=== PATIENT | male | born 1985 | race Caucasian/White ===

== ENCOUNTER 2020-09-02 21:28 | Outpatient (REF) | payer MEDICAID, SELFPAY ==
[2020-09-02 21:59] LABS: HCT 43.7 % (40.0-50.0); HGB 14.9 g/dL (13.5-17.5); MCH 33.5 pg (27.0-33.0); MCHC 34.1 % (32.0-36.0); MCV 98.2 fL (80-95); RBC 4.45 10^6/uL (4.36-5.78); RDW 13.8 % (11.8-14.1); RDW-SD 50.4 fL; WBC 6.06 10^3/uL (4.4-10.8)
[2020-09-02 22:03] LABS: ALT 32 U/L (16-63); AST 21 U/L (15-37); Albumin 3.9 g/dL (3.4-5.0); Alkaline Phosphatase 84 U/L (46-116); Anion Gap 7.2 mmol/L (3-11); BUN 11 mg/dL (7-18); Bilirubin, Total 0.4 mg/dL (0.2-1.0); CO2 27.8 mmol/L (21.0-32.0); CREATININE 0.9 mg/dL (0.70-1.30); Calcium 9.4 mg/dL (8.5-10.1); Calculated LDL 147 mg/dL (<100); Chloride 106 mmol/L (98-107); Cholesterol 207 mg/dL (<200); Glucose 85 mg/dL (74-106); HDL Cholesterol 35 mg/dL (40-60); Potassium 4.5 mmol/L (3.5-5.1); Sodium 141 mmol/L (136-145); Total Protein 7.6 g/dL (6.4-8.2); Triglyceride 125 mg/dL (<150)
[2020-09-04 08:52] LABS: HBs Antibody, Quant <3.1 mIU/mL (See Note); Hepatitis B Surface Ab Negative (See Note)
[2020-09-04 09:00] LABS: Hepatitis B Surface Ag Negative (Negative)
[2020-09-04 10:09] LABS: Hepatitis C Ab w Rflx HCV PCR Negative (Negative)
[2020-09-04 10:19] LABS: Hep A Total Ab w Rflx IgM Negative (Negative)
[2020-09-04 11:20] LABS: Syphilis Serology (RPR) Negative (Negative)
[2020-09-04 12:54] LABS: HIV-1/2 Ag & Ab Screen Reactive (Negative)
[2020-09-04 13:17] LABS: HIV 1 Ab Diff Positive (Negative)
[2020-09-04 13:18] LABS: HIV 2 Ab Diff Indeterminate (Negative)
[2020-09-04 14:11] LABS: Chlamydia Result Negative (Negative); GC Result Negative (Negative)
== END 2020-09-02 21:29 | disposition home or self-care (01) ==
LOC: LBN 21:28
PROVIDERS: Visit Provider Nurse Practitioner Family
DX: R63.5 Abnormal weight gain (principal); R49.0 Dysphonia; Z13.220 Encounter for screening for lipoid disorders; Z11.4 Encounter for screening for human immunodeficiency virus [HIV]; Z11.59 Encounter for screening for other viral diseases; Z11.3 Encounter for screening for infections with a predominantly sexual mode of transmission; Z51.81 Encounter for therapeutic drug level monitoring
CPT/HCPCS: 80053; 80061; 85027; 86701; 86702; 86706; 86709; 86803; 87340; 87389; 87491; 87591; 86592

== ENCOUNTER 2020-09-11 13:20 | Outpatient (CLI) | payer MEDICAID, SELFPAY ==
--- NOTE | 2020-09-11 17:51 | CCCE_ITS ---
Date of service: 09/11/20 Time of Service: 17:51 Comprehensive Care Clinic Note Note: [facility] [address] [place] [address] Initial [facility] Visit Information New Diagnosis of HIV Name: Josh Appiah Date of : 1985 Primary Care Provider: None Date of Service: 09/11/2020 SUBJECTIVE CC: ?I was told I have HIV by the [facility] and that you were the HIV clinic closest to [place]. They said they would refer me.? HPI: Josh Navarro is currently living in [place] having moved there during from [facility]. He had moved from [place] to [place] early this year. He says that while living there he got sick and has not felt well since the middle of June. He says he has had ?Laryngitis? and last went to the [facility] on [facility] last asking to be referred to ENT. The DENTAL CREAM MAKER there had blood work drawn with Josh Navarro?s consent. He says his last HIV test that was negative was last summer. 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 Had one sexual encounter there early this spring but thought it was safer sex. Soon after that he became ill with ?sinusitis? and an infection in his umbilicus. He was seen at a walk in clinic and given antibiotics which cleared up the umbilical infection but he thinks he never got rid of infection in his sinuses. ?I was sick for a couple weeks.? ROS Constitutional: Fatigue which was much worse in June for a couple weeks ? ?I could barely get out of bed.? Says his overall energy level is diminished from what is was a few months ago. In June also had fever, chills and night sweats. Skin: Had a light rash on his thighs and it was puretic, still at time feels itchy on the lateral thighs and on his head, but has not noted any rash or flaking of his scalp. Has long standing ?athletes foot? on both feet that has gotten worse. Head: No H/O head injury or headaches Eyes: had blurry vision in June for a few days ?when sick? that cleared. Ear/Nose/Throat: Has had hoarse throat for 2 ? months and says ?I?m a colin? and sinus drainage Mouth/Teeth: Good repair, denies mouth sores Neck: Denies pain or swelling CV: Denies palpitations or chest pain Respiratory: Denies cough or dyspnea GI: Has had some abd pain after eating and before BMs. No N/V/C/D. Says he had GERD when was 130 # heavier in his teens and early 20s. Lost that weight and none since. : Negative Musculoskeletal: Says he has a curvature of his spine, has had some hand and should joint aching and stiffness since June Endocrine: Negative Lymphatic: Has not noted any enlarged nodes Hematologic: Denies unusual bruising or bleeding Immunologic: Non sig in the past Psychiatric: Anxiety with some depression - never medicated. Denies HI or SI Allergies/Sensitivities: PCN - rash Current Medications: None Past medications Ineffective: None Past Medical History: Non sig Past Surgical History: Appendectomy in 2014 Past Psychiatric History: H/O anxiety with some depression but never medicated. Denies psychiatric hospitalization, never suicidal. Social History: Place of : [facility], grew up in [place] Gender: Male, identifies as Mata Racial Distribution: Primary Language: Gabonese Secondary Language(s): Greenlandic Current County, State of Residence: [place], [place] Marital Status: Single Family Size: Now 2 ? he is living with his Mother currently since he was ill in [place] in June. 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 Never had birds or reptiles as pets. Housing: Stable with his Mother Incarceration History: Denies History: Denies Highest Grade Completed: 2 years of college Able to read? Yes Employment: Not currently due to Covid Type of work: Musician - [employer] Income(s)/Means of Financial Support: He last worked in [place] for a few months and has a little money, his Mother is helping him right now. 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 Health Insurance: Medicaid Other payment source: None Coverage Issues: None at present ? will get VMAP Substance Abuse History: Denies Tobacco: Y If Y: Smoker ? Type/Amount: 1 ppd cigarettes ? wants to quit, has quit twice in the past ? once for 8 months and once for a year. ETOH: rare Illicit Drug Use: Denies Rx Drug Dependence: Denies IVDU Hx: Never Other Psychosocial Considerations: His Father just today. He is a bit overwhelmed with all the issues this week and the shock of his Father dying but felt it was important he come to see me today and not put it off. He has been very HIV aware and careful for many years and was taking PreP (Truvada) daily, ?I never missed a pill?, until able 1 ? years ago when due to insurance coverage issues he was not able to continue the RX. He says he has safer sex all the time and with people who, like him were on PreP and got tested regularly. His last test that was negative was last summer after his last sexual encounter in [place]. He moved to [place] where some family offered him a temporary job and that is where he met his most recent and last sexual partner, which was in [place]. He has not had sexual partners in [place] since arriving here a few weeks ago. Family History Mother: Allergies buy healthy Father: as of today, CAD, CHF, /P Bypass surgery, HTN, Heavy smoker Siblings: B ? who is in recovery from heroin Addiction, Sister who is A&W Children: None Grand Parents: All ? Paternal had DM Extended: Maternal Uncle of AIDS in [place] in the Immunization History Tetanus/TDAP: Unknown Hepatitis A: ? Hepatitis B: had one shot Flu Vaccine: No Pneumovax 23: No Prevnar 13: No Singrix: NA Menactra: No other: Covid ? Pfizer on 08/10/20 & 08/31/20 In [facility] Lipids/Glucose: normal ID Screenings PPD/Quantiferron: Not done OBJECTIVE Height: 5?10?Weight: 175 Temp: 97.4, Pulse: 84, Respirations: 16, Blood Pressure: 130/80 General: WDWNL Skin: No rashs notes, Has evidence of cracking and white between his toes ? No erythema Head: NC AT Eyes: Non icteric Ears/Nose: Clear, some frontal and maxillary sinus tenderness bilaterally Mouth/Teeth: In good repair, no lesions Pharynx: clear Neck: supple CV/Pulses: RRR, No MCRG Chest Lungs: Clear in all lobes Abdomen: NABS, ND, NT no palpable OGM Extremities: No deformities Musculoskeletal: Mild back scoliosis, no swollen or erythematous joints Neuro: grossly normal : NE Rectal: NE Lymphatic: One slightly enlarged, rubbery node in the right anterior cervical chain Psychiatric: - appearance: well groomed - eye contact: good - attitude: cooperative - speech: clear/coherent - affect: appropriate - mood: anxious - memory: short-term intact, manager terminal intact - self-perception: wnl - motor activity: normal - orientation: intact - attention: intact - thought content: wnl - perceptions: wnl - judgement: intact - insight: excellent ASSESSMENT/PLAN MD visit scheduled: October 14, 2020 Release of Records: Signed to get records from [facility] as the referral was sent to [facility] instead of [facility] Social Work/Psychiatry referral: Referred to [facility] and No Psychiatry referral needed. [facility]: Spoke with Nghia Echeverria at [facility] and Josh Navarro will look for his call Lab work ordered (if not done recently) - CBCD - CD4/8 Immunodeficiency Panel - Comprehensive Metabolic Profile - Magnesium - B12/Folate - Hepatitis Screening HAV tAb ordered, HBV Ag/sAb done /cAb ordered - Syphilis Screening/RPR done - GC, Chlamydia screen (first AM void) will need in the future Provider of Care: Destiny Jhaveri, MSN, DENTAL CREAM MAKER
== END 2020-09-11 13:21 | disposition home or self-care (01) ==
LOC: CCC 13:22
PROVIDERS: Visit Provider Nurse Practitioner Family
DX: B20 Human immunodeficiency virus [HIV] disease (principal); F41.9 Anxiety disorder, unspecified; B35.3 Tinea pedis
CPT/HCPCS: 99205

== ENCOUNTER 2020-09-18 03:51 | Outpatient (CLI) | payer MEDICAID, SELFPAY ==
[2020-09-18 09:08] LABS: Abs Immature Grans 0.01 10^3/uL (0.0-0.06); Absolute Basophil Count 0.05 10^3/uL (0.0-0.2); Absolute Eosinophil Count 0.21 10^3/uL (0.0-0.7); Absolute Lymphocyte Count 2.55 10^3/uL (1.2-3.4); Absolute Monocyte Count 0.62 10^3/uL (0.1-0.8); Absolute Neutrophil Count 2.64 10^3/uL (1.2-6.7); Basophils % 0.8; Eosinophils % 3.5; HCT 43.4 % (40.0-50.0); HGB 14.7 g/dL (13.5-17.5); Immature Grans % 0.2; Lymphocytes % 41.9; MCH 33.6 pg (27.0-33.0); MCHC 33.9 % (32.0-36.0); MCV 99.3 fL (80-95); MPV 9.4 fL (8.0-11.0); Monocytes % 10.2; Neutrophils % 43.4; Nucleated RBC 0 %; Platelet Count 221 10^3/uL (130-400); RBC 4.37 10^6/uL (4.36-5.78); RDW 13.2 % (11.8-14.1); RDW-SD 48.9 fL; WBC 6.08 10^3/uL (4.4-10.8)
[2020-09-18 10:07] LABS: ALT 29 U/L (16-63); AST 20 U/L (15-37); Albumin 3.6 g/dL (3.4-5.0); Alkaline Phosphatase 66 U/L (46-116); Anion Gap 8.3 mmol/L (3-11); BUN 11 mg/dL (7-18); Bilirubin, Total 0.4 mg/dL (0.2-1.0); CO2 27.7 mmol/L (21.0-32.0); Chloride 108 mmol/L (98-107); Folate 13.2 ng/mL (8.6-20.0); Glucose 92 mg/dL (74-106); Magnesium 1.7 mg/dL (1.8-2.4); Sodium 144 mmol/L (136-145); Total Protein 7.1 g/dL (6.4-8.2); Vitamin B12 344 pg/mL (193-986)
[2020-09-19 11:17] LABS: Hep B Core Antibody Negative (Negative)
[2020-09-19 11:26] LABS: Hep A Total Ab w Rflx IgM Negative (Negative)
[2020-09-19 14:48] LABS: HIV 1 RNA Qualitative Detected copies/mL (Undetected); HIV 1 RNA Quantitative 9563 copies/mL (Undetected)
[2020-09-19 15:48] LABS: 4/8 Ratio 0.63 (>=0.90); Absolute CD3 2377 Cells/uL (840-2,669); Absolute CD8 1448 Cells/uL (154-1,097); CD3 88 % (56-84); CD4 34 % (31-64); CD8 54 % (9-39)
[2020-09-26 09:18] LABS: Doravirine SUSC; Emitricitabine SUSC; HIV-1 Genotypic PR-RT Drug Res INTERP; Lopinavir and Ritonavir SUSC; Tipranavir andRitonavir SUSC
== END 2020-09-18 03:52 | disposition home or self-care (01) ==
LOC: LBO 03:51
PROVIDERS: Visit Provider Nurse Practitioner Family
DX: B20 Human immunodeficiency virus [HIV] disease (principal)
CPT/HCPCS: 36415; 80053; 86704; 86709; 87536; 82607; 82746; 83735; 85025; 86359; 86360; 87901

== ENCOUNTER 2020-10-11 23:39 | Emergency (ER) | payer MEDICAID, SELFPAY ==
[2020-10-11 23:45] VITALS: BP 156/86; PULSE 72; RESP 20; TEMP 37.2; O2SAT 98
--- NOTE | 2020-10-11 23:49 | ED.GENADUL_ITS ---
Discharge Plan Disposition Patient Disposition: HOME Condition: Good Discharge Details Clinical Impression: Esophagitis, URI (upper respiratory infection) Primary Care Provider: Isai Gracia ED Provider: Rakesh Ortiz [place] Meds and New Rx's Prescriptions: New pantoprazole 40 mg tablet,delayed release (DR/EC) 40 mg PO DAILY Qty: 30 RF: 0 Continued sertraline [Zoloft] 50 mg Tablet 50 mg PO DAILY RF: 0 Discharge Instructions Additional Instructions: CT scan suggests thickening of the wall of the esophagus consistent with esophagitis. Given your recent CD4 count which was very good doubt opportunistic infection. We will treat as acid related disease and start pantoprazole. Avoid caffeine, nonsteroidals, alcohol, tobacco. If worsening symptoms or no improvement would likely need EGD. Otherwise, symptoms seem viral in nature and while unlikely to be Covid swab will be sent. Be sure to rest and drink plenty of fluids. Use acetaminophen as needed for discomfort. Follow-up with primary care as planned. Return to ED if inability to swallow, difficulty breathing, worsening or new chest pain, vomiting blood, other concerns. Stand Alone Forms: PENDING COVID-19 TESTING Referrals: Isai Gracia [Primary Care Provider] - Medical Decision Making Patient presenting with 3 days of sore throat now associated with cough, pain with swallowing pulse in the throat and the chest, pleuritic right-sided pain. He is afebrile here. Saturations are normal. Pulses normal. He does not talk. Some erythema and edema of the uvula with very tiny ulcers present suggesting viral etiology. No evidence of thrush, exudate, oropharyngeal edema. Lung sounds clear. In reviewing his laboratory studies from work-up of his newly diagnosed HIV, his CD4 count is greater than 500. Unlikely that he has any opportunistic infection. However, the pain with swallowing in his chest concerns for possibility of mass, lymph node. Will place IV and get CBC and CMP to compare to previous as well as CTA chest. Laboratory studies look fine tonight. CTA of the chest reveals no PE or dissection. No acute lung pathology. Evidence of thoracic esophageal mural thickening consistent with esophagitis. Given that patient's CD4 count is so good doubt that this is opportunistic infection like Loreta or CMV. More likely acid reflux and will treat as such with caveat that he will need EGD if worsening symptoms or no improvement. He has follow-up this coming week. Will swab for Covid prior to discharge given sore throat and cough though unlikely given his vaccination status. Supportive care but would avoid ibuprofen given the esophagitis and stick with acetaminophen for discomfort. Return to ED for inability to swallow, difficulty breathing, worsening pain, vomiting blood, other concerns. Medical Records Medical records reviewed: Yes I reviewed the patient's medical records. Lab Data Lab results reviewed: Yes I reviewed the patient's lab results. HPI General Mode of arrival: ambulatory . Date/Time Provider Initiated Documentation: 10/11/20 23:44 . Limitations to Documentation: no limitations . Information obtained by: patient, RN notes reviewed and old records reviewed . HPI Narrative: Patient presents to ED with right sided chest pain that is worse with swallowing, breathing. Patient states 3 days ago he developed sore throat and swollen lymph nodes in his neck. He has not had fever or chills. He has subsequently developed cough which is productive of increased sputum. Also developed the pain on the right side within the last day. He denies feeling short of breath. He denies any abdominal pain or GI symptoms. He denies any headache or earache. He has had Covid vaccinations. He has also recently been diagnosed HIV positive. Has an appointment this coming week to start medications. He denies rash, myalgias, arthralgias. He did take some ibuprofen before coming in. States that it feels like something is stuck there whenever he tries to swallow with discomfort when coughing or breathing. Related Data Home Medications Medication Instructions Recorded Confirmed pantoprazole 40 mg PO DAILY #30 tab 10/12/20 sertraline [Zoloft] 50 mg PO DAILY 10/12/20 10/12/20 Previous Rx's Medication Instructions Recorded pantoprazole 40 mg PO DAILY #30 tab 10/12/20 Allergies Allergy/AdvReac Type Severity Reaction Status Date / Time amoxicillin Allergy Unverified 10/12/20 00:01 Penicillins Allergy Unverified 10/12/20 00:02 Review of Systems Narrative: 01/02 Review of Systems completed and is negative except as stated above in HPI (Systems reviewed: Const, Eyes, ENT, Resp, CV, GI, , MSK, Skin, Neuro) [facility] Medical History HIV (human immunodeficiency virus infection) Surgical History S/P appendectomy Social History Smoking/Tobacco Use Status: Current every day Tobacco Type: cigarettes Smoking risk assessment performed?: Yes Alcohol Intake: current Alcohol Intake frequency: holidays/special occasions only Drug use: Socially Substance use type: marijuana Do you feel safe at home: Yes Do you feel safe in your relationship?: Yes Exam Narrative Exam Narrative: Const: WDWN male in NAD. HEENT: NC/AT. Normal facial exam. Oropharynx with mild erythema and edema of the uvula and very small ulcerations. No edema or erythema elsewhere. No exudate. Eyes: Normal conjunctiva and sclera. Neck: Supple. Trachea midline. Enlarged cervical adenopathy anteriorly which are tender to palpation. Lungs: Normal respiratory effort. Lungs are clear. Cor: RRR without murmur/gallop. Good radial pulses. GI: Soft. NT/ND. No guarding or rebound. Neuro: A+O x 3. Normal speech, mentation, gait. Cranial nerves II - XII grossly intact. No gross motor or sensory deficit. Ext: No C/C/E. No calf tenderness. Skin: Warm and dry without rash.
[2020-10-12] VITALS (7 sets, daily range): BP systolic 137–155; BP diastolic 77–81; PULSE 68–81; RESP 15–20; O2SAT 96–98
[2020-10-12 00:23] LABS: Abs Immature Grans 0.03 10^3/uL (0.0-0.06); Absolute Basophil Count 0.08 10^3/uL (0.0-0.2); Absolute Lymphocyte Count 2.55 10^3/uL (1.2-3.4); Absolute Monocyte Count 1.01 10^3/uL (0.1-0.8); Absolute Neutrophil Count 5.65 10^3/uL (1.2-6.7); Basophils % 0.8; Eosinophils % 3.1; HCT 44.6 % (40.0-50.0); HGB 15.3 g/dL (13.5-17.5); Immature Grans % 0.3; Lymphocytes % 26.5; MCH 33.1 pg (27.0-33.0); MCHC 34.3 % (32.0-36.0); MCV 96.5 fL (80-95); MPV 8.7 fL (8.0-11.0); Monocytes % 10.5; Neutrophils % 58.8; Nucleated RBC 0 %; Platelet Count 229 10^3/uL (130-400); RBC 4.62 10^6/uL (4.36-5.78); RDW-SD 45.7 fL; WBC 9.62 10^3/uL (4.4-10.8)
[2020-10-12 00:38] LABS: ALT 15 U/L (16-63); AST 17 U/L (15-37); Albumin 3.7 g/dL (3.4-5.0); Alkaline Phosphatase 90 U/L (46-116); Anion Gap 12.5 mmol/L (3-11); BUN 17 mg/dL (7-18); Bilirubin, Total 0.3 mg/dL (0.2-1.0); CO2 23.5 mmol/L (21.0-32.0); CREATININE 0.8 mg/dL (0.70-1.30); Calcium 9.5 mg/dL (8.5-10.1); Chloride 104 mmol/L (98-107); Glucose 133 mg/dL (74-106); Potassium 4.2 mmol/L (3.5-5.1); Sodium 140 mmol/L (136-145); Total Protein 7.8 g/dL (6.4-8.2)
[2020-10-12] MEDS: Normal Saline - Diluent 50 ML VIAL IV (00:47)
[2020-10-12] MEDS: Normal Saline Flush 10 ML SYR IVP (00:47)
[2020-10-12] MEDS: Omnipaque 350 MG/ML 100 ML BTL IJ (00:47)
--- NOTE | 2020-10-12 00:48 | DI.CT_ITS ---
Exam(s) CT CHEST PE CTA EXAM: CT CHEST PE CTA CLINICAL HISTORY: right side pleuritic CP. TECHNIQUE: Imaging Protocol: Axial CT angiography was performed with multi-slice acquisition and mu lti-planar and/or 3D reconstructions. CONTRAST MATERIAL: Intravenous: Omnipaque 350 Contrast volume:58 mL COMPARISON: No exams were available for comparison FINDINGS: Tracheobronchial tree: Patent where visualized. Pulmonary parenchyma: There are few scattered noncalcified pulmonary nodules. They measure up to 4 m m in size. A few are associated with a fissure and may represent perifissural lymph nodes. No archi tectural distortion. Pulmonary Arteries: No evidence of filling defect to suggest pulmonary emboli. Mediastinum and Loretta: No dominant adenopathy or fluid collection. There does appear to be diffuse cir cumferential thickening of the visualized esophagus. Visualized thyroid gland: Unremarkable. Pleura: No effusion or pneumothorax. Heart: The heart is not dilated. No coronary artery calcifications are seen. No pericardial effusion. Aorta: Thoracic aorta non-dilated. No evidence of dissection. Upper abdomen: Unremarkable. Soft tissues: Unremarkable. Bones: Normal. IMPRESSION: 1. No evidence of pulmonary embolism, thoracic aortic dissection or aneurysm. 2. Circumferential esophageal thickening. Inflammatory infectious esophagitis may have this appearan ce. Please correlate clinically. Follow-up as clinically appropriate. 3. Small scattered noncalcified pulmonary nodules. If there is no significant clinical history, no f ollow-up is recommended. If appropriate clinical history (history of smoking or other risk factors), consider 12 month follow-up CT scan of the chest. RADIATION DOSE DELIVERED: 374.27mGy.cm Total DLP DATA REPOSITORY: All CT scans at this facility are submitted to the National Radiology Data Registry (NRDR) Dose Index Registry (DIR) with the [employer] (ACR). RADIATION OPTIMIZATION: All CT scans at this facility use at least one of these dose optimization te chniques: automated exposure control; mA and/or kV adjustment per patient size (includes targeted exa ms where dose is matched to clinical indication); or iterative reconstruction.
[2020-10-12] MEDS: Lactated Ringers 1,000 ML 200 ML IV (00:50)
--- NOTE | 2020-10-12 00:57 | DI.VRAD_ITS ---
PROCEDURE INFORMATION: Exam: CTA Chest With Contrast Exam date and time: 10/12/2020 12:16 AM Age: 35 years old Clinical indication: Other: Right side pleuritic cp TECHNIQUE: Imaging protocol: Computed tomographic angiography of the chest with contrast. 3D rendering (Not supervised by radiologist): MIP and/or 3D reconstructed images were created by the technologist. Radiation optimization: All CT scans at this facility use at least one of these dose optimization techniques: automated exposure control; mA and/or kV adjustment per patient size (includes targeted exams where dose is matched to clinical indication); or iterative reconstruction. Contrast material: OMNIPAQUE 350; Contrast volume: 58 ml; Contrast route: INTRAVENOUS (IV); COMPARISON: No relevant prior studies available. FINDINGS: Pulmonary arteries: No pulmonary embolism identified. Aorta: No thoracic aortic aneurysm or dissection. Thyroid: Thyroid gland partially excluded from view but grossly unremarkable through its visualized portion. Lungs: No pulmonary consolidation. 4 mm x 8 mm oval nodular pulmonary density on the right, image 34 of series 4. Pleural spaces: No pleural effusion or pneumothorax. Heart: Normal sized heart. Mediastinal space: Circumferential mural thickening throughout much of the thoracic esophagus. Esophagitis? Lymph nodes: No pathologically enlarged mediastinal or hilar lymph nodes. Bones/joints: Lower ribs partially excluded from view and incompletely evaluated. Otherwise, no acute fracture seen among the bones of the chest. Spinal degenerative change with endplate irregularities and small Schmorl's nodes at multiple levels. Soft tissues: No gross soft tissue mass or fluid collection seen in the chest wall. IMPRESSION: 1. No active disease is seen in the chest. 2. Circumferential mural thickening throughout much of the thoracic esophagus. Esophagitis could have this appearance. Clinical correlation is recommended. esophageal mucosa could be better evaluated by endoscopy. Dictated and Authenticated by: Ramon Whitney MD. Ordering:CY Cameron MD
[2020-10-13 10:32] LABS: COVID-19 RT-PCR UVMMC Result Negative (Negative)
--- NOTE | 2020-10-13 17:43 | NUR.NOTE ---
notified by phone that covid swab is negative.Nursing Note:
== END 2020-10-12 01:30 | disposition home or self-care (01) ==
PROVIDERS: Emergency Provider Emergency Medicine; PCP Family Medicine
DX: K20.90 Esophagitis, unspecified without bleeding (principal); J06.9 Acute upper respiratory infection, unspecified; F17.210 Nicotine dependence, cigarettes, uncomplicated; Z21 Asymptomatic human immunodeficiency virus [HIV] infection status
CPT/HCPCS: 36415; 71275; 80053; 96360; 99285; U0003; 85025; 99284; J3490

== ENCOUNTER 2020-12-04 02:51 | Outpatient (CLI) | payer MEDICAID, SELFPAY ==
[2020-12-04 13:15] LABS: ALT 40 U/L (16-63); AST 24 U/L (15-37); Albumin 3.9 g/dL (3.4-5.0); Alkaline Phosphatase 76 U/L (46-116); Anion Gap 9.2 mmol/L (3-11); BUN 18 mg/dL (7-18); Bilirubin, Total 0.5 mg/dL (0.2-1.0); CO2 25.8 mmol/L (21.0-32.0); CREATININE 1.1 mg/dL (0.70-1.30); Calcium 8.9 mg/dL (8.5-10.1); Chloride 106 mmol/L (98-107); Glucose 105 mg/dL (74-106); Potassium 4.2 mmol/L (3.5-5.1); Sodium 141 mmol/L (136-145); Total Protein 7.7 g/dL (6.4-8.2)
[2020-12-06 13:49] LABS: HIV 1 RNA Qualitative Detected copies/mL (Undetected); HIV 1 RNA Quantitative 73 copies/mL (Undetected)
== END 2020-12-04 02:52 | disposition home or self-care (01) ==
LOC: LBO 02:51
PROVIDERS: PCP Family Medicine; Visit Provider Nurse Practitioner Family
DX: B20 Human immunodeficiency virus [HIV] disease (principal); Z79.899 Other long term (current) drug therapy
CPT/HCPCS: 36415; 80053; 87536

== ENCOUNTER 2020-12-23 09:30 | Outpatient (CLI) | payer MEDICAID, SELFPAY ==
--- NOTE | 2020-12-23 12:56 | W.CCNOTE ---
Date of service: 12/23/20 Time of Service: 09:30
== END 2020-12-23 09:31 | disposition home or self-care (01) ==
LOC: CCC 12:55
PROVIDERS: PCP Family Medicine; Visit Provider Nurse Practitioner Family
DX: B20 Human immunodeficiency virus [HIV] disease (principal); Z79.899 Other long term (current) drug therapy; Z23 Encounter for immunization
CPT/HCPCS: 90471; 90472; 90670; 90686; 99213

== ENCOUNTER 2021-02-10 03:50 | Outpatient (CLI) | payer MEDICAID, SELFPAY ==
[2021-02-10 11:27] LABS: Abs Immature Grans 0.03 10^3/uL (0.0-0.06); Absolute Basophil Count 0.07 10^3/uL (0.0-0.2); Absolute Eosinophil Count 0.27 10^3/uL (0.0-0.7); Absolute Lymphocyte Count 3.02 10^3/uL (1.2-3.4); Absolute Monocyte Count 0.75 10^3/uL (0.1-0.8); Absolute Neutrophil Count 3.51 10^3/uL (1.2-6.7); Basophils % 0.9; Eosinophils % 3.5; HCT 46.2 % (40.0-50.0); Immature Grans % 0.4; Lymphocytes % 39.5; MCH 33.2 pg (27.0-33.0); MCHC 34.6 % (32.0-36.0); MCV 95.9 fL (80-95); MPV 8.9 fL (8.0-11.0); Monocytes % 9.8; Neutrophils % 45.9; Nucleated RBC 0 %; Platelet Count 248 10^3/uL (130-400); RBC 4.82 10^6/uL (4.36-5.78); RDW 12.8 % (11.8-14.1); RDW-SD 45.7 fL; WBC 7.65 10^3/uL (4.4-10.8)
[2021-02-10 12:18] LABS: ALT 21 U/L (16-63); AST 12 U/L (15-37); Albumin 3.9 g/dL (3.4-5.0); Alkaline Phosphatase 80 U/L (46-116); Anion Gap 7.7 mmol/L (3-11); BUN 16 mg/dL (7-18); Bilirubin, Total 0.4 mg/dL (0.2-1.0); CO2 28.3 mmol/L (21.0-32.0); Calcium 9.4 mg/dL (8.5-10.1); Chloride 106 mmol/L (98-107); Glucose 110 mg/dL (74-106); Potassium 3.9 mmol/L (3.5-5.1); Sodium 142 mmol/L (136-145); Total Protein 7.4 g/dL (6.4-8.2)
[2021-02-11 14:23] LABS: 4/8 Ratio 1.15 (>=0.90); Absolute CD3 2542 Cells/uL (840-2,669); Absolute CD8 1185 Cells/uL (154-1,097); CD3 82 % (56-84); CD4 44 % (31-64); CD8 38 % (9-39)
[2021-02-14 12:12] LABS: HIV 1 RNA Qualitative Detected copies/mL (Undetected); HIV 1 RNA Quantitative 72 copies/mL (Undetected)
== END 2021-02-10 03:51 | disposition home or self-care (01) ==
LOC: LBO 03:51
PROVIDERS: Internal Medicine Infectious Disease; PCP Family Medicine; Visit Provider Nurse Practitioner Family
DX: B20 Human immunodeficiency virus [HIV] disease (principal); Z79.899 Other long term (current) drug therapy
CPT/HCPCS: 36415; 80053; 87536; 85025; 86359; 86360

== ENCOUNTER 2021-04-01 02:39 | Outpatient (CLI) | payer MEDICAID, SELFPAY | END 2021-04-01 02:40 | disposition home or self-care (01) | LOC: LBO 02:39 | PROVIDERS: PCP Family Medicine; Visit Provider Nurse Practitioner Family ==

== ENCOUNTER 2021-04-15 04:10 | Outpatient (CLI) | payer MEDICAID, SELFPAY ==
[2021-04-15 11:13] LABS: Abs Immature Grans 0.03 10^3/uL (0.0-0.06); Absolute Basophil Count 0.08 10^3/uL (0.0-0.2); Absolute Eosinophil Count 0.12 10^3/uL (0.0-0.7); Absolute Lymphocyte Count 2.74 10^3/uL (1.2-3.4); Absolute Monocyte Count 0.63 10^3/uL (0.1-0.8); Absolute Neutrophil Count 4.21 10^3/uL (1.2-6.7); Eosinophils % 1.5; HCT 44.6 % (40.0-50.0); HGB 15.4 g/dL (13.5-17.5); Immature Grans % 0.4; Lymphocytes % 35.1; MCH 33.4 pg (27.0-33.0); MCHC 34.5 % (32.0-36.0); MCV 96.7 fL (80-95); MPV 9.1 fL (8.0-11.0); Monocytes % 8.1; Neutrophils % 53.9; Nucleated RBC 0 %; Platelet Count 241 10^3/uL (130-400); RBC 4.61 10^6/uL (4.36-5.78); RDW-SD 42.9 fL; WBC 7.81 10^3/uL (4.4-10.8)
[2021-04-15 12:02] LABS: ALT 18 U/L (16-63); AST 13 U/L (15-37); Albumin 3.6 g/dL (3.4-5.0); Alkaline Phosphatase 83 U/L (46-116); Anion Gap 8.2 mmol/L (3-11); BUN 19 mg/dL (7-18); Bilirubin, Total 0.3 mg/dL (0.2-1.0); CO2 26.8 mmol/L (21.0-32.0); CREATININE 1.2 mg/dL (0.70-1.30); Calcium 8.9 mg/dL (8.5-10.1); Chloride 108 mmol/L (98-107); Glucose 93 mg/dL (74-106); Potassium 4.2 mmol/L (3.5-5.1); Sodium 143 mmol/L (136-145)
[2021-04-16 16:54] LABS: 4/8 Ratio 1.26 (>=0.90); Absolute CD3 2371 Cells/uL (840-2,669); Absolute CD8 1044 Cells/uL (154-1,097); CD3 82 % (56-84); CD4 46 % (31-64); CD8 36 % (9-39)
[2021-04-17 13:12] LABS: HIV 1 RNA Qualitative Detected copies/mL (Undetected); HIV 1 RNA Quantitative 47 copies/mL (Undetected)
== END 2021-04-15 04:11 | disposition home or self-care (01) ==
LOC: LBO 04:10
PROVIDERS: PCP Family Medicine; Visit Provider Nurse Practitioner Family
DX: B20 Human immunodeficiency virus [HIV] disease (principal); Z79.899 Other long term (current) drug therapy
CPT/HCPCS: 36415; 80053; 87536; 85025; 86359; 86360

== ENCOUNTER 2021-07-07 02:47 | Outpatient (CLI) | payer MEDICAID, SELFPAY ==
[2021-07-10 11:13] LABS: HIV 1 RNA Qualitative Detected copies/mL (Undetected); HIV 1 RNA Quantitative 52 copies/mL (Undetected)
== END 2021-07-07 02:48 | disposition home or self-care (01) ==
LOC: LBO 02:47
PROVIDERS: PCP Family Medicine; Visit Provider Nurse Practitioner Family
DX: B20 Human immunodeficiency virus [HIV] disease (principal); Z79.899 Other long term (current) drug therapy
CPT/HCPCS: 36415; 87536

== ENCOUNTER 2021-10-07 02:17 | Outpatient (CLI) | payer MEDICAID, SELFPAY ==
--- OUTSIDE RECORDS SUMMARY | 2021-10-07 02:18 | XMS_ITS | Encounter Summary ---
:1985 Author Organization [facility] Address [address] [place] [address] Care Team Providers Name Role Phone Unavailable Primary Care Provider Unavailable Reason for Visit Reason Comments Follow-up Encounter Details Date Type Department Care Team Description 12/16/2020 Telemedicine [facility] Frantz Geronimo, Jonah mptomatic HIV Infectious Disease - DO infection (HCC-CMS) [address] (Primary Dx) [address] [place] [address], [address], [place] [address] (Wo rk) Social History Tobacco Use Types Packs/Day Years Used Date Never Assessed Sex Assigned at Date Recorded Male 10/07/2020 12:27 EDT documented as of this encounter Progress Notes Frantz Geronimo, DO - 12/16/2020 0930 EDT I spent a total of 30 minutes on the date of this encounter meeting with the patient and reviewing documentation/coordinating care as described in the above note. No procedures were performed at the time of the visit. Division of Infectious Disease Follow up/Progress Note 12/12/20 12:57 TELEMEDICINE VIDEO VISIT Today's visit was provided through telemedicine video conferencing: The location of the patient : Pt came to Office at [facility] The location of the provider: Office The following staff and their role did participate in today's encounter visit: Frantz Geronimo, DO The concept of ???Telemedicine?? has been described to the patient.? Patient has been informed of the anticipated benefits and possible risks.? Patient understands the information provided regarding telemedicine, has had the opportunity to ask questions about this information, and all questions have been answered to patient???s satisfaction. Patient consents for the use of telemedicine in his/her medical care and authorizes the transmission of any relevant medical information to providers and theirstaff involved in patient???s medical or mental health care. Chief Complaint: HIV care ?? HPI: Mr. Appiah is a 35 y.o. male who is here for HIV follow up. Patient diagnosed with HIV summer 2020 when he presented to an urgent care in [facility] to restart PrEP which he had been off of sinceDe 2018. His last known HIV negative test dates back to summer 2019 per his report while he was living in [place]. His initial panel of labs collected 18 September 2020 shows an HIV genotype with no relevant mutations, his initial CD4 count Aug 2020 916, his initial viral load is 9563. Started on Biktarvy in October 2020. Follow up HIV VL 04 Dec 2020 73 and creat 1.1, ast 24, alt 40. ?? Please see initial eval note from September 2020 for back ground. Since starting Biktarvy in October 2020,pt with perfect adherence. He gets 30-day supply at a time and his mom assists him with his adherence. He has a great rapport with his primary care provider who is helping to manage his anxiety. Work seems to be improving as the pandemic improves as well. ?? Review of Systems: 10-point review of systems is negative except as noted in the HPI. ?? Past Medical History: No past medical history on file. Anxiety GERD HIV dx 2020 ?? Past Surgical History: No past surgical history on file. Appdx Hemorrhoid surgery ?? No current outpatient medications on file. ?? Meds Zoloft (new in September 2020) ?? Not on File ?? 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 Relationships / Living Situation: Single, last sexual contact [place] (thinks that where he got infected)Apr 2020. MSM. . Father recently 2020. Travel:Born in [facility]. Pt moved to [place] after highschool and has lived in [place] for work. 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 Plans to go back out on he road in a few more months. Making money via [employer] type work locally. Animal exposure: No pets Food: No raw milk Other comments: Routine childhood vaccines as child in [place]. ?? Social History ?? Socioeconomic History ??? Marital status: Not on file ? Spouse name: Not on file ??? Number of children: Not on file ??? Years of education: Not on file ??? Highest education level: Not on file Occupational History ??? Not on file Tobacco Use ??? Smoking status: Not on file Substance and Sexual Activity ??? Alcohol use: Not on file ??? Drug use: Not on file ??? Sexual activity: Not on file Other Topics Concern ??? Not on file Social History Narrative ??? Not on file ?? Social Determinants of Health ?? Financial Resource Strain: ??? Difficulty of Paying Living Expenses: Food Insecurity: ??? Worried About Running Out of Food in the Last Year: ??? Ran Out of Food in the Last Year: Transportation Needs: ??? Lack of Transportation (Medical): ??? Lack of Transportation (Non-Medical): Physical Activity: ??? Days of Exercise per Week: ??? Minutes of Exercise per Session: Stress: ??? Feeling of Stress : Social Connections: ??? Frequency of Communication with Friends and Family: ??? Frequency of Social Gatherings with Friends and Family: ??? Attends Sikh Services: ??? Active Member of Clubs or Organizations: ??? Attends Club or Organization Meetings: ??? Marital Status: ? Family history: Pertinent for Uncle of AIDS 1989 ?? The Family History was reviewed and is non-contributory for a past history of infection or immunocompromised state ?? Physical Exam General: NAD, very pleasant ?? Assessment and Plan: ?? #) HIV -Newly diagnosed in August 2020. Initial genotype August 2020 no relevant mutations. Had been off prep since February 2019. Suspect he was infected in April 2020 timeframe. - Prior regimens include N/A - Biktarvy started October 2020. Gets 30 days at a time. - Last CD4 count 18 September 2020 916 - Last HIV viral load Nov 2020 73 - OI prophylaxis: N/A - Compliance: excellent - Sexual activity: Not currently - G/C, RPR states these were performed at primary care provider's office but we need to confirm this. - HBV/HCV August 2020 hepatitis A total antibody negative, hepatitis B core antibody negative, Bit by dog 2019 time frame and got Td by report. - Dental needs to be addressed at next visit. - PCM is Dr Isai Hernandez at [facility]. - Follow-up with us in 2 months. We will get another viral load at that time to make sure that he becomes < 20 with continued ART. ?? #) Health maintenance - Cholesterol: No results found for: CHOL, HDL, LDLBASE, TRIG, CHOLHDL - Diabetes: No results found for: HGBA1C - Colonoscopy: Colonoscopy as a teenager while in [facility]. Unclear the findings. - Immunizations: COVID July-August 2020. Destiny will give a flu shot next week and start him on his Prevnar/Pneumovax. We will need to address hepatitis A, hepatitis B, meningitis and HPV based on availability. Patient might have to get these vaccines at PCM's office. ?? 3) GERD, much improved with the PPI ?? 4) Anxiety, much improved since he was started on Zoloft by his new PCM and pt happy with progress and may ask to increase the dose a little.. ?? It has been a pleasure seeing Mr. Appiah in clinic today. ?? Frantz Geronimo DO Pager [phone] Infectious Diseases ? Currently employed: No ?? Adherence counseling: Yes ?? Linguistic services: No ?? Patient with HIV (-) partner: N/A ?? HIV (-) partner tested within the last 12 months: N/A ?? Partner notification discussed: Yes ?? Social History Social History ?? Tobacco Use Smoking Status Not on file ? Smoking cessation discussed: Yes ?? Seen by dentist in the past year. No ?? Referred to dentist at this visit: No ?? Housing: Stable ?? HIV risk reduction counseling: Yes ?? Screened for mental health: Yes ?? Screened for substance abuse: Yes ?? Current substance use (used more than once in the past 12 months): none documented in this encounter Plan of Treatment Upcoming Encounters Date Type Specialty Care Team Description 10/13/2021 Telemedicine Infectious Disease Gabe Geronimo, DO [address] [facility], [address] [place], [place] [address] (Wo rk) documented as of this encounter Visit Diagnoses Diagnosis Symptomatic HIV infection (HCC-CMS) (HCC ) - Primary Human immunodeficiency virus [HIV] disea se documented in this encounter
--- OUTSIDE RECORDS SUMMARY | 2021-10-07 02:18 | XMS_ITS | Encounter Summary ---
:1985 Author Organization [facility] Address [address] [place] [address] Care Team Providers Name Role Phone Isai Gracia MD Primary Care Provider Encounter Details Date Type Department Care Team Description 09/03/2020 Lab Requisition [facility] Outr Resulting Lab, Pathology & Laboratory Provider [facility] [address] [place] [address] Social History Tobacco Use Types Packs/Day Years Used Date Never Assessed Sex Assigned at Date Recorded Male 10/07/2020 12:27 EDT documented as of this encounter Plan of Treatment Upcoming Encounters Date Type Specialty Care Team Description 10/13/2021 Telemedicine Infectious Disease Gabe Geronimo, DO [address] [facility], [facility] [address] [place], [place] [phone] (Wo rk) documented as of this encounter Procedures Procedure Name Priority Date/Time Associated Comments Diagnosis CHLAMYDIA/N. Routine 09/02/2020 15:23 Results for this GONORRHOEAE AMPLIFIED EDT proced ure are in RNA the results section. documented in this encounter Results CHLAMYDIA/N. GONORRHOEAE AMPLIFIED RNA (09/02/2020 15:23 EDT) Pathologist Sig nature Gonococcus Result Negative Negative [facility] Chlamydia Result Negative Negative [facility] Specimen Urine - Urine, Initial Void Performing Organization Address City/State/ZIP Code Phon e Number [facility] [address] [place] [address] SERVICES documented in this encounter Visit Diagnoses Not on filedocumented in this encounter Care Teams Line Technician Relationship Specialty Start Date End Date Isai Gracia MD PCP - General 07/03/21 [address] [place] [address] documented as of this encounter
--- OUTSIDE RECORDS SUMMARY | 2021-10-07 02:18 | XMS_ITS | Encounter Summary ---
:1985 Author Organization [facility] Address [address] [place] [address] Care Team Providers Name Role Phone Isai Gracia MD Primary Care Provider Encounter Details Date Type Department Care Team Description 09/18/2020 Lab Requisition [facility] Outr Resulting Lab, Pathology & Laboratory Provider [facility] [address] [place] [address] Social History Tobacco Use Types Packs/Day Years Used Date Never Assessed Sex Assigned at Date Recorded Male 10/07/2020 12:27 EDT documented as of this encounter Plan of Treatment Upcoming Encounters Date Type Specialty Care Team Description 10/13/2021 Telemedicine Infectious Disease Gabe Geronimo, DO [address] [facility], [address] [place], [place] [phone] (Wo rk) documented as of this encounter Procedures Procedure Name Priority Date/Time Associated Diagnosis Comme nts HEPATITIS A TOTAL Routine 09/18/2020 8:40 EDT Res ults for this ANTIBODY W REFLEX procedure are in the results section. HEPATITIS B CORE Routine 09/18/2020 8:40 EDT Resu lts for this ANTIBODY (TOTAL) procedure a re in the results section. documented in this encounter Results HEPATITIS B CORE ANTIBODY (TOTAL) (09/18/2020 8:40 EDT) Pathologist Sig nature Hepatitis B Core Ab, Negative Negative [facility] Specimen Blood - Venous blood (substance) Performing Organization Address City/State/ZIP Code Phon e Number [facility] [address] [place] [address] SERVICES HEPATITIS A TOTAL ANTIBODY W REFLEX (09/18/2020 8:40 EDT) Pathologist Sig nature Hepatitis A Antibody, Negative Negative [facility] Specimen Blood - Venous blood (substance) Narrative [facility] - 09/19/2020 11:22 EDT The result of this assay can be falsely elevated (Positive) due to the consumption of Biotin. Performing Organization Address City/State/ZIP Code Phon e Number [facility] [address] [place] [address] SERVICES documented in this encounter Visit Diagnoses Not on filedocumented in this encounter Care Teams Pharmacy Messenger Relationship Specialty Start Date End Date Isai Gracia MD PCP - General 07/03/21 [address] [place] [address] documented as of this encounter
--- OUTSIDE RECORDS SUMMARY | 2021-10-07 02:18 | XMS_ITS | Clinical Summary ---
:1985 Author Organization [facility] Address [address] [place] [address] Care Team Providers Name Role Phone Isai Gracia MD Primary Care Provider Medications Medication Sig Dispensed Refills Start Date End Date Status bictegravir-emtri Take 1 30 Tablet 5 09/29/2021 A ctive citabine-tenofovi Tablet by r alafenamide mouth daily. (BIKTARVY) 50-200-25 mg per tablet bictegravir-emtri Take 1 30 Tablet 11 04/25/2021 09/29/2021 Discontinued citabine-tenofovi Tablet by (R eorder) r alafenamide mouth daily. (BIKTARVY) 50-200-25 mg per tablet Encounters Date Type Specialty Care Team Description 09/29/2021 Telephone Infectious Disease Frnatz Geronimo, Me dication Problem DO 07/14/2021 Telemedicine Infectious Disease Frantz Geronimo, As ymptomatic HIV DO infection, with no history of HIV- related illness (HCC) ( Primary Dx) from Last 3 Months Social History Tobacco Use Types Packs/Day Years Used Date Never Assessed Sex Assigned at Date Recorded Male 10/07/2020 12:27 EDT Plan of Treatment Upcoming Encounters Date Type Specialty Care Team Description 10/13/2021 Telemedicine Infectious Disease Gabe Geronimo, DO [address] [facility], [facility] [address] [place], [place] [phone] (Wo rk) Health Maintenance Due Date Last Done Comments COVID-19 Vaccine (#1) 1990 Hepatitis C Screen Completed 09/02/2020 Insurance Payer Benefit Plan / Subscriber ID Effective Phone Address T ype Group Dates [place]ICAID [place]ICA[place] [id number] 2020-Prese [address] [place] [address] Theodore Appiah Personal/Family Self 1985 [address]Home) [place] [address] BijalBodjudy Kwon Personal/Family Self 1985 [address]Home) [place] [address] BijalRosejudy Kwon Personal/Family Self 1985 [address]Home) [place] [address] BijalRosejudy Kwon Personal/Family Self 1985 [address] (Home) [place] [address] BijalBodbrandonn O Personal/Family Self 1985 [address] (Home) [place] [address] BijalRosejudy Kwon Personal/Family Self 1985 [address] (Home) [place] [address] BijalBodean O Personal/Family Self 1985 [address] (Home) [place] [address] Care Teams Spanish Teacher Relationship Specialty Start Date End Date Isai Gracia MD PCP - General 07/03/21 [address], [place] [id number]
--- OUTSIDE RECORDS SUMMARY | 2021-10-07 02:18 | XMS_ITS | Encounter Summary ---
:1985 Author Organization [facility] Address [address] [place] [address] Care Team Providers Name Role Phone Unavailable Primary Care Provider Unavailable Reason for Visit Reason Comments Follow-up Encounter Details Date Type Department Care Team Description 02/17/2021 Telemedicine [facility] Frantz Geronimo, As ymptomatic HIV Infectious Disease - DO infection, with no [facility] [address] [place] history of [address] HIV-related illness [facility], [facility] (Primary Dx) [address] [facility] [place] [address] (Wo rk) Social History Tobacco Use Types Packs/Day Years Used Date Never Assessed Sex Assigned at Date Recorded Male 10/07/2020 12:27 EDT documented as of this encounter Progress Notes Frantz Geronimo, DO - 02/17/2021 0930 EST I spent a total of 30 minutes on the date of this encounter meeting with the patient and reviewing documentation/coordinating care as described in the above note. No procedures were performed at the time of the visit. Division of Infectious Disease Follow up/Progress Note 02/11/21 11:30 TELEMEDICINE VIDEO VISIT Today's visit was provided through telemedicine video conferencing: The location of the patient : Home The location of the provider: Office The [...] in patient???s medical or mental health care. HPI:?Bijal??is a 35 y.o.??male who is here for HIV follow up. ??Patient diagnosed with HIV summer 2020 when he presented to an urgent care in [facility] to restart PrEP which he had been off ofsince Feb 2019. ??His last known HIV negative test dates back to summer 2019??per his report??while he was living??in [place]. ?His initial panel of labs collected 18 September 2020 shows an HIV genotype with no relevant mutations, his initial CD4 count Aug 2020 916, his initial viral load is 9563.?? Started on Biktarvy in October 2020. Follow up HIV VL 04 Dec 2020 73 and creat 1.1, ast 24, alt 40. Repeatlabs from 10 Feb 2021 CD4 1362, VL 72 ?? Please see initial eval note from September 2020 for back ground. Since starting Biktarvy in October 2020,pt with perfect adherence. He gets 30-day supply at a time and his mom assists him with his adherence. He has a great rapport with his primary care provider who is helping to manage his anxiety. 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 Has been doing some travel for work as well. Things are very stable at home. He enjoys living with his mom and helping around the house. ?? Review of Systems: 10-point review of systems is negative except as noted in the HPI. ?? Past Medical History: No past medical history on file. Anxiety GERD HIV dx 2020 ?? Past Surgical History:?? No past surgical history on file. Appdx Hemorrhoid surgery? No current outpatient medications on file. ?? Meds Zoloft (new in September 2020) Biktarvy Not on File ?? No HW Social History Tobacco:??smoking more 2nd to anxiety. Wants to try Wellbutrin. 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 Relationships / Living Situation:?Single, last sexual contact [place] (thinks [place] where he got infected) Apr 2020. ??MSM.?. ??Father recently 2020. Travel:Born in . ??Pt moved to [place] after highschool and has lived in [facility] for work. ??Works asa musician. ??Starting to work again??as the pandemic is improving. Living with mom. ?Plans to goback out on he road in a few more months. Making money via [employer] type work locally. Animal exposure:??No pets Food:??No raw milk Other comments:??Routine childhood vaccines as child in [place]. ?? Social History ? Socioeconomic History ??? Marital status: Not on [...] on file ?? Social Determinants of Health ? Financial Resource Strain: ??? Difficulty of Paying [...] Gatherings with Friends and Family: ??? Attends Confucianist Services: ??? Active Member of Clubs or Organizations: ??? Attends Club or Organization Meetings: ??? Marital Status:? Family history: Pertinent for??Uncle of AIDS 1989 ?? The Family History was reviewed and is non-contributory for a past history of infection or immunocompromised state ?? Physical Exam General: NAD, very pleasant ?? Assessment and Plan: ?? #) HIV -Newly diagnosed in??August 2020. ??Initial genotype August 2020 no relevant mutations.?Had been off prep since February 2019. ??Suspect he was infected in April 2020 timeframe. - Prior regimens include??N/A - Biktarvy started October 2020. Gets 30 days at a time. Has great supply. No missed. - Last CD4 count??18 September 2020 916, Jan 2021 1262 - Last HIV viral load??Nov 2020 Jan 72 - OI prophylaxis:??N/A - Compliance:??excellent - Sexual activity:??Not currently - G/C, RPR??states these were performed at primary care provider's office but we need to confirm this. - HBV/HCV??August 2020 hepatitis A total antibody negative, hepatitis B core antibody negative, Bit bydog 2018 time frame and got Td by report. - Dental needs to be addressed at next visit. - PCM is Dr Isai Hernandez at [facility]. -??Follow-up with us in 3 months. We will get another viral load at that time to make sure that he becomes < 20 with continued ART. ?? #) Health maintenance - Cholesterol:??No results found for: CHOL, HDL, LDLBASE, TRIG, CHOLHDL - Diabetes:??No results found for: HGBA1C - Colonoscopy:??Colonoscopy as a teenager while in [facility]. ??Unclear the findings. - Immunizations:??COVID July-August 2020. Needs booster now.? Prevnar/Flu vaccine 23 Dec 2020. Patient given pneumovax and meningitis today at clinic. We will need to address hepatitis A, hepatitis andHPV based at PCM's office. ?? 3)??Anxiety, much improved since he was started on Zoloft by his new PCM and pt happy with progress but my asked to switch to Wellbutrin as he thinks that will help him quit smoking. ?? It has been a pleasure seeing??Mr.??Bijal??in clinic today. ?? Frantz Geronimo DO Pager [phone] Infectious Diseases ? Currently employed:??No ?? Adherence counseling:?Yes ?? Linguistic services:?No ?? Patient with HIV (-) partner:??N/A ?? HIV (-) partner tested within the last 12 months:??N/A ?? Partner notification discussed:??Yes ?? Social History Social History ? Tobacco Use Smoking Status Not on file ? Smoking cessation discussed:?Yes ?? Seen by dentist in the past year.?No ?? Referred to dentist at this visit:?No ?? Housing:??Stable ?? HIV risk reduction counseling:??Yes? Screened for mental health:??Yes? Screened for substance abuse:??Yes? Current substance use (used more than once in the past 12 months):??none documented in this encounter Plan of Treatment Upcoming Encounters Date Type Specialty Care Team Description 10/13/2021 Telemedicine Infectious Disease Gabe Geronimo DO [address] [facility], [address] [place], [place] [phone] (Wo rk) documented as of this encounter Visit Diagnoses Diagnosis Asymptomatic HIV infection, with no hist ory of HIV-related illness (HCC) - Primary documented in this encounter
--- OUTSIDE RECORDS SUMMARY | 2021-10-07 02:18 | XMS_ITS | Encounter Summary ---
:1985 Author Organization [facility] Address [address] [place] [address] Care Team Providers Name Role Phone Isai Gracia MD Primary Care Provider Encounter Details Date Type Department Care Team Description 10/12/2020 Lab Requisition [facility] Outr Resulting Lab, Pathology & Laboratory Provider [facility] [address] [place] [address] Social History Tobacco Use Types Packs/Day Years Used Date Never Assessed Sex Assigned at Date Recorded Male 10/07/2020 12:27 EDT documented as of this encounter Plan of Treatment Upcoming Encounters Date Type Specialty Care Team Description 10/13/2021 Telemedicine Infectious Disease Gabe Geronimo, DO 111 [facility], [facility] [address] [place], [place] [phone] (Wo rk) documented as of this encounter Procedures Procedure Name Priority Date/Time Associated Diagnosis Comme nts COVID-19 TEST [facility] Today 10/12/2020 1:15 EDT LAB PCR COVID-19 TESTING Routine 10/12/2020 1:15 EDT Resu lts for this procedure are i n the results section. documented in this encounter Results COVID-19 TEST [facility] LAB PCR (10/12/2020 1:15 EDT) Specimen Swab - Entire nasopharynx (body structur e) Performing Organization Address City/State/ZIP Code Phon e Number [facility] [address] [place] [address] SERVICES COVID-19 TESTING (10/12/2020 1:15 EDT) COVID-19 rt-PCR Negative Negative [facility] MEDICAL Result Comment: [facility] This test has not been FDA c leared or approved. This test has been authorized by FDA under an EUA for use by authorized laboratories. This test has been authorized only for detection of nucleic acid fro SERVICES m 2019-nCoV, not for any oth er viruses or pathogens. This test is only authorized for the duration of the declaration that circumstances exist justifying the authorization of emergency use of in vitro d iagnostic tests for detectio n and/or diagnosis of 2019-nCoV under section 564(b)(1) of Act, 21 U.S.C ?? 360bbb-3(b) (1), unless the authorization is terminated or revoked sooner. Negative results do not prec lude 2019-nCoV infection and should not be used as the sole basis for treatment or other patient management decisions. Negative results must be combined with clinical observa tions, patient history, and epidemiological informatio n. Performed on the Lalinaher Fusion instrument Performing Lab Meally [facility] Lab [facility] SERVICES Specimen Swab Performing Organization Address City/State/ZIP Code Phon e Number [facility] [address] [place] [address] SERVICES documented in this encounter Visit Diagnoses Not on filedocumented in this encounter Care Teams Bobbin Inspector Relationship Specialty Start Date End Date Isai Gracia MD PCP - General 07/03/21 [address] [place], [place] [phone] documented as of this encounter
--- OUTSIDE RECORDS SUMMARY | 2021-10-07 02:18 | XMS_ITS | Encounter Summary ---
:1985 Author Organization [facility] Address [address] [place] [address] Care Team Providers Name Role Phone Isai Gracia MD Primary Care Provider Encounter Details Date Type Department Care Team Description 12/04/2020 Lab Requisition [facility] Outr Resulting Lab, Pathology & Laboratory Provider [facility] [address] [place] [address] Social History Tobacco Use Types Packs/Day Years Used Date Never Assessed Sex Assigned at Date Recorded Male 10/07/2020 12:27 EDT documented as of this encounter Plan of Treatment Upcoming Encounters Date Type Specialty Care Team Description 10/13/2021 Telemedicine Infectious Disease Gabe Geronimo, DO 111 [facility], [address] [place], [place] [phone] (Wo rk) documented as of this encounter Procedures Procedure Name Priority Date/Time Associated Comments Diagnosis HIV 1 RNA Routine 12/04/2020 11:35 Results for this QUANTITATION EDT procedure are i n the results section. documented in this encounter Results (ABNORMAL) HIV 1 RNA QUANTITATION (12/04/2020 11:35 EDT) HIV RNA Detected (A) Undetected [facility] Detection, Qual copies/mL LABORATORY SERVICES HIV 1 RNA Quant 73 (H) Undetected [facility] copies/mL LABORATORY SERVICES Specimen Blood - Venous blood (substance) Narrative [facility] LABORATORY SERVICES - 12/06/2020 13:45 EDT New platform in use 10/14/2020 The quantification range of this assay i s 20 IU/mL to 10,000,000 IU/mL. ??Testing was performed using the Earnest HIV test ([employer] with the earnest [id number] System. Performing Organization Address City/State/ZIP Code Phon e Number [facility] [address] [place] [address] SERVICES documented in this encounter Visit Diagnoses Not on filedocumented in this encounter Care Teams Retail Sales Associate Seasonal Relationship Specialty Start Date End Date Isai Gracia MD PCP - General 07/03/21 [address] [place], [place] [phone] documented as of this encounter
--- OUTSIDE RECORDS SUMMARY | 2021-10-07 02:18 | XMS_ITS | Encounter Summary ---
:1985 Author Organization [facility] Address [address] [place] [address] Care Team Providers Name Role Phone Isai Gracia MD Primary Care Provider Encounter Details Date Type Department Care Team Description 07/07/2021 Lab Requisition [facility] Outr Resulting Lab, Pathology & Laboratory Provider [facility] [address] [place] [address] Social History Tobacco Use Types Packs/Day Years Used Date Never Assessed Sex Assigned at Date Recorded Male 10/07/2020 12:27 EDT documented as of this encounter Plan of Treatment Upcoming Encounters Date Type Specialty Care Team Description 10/13/2021 Telemedicine Infectious Disease Gabe Geronimo, DO 111 [facility], [address] [place], [place] [phone] (Wo rk) documented as of this encounter Procedures Procedure Name Priority Date/Time Associated Comments Diagnosis HIV 1 RNA Routine 07/07/2021 13:40 Results for this QUANTITATION EDT procedure are i n the results section. documented in this encounter Results (ABNORMAL) HIV 1 RNA QUANTITATION (07/07/2021 13:40 EDT) HIV RNA Detected (A) Undetected [facility] Detection, Qual copies/mL LABORATORY SERVICES HIV 1 RNA Quant 52 (H) Undetected [facility] copies/mL LABORATORY SERVICES Specimen Blood - Venous blood (substance) Narrative [facility] LABORATORY SERVICES - 07/10/2021 11:07 EDT The quantification range of this assay i s 20 IU/mL to 10,000,000 IU/mL. ??Testing was performed using the Earnest HIV test ([employer] with the earnest [id number] System. Performing Organization Address City/State/ZIP Code Phon e Number [facility] [address] [place] [address] SERVICES documented in this encounter Visit Diagnoses Not on filedocumented in this encounter Care Teams Continuous Improvement Lead Relationship Specialty Start Date End Date Isai Gracia MD PCP - General 07/03/[address] [place], [place] [phone] documented as of this encounter
--- OUTSIDE RECORDS SUMMARY | 2021-10-07 02:18 | XMS_ITS | Encounter Summary ---
:1985 Author Organization [facility] Address [address] [place] [address] Care Team Providers Name Role Phone Unavailable Primary Care Provider Unavailable Reason for Visit Reason Comments Follow-up Encounter Details Date Type Department Care Team Description 10/16/2020 Telemedicine [facility] Frantz Geronimo, Jonah mptomatic HIV Infectious Disease - DO infection (HCC-CMS) [address] (Primary Dx) [address] [place] [address], [address] [place] [address] (Wo rk) Social History Tobacco Use Types Packs/Day Years Used Date Never Assessed Sex Assigned at Date Recorded Male 10/07/2020 12:27 EDT documented as of this encounter Progress Notes Frantz Geronimo, DO - 10/16/2020 1330 EDT I spent a total of 60 minutes on the date of this encounter meeting with the patient and reviewing documentation/coordinating care as described in the above note. No procedures were performed at the time of the visit. Division of Infectious Disease Follow up/Progress Note 10/15/20 14:54 TELEMEDICINE VIDEO VISIT Today's visit was provided [...] in patient???s medical or mental health care. INFECTIOUS DISEASE CLINIC VISIT Patient name: Theodore Appiah Today's date: 10/15/2020 Chief Complaint: HIV care HPI: Mr. Appiah is a 35 y.o. male who is here for his initial HIV evaluation via telehealth. Patient recently diagnosed with HIV when he presented to an urgent care in [facility] to restart PrEP. His last known HIV negative test dates back to summer 2019 per his report while he was living in [place]. His initial panel of labs collected 18 September 2020 shows an HIV genotype with no relevant mutations, his initial CD4 count is 916, his initial viral load is 9563. Not on ART yet. Pt developed long lasting URI symptoms in June 2020 with sore throat, NS, fevers and also had cellulitis in abdomen while living in [place]. Then came to [place] in July to visit family (dad had recently ) and has now moved in with is mom. Sx of URI improved in July. He went to urgent care in August to get back on PrEP when a HIV test was performed and was positive so pt referred to [facility]. Pt thinks he got infected in [place], Pt very well informed about HIV and had been on PrEP while living in [place] on and off since 2014 (only off for a about one month, two separate times) until he lost his insurance in Feb 2019 time, came off PrEP and soon after, moved from [place] to [place]. While he was on PrEP, patient admits to perfect adherence with both [place] and follow-up where he was getting HIV antibodies every 3 months. Seen in ER 4 days ago with GERD, treated with what sounds like PPI and his symptoms have improved. Otherwise, he currently feels well and denies nausea, vomiting or diarrhea. He has gained some weight due to the pandemic but hopes to get back in the gym soon. Patient seems to be adjusting to the diagnosis very well. Review of Systems: 10-point review of systems is negative except as noted in the HPI. Past Medical History: No past medical history on file. Anxiety GERD Past Surgical History: No past surgical history on file. Appdx Hemorrhoid surgery No current outpatient medications on file. 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 Relationships / Living Situation: Single, last sexual contact [place] (thinks that where he got infected)Apr 2020. MSM. Mom and sister are both aware of the diagnosis and are very supportive. Father passedaway recently. 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 Travel:Born in [facility]. Pt moved to [place] after highschool and has lived in [place] for work. 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 Plans to go back out on he road at some point. Animal exposure: No pets Food: No raw milk Other comments: Routine childhood vaccines as child in [place]. Social History Socioeconomic History ??? Marital status: Not on file Spouse name: Not on file ??? Number [...] Social History Narrative ??? Not on file Social Determinants of Health Financial Resource Strain: ??? Difficulty of Paying [...] Gatherings with Friends and Family: ??? Attends Cheondoism Services: ??? Active Member of Clubs or Organizations: ??? Attends Club or Organization Meetings: ??? Marital Status: Family history: Pertinent for Uncle of AIDS 1989 The Family History was reviewed and is non-contributory for a past history of infection or immunocompromised state Physical Exam General: NAD, very pleasant Assessment and Plan: #) HIV -Newly diagnosed in August 2020. Initial genotype August 2020 no relevant mutations. Had been off prep since February 2019. Suspect he was infected in April 2020 timeframe. - Prior regimens include N/A - Currently not on ART - Last CD4 count 18 September 2020 916 - Last HIV viral load 9563 - OI prophylaxis: N/A - Compliance: Seems like he will be an excellent patient with his ART - Sexual activity: Not currently - G/C, RPR states these were performed at primary care provider's office but we need to confirm this. - HBV/HCV August 2020 hepatitis A total antibody negative, hepatitis B core antibody negative, - Dental exam need to address at next visit. - PCM is Dr Gracia at [facility]. - Destiny will help connect patient with [facility] to help establish insurance. Once that is okay,will go ahead and prescribe Biktarvy. We will get viral load/chemistry panel 1 month after starting and then we will see patient in the November timeframe in clinic for follow-up. Patient seems like he will do very well with his HIV medications and adherence and is clearly well- informed. It sounds like he has an excellent psychosocial system at home. #) Health maintenance - Cholesterol: No results found for: CHOL, HDL, LDLBASE, TRIG, CHOLHDL - Diabetes: No results found for: HGBA1C - Colonoscopy: Colonoscopy as a teenager while in [facility]. Unclear the findings. - Immunizations: COVID July-August 2020. No flu vaccine. Destiny will try to get baseline vaccine recordsfrom PCM 3) GERD, much improved with the PPI 4) Anxiety, much improved since he was started on Zoloft by his new PCM. It has been a pleasure seeing Mr. Appiah in clinic today. Frantz Geronimo DO Pager [phone] Infectious Diseases Currently employed: No Adherence counseling: Yes Linguistic services: No Patient with HIV (-) partner: N/A HIV (-) partner tested within the last 12 months: N/A Partner notification discussed: Yes Social History Social History Tobacco Use Smoking Status Not on file Smoking cessation discussed: Yes Seen by dentist in the past year. No Referred to dentist at this visit: No Housing: Stable HIV risk reduction counseling: Yes Screened for mental health: Yes Screened for substance abuse: Yes Current substance use (used more than once in the past 12 months): none documented in this encounter Plan of Treatment Upcoming Encounters Date Type Specialty Care Team Description 10/13/2021 Telemedicine Infectious Disease Gabe Geronimo DO 111 [facility], [facility] [address] [place], [place] [phone] (Wo rk) documented as of this encounter Visit Diagnoses Diagnosis Symptomatic HIV infection (HCC-CMS) (HCC ) - Primary Human immunodeficiency virus [HIV] disea se documented in this encounter
--- OUTSIDE RECORDS SUMMARY | 2021-10-07 02:18 | XMS_ITS | Encounter Summary ---
:1985 Author Organization [facility] Address [address] [place] [address] Care Team Providers Name Role Phone Unavailable Primary Care Provider Unavailable Reason for Visit Reason Onset Date Comments Medications Refill 04/25/2021 Encounter Details Date Type Department Care Team Description 04/25/2021 Telephone [facility] Gabe Geronimo, DO Medications Refill Infectious Disease - [address] [place] [address], [address] [place], [place] [phone] [place] [phone] (Wo rk) Social History Tobacco Use Types Packs/Day Years Used Date Never Assessed Sex Assigned at Date Recorded Male 10/07/2020 12:27 EDT documented as of this encounter Ordered Prescriptions Prescription Sig Dispensed Refills Start Date End Date bictegravir-emtricitabine- Take 1 Tablet by 30 Tablet 11 06/202109/29/2021 tenofovir alafenamide mouth daily. (BIKTARVY) 50-200-25 mg per tablet documented in this encounter Miscellaneous Notes Telephone Encounter - Erika Rodriguez RN - 04/25/2021 1514 EST [facility] Encounter - Ludy Rios MA - 04/25/2021 1305 EST Pt states he will be out of his Biktarvy on Wednesday04/27/21. Asking that we send a refill to [facility] in [place], [place]. documented in this encounter Plan of Treatment Upcoming Encounters Date Type Specialty Care Team Description 10/13/2021 Telemedicine Infectious Disease Gabe Geronimo J, DO 111 [facility], [facility] [address] [place], [place] [phone] (Wo rk) documented as of this encounter Visit Diagnoses Not on filedocumented in this encounter
--- OUTSIDE RECORDS SUMMARY | 2021-10-07 02:18 | XMS_ITS | Encounter Summary ---
:1985 Author Organization [facility] Address [address] [place] [address] Care Team Providers Name Role Phone Unavailable Primary Care Provider Unavailable Reason for Visit Reason Comments Follow-up Encounter Details Date Type Department Care Team Description 05/05/2021 Telemedicine [facility] Frantz Geronimo, As ymptomatic HIV Infectious Disease - DO infection, with no [address] history of [address] HIV-related illness [facility], [facility] ([facility] (Primary Dx) [id number] [facility], [place] [address] (Wo rk) Social History Tobacco Use Types Packs/Day Years Used Date Never Assessed Sex Assigned at Date Recorded Male 10/07/2020 12:27 EDT documented as of this encounter Progress Notes Frantz Geronimo, DO - 05/05/2021 1000 EST I spent a total of 30 minutes on the date of this encounter meeting with the patient and reviewing documentation/coordinating care as described in the above note. No procedures were performed at the time of the visit. Division of Infectious Disease Follow up/Progress Note Telephone visit 05/05/21 10:24 The concept of ???Telemedicine?? has been described [...] in patient???s medical or mental health care. I spent a total of 30 minutes with Theodore Appiah today and 30 minutes of that time was spent in counseling and coordination of care as described in the progress note. HPI:?Bijal??is a 36 y.o.??male who is here for??HIV follow up. ??Patient ??diagnosed with HIV summer 2020??when he presented to an urgent care in [facility] to restart PrEP which he had been off of since Feb 2019. ??His last known HIV negative test dates back to summer 2019??per his report??while he was living??in [place]. ?His initial panel of labs collected 18 September 2020 shows an HIV genotype with no relevant mutations, his initial CD4 count??Aug 2020??916, his initial viral load is 9563.?Started on Biktarvy??in October 2020. ??Most recent labs Mar 2021 CD4 1312, VL 47 ?? Please see initial eval note from September 2020 for back ground. ??Since starting Biktarvy in October 2020, pt with perfect adherence.?He gets 30-day supply at a time and his mom assists him with his adherence. 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 Very busy, [place]. Things are very stable at home. He enjoys living with his mom and helping around the house. Last evaluation in HIV clinic January 2021, since then, doing very well. Energy back. ?? Review of Systems: 10-point review of systems is negative except as noted in the HPI. ?? Past Medical History: No past medical history on file. Anxiety GERD HIV dx 2020 ?? Past Surgical History:?? No past surgical history on file. Appdx Hemorrhoid surgery? No current outpatient medications on file. ?? Meds Wellbutrin zoloft Biktarvy ?? Not on File ?? No HW Social History Tobacco:??smoking better, down to < 1 PPW. 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 Relationships / Living Situation:?Single, last sexual contact [place] ([place]inks that where he got infected) Apr 2020. ??[place].?. ??Father 2020. Travel:Born in . ??Pt moved to [place] after highschool and has lived in [place] for work. 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 Animal exposure:??No pets Food:??No raw milk Other comments:??Routine childhood vaccines as child in [place]. ?? Social History ? Socioeconomic History ??? [...] Gatherings with Friends and Family: ??? Attends Judaism Services: ??? Active Member of Clubs or [...] April 2020 timeframe. - Prior regimens include??N/A -??Biktarvy started October 2020. ??Gets 30 days at a time. Has great supply. No missed. - Last CD4 count??Mar 2021 1312 - Last HIV viral load Mar 2021 47 - OI prophylaxis:??N/A - Compliance:??excellent - Sexual activity:??Not currently - G/C, RPR??states these were performed at primary care provider's office but we need to confirm this. - HBV/HCV??August 2020 hepatitis A total antibody negative, hepatitis B core antibody negative,?Bitby dog 2018 time frame and got Td by report. - PCM is ??Isai??David at [facility]. -??Follow-up with us in 6 months. ??We will get another viral load at that time to make sure that hebecomes < 20??with continued ART. ?? #) Health maintenance - Cholesterol:??No results found for: CHOL, HDL, LDLBASE, TRIG, CHOLHDL - Diabetes:??No results found for: HGBA1C - Colonoscopy:??Colonoscopy as a teenager while in [facility]. ??Unclear the findings. - Immunizations:??COVID July-August 2020.?? Got covid infection Mar 2021. Needs booster, June 2021. ?Prevnar/Flu vaccine 23 Dec 2020. Patient given pneumovax and meningitis #20 Jan 2021. We will need to address meningitis #2, hepatitis A, hepatitis B, HPV. Destiny will find these vaccines and call pt when ready. ?? 3)??Anxiety, much improved since he was started on Zoloft/Wellbutrin by PCM. ?? It has been a pleasure seeing??Mr.??Bijal??in clinic today. ?? Frantz Geronimo DO Pager [phone] Infectious Diseases ? Currently employed:??Yes ?? Adherence counseling:?Yes ?? Linguistic services:?No ?? [...] than once in the past 12 months):??none ?? documented in this encounter Plan of Treatment Upcoming Encounters Date Type Specialty Care Team Description 10/13/2021 Telemedicine Infectious Disease Gabe Geronimo DO 111 [facility], [address] [place], [place] [phone] (Wo rk) documented as of this encounter Visit Diagnoses Diagnosis Asymptomatic HIV infection, with no hist ory of HIV-related illness (HCC) - Primary documented in this encounter
--- OUTSIDE RECORDS SUMMARY | 2021-10-07 02:18 | XMS_ITS | Encounter Summary ---
:1985 Author Organization [facility] Address [address] [place] [address] Care Team Providers Name Role Phone Isai Gracia MD Primary Care Provider Encounter Details Date Type Department Care Team Description 04/15/2021 Lab Requisition [facility] Outr Resulting Lab, Pathology & Laboratory Provider [facility] [address] [place] [address] Social History Tobacco Use Types Packs/Day Years Used Date Never Assessed Sex Assigned at Date Recorded Male 10/07/2020 12:27 EDT documented as of this encounter Plan of Treatment Upcoming Encounters Date Type Specialty Care Team Description 10/13/2021 Telemedicine Infectious Disease Gabe Geronimo, DO [address] [facility], [address] [place], [place] [address] (Wo rk) documented as of this encounter Procedures Procedure Name Priority Date/Time Associated Comments Diagnosis T CELL SUBSETS Routine 04/15/2021 11:00 Results f or this EST procedure are i n the results section. HIV 1 RNA Routine 04/15/2021 11:00 Results for this QUANTITATION EST procedure are i n the results section. documented in this encounter Results (ABNORMAL) HIV 1 RNA QUANTITATION (04/15/2021 11:00 EST) HIV RNA Detected (A) Undetected [facility] Detection, Qual copies/mL LABORATORY SERVICES HIV 1 RNA Quant 47 (H) Undetected [facility] copies/mL LABORATORY SERVICES Specimen Blood - Venous blood (substance) Narrative [facility] LABORATORY SERVICES - 04/17/2021 13:07 EST New platform in use 10/14/2020 The quantification range of this assay i s 20 IU/mL to 10,000,000 IU/mL. ??Testing was performed using the Earnest HIV test ([employer] with the earnest 6800 System. Performing Organization Address City/[facility] Code Phon e Number [facility] LABORATORY [address] [place] [address] SERVICES T CELL SUBSETS (04/15/2021 11:00 EST) Pathologist Sig nature % CD3 82 56 - 84 % [facility] LABORATORY SERVICES % CD4 46 31 - 64 % [facility] LABORATORY SERVICES % CD8 36 9 - 39 % [facility] LABORATORY SERVICES Absolute CD3 2,371 840-2,669 Cells/uL [facility] LABORATORY SERVICES Absolute CD4 1,312 488-1,734 Cells/uL [facility] LABORATORY SERVICES Absolute CD8 1,044 154-1,097 Cells/uL [facility] LABORATORY SERVICES 06/27 Ratio 1.26 >=0.[address] [facility] LABORATORY SERVICES Specimen Blood - Venous blood (substance) Performing Organization Address City/[facility] Code Phon e Number [facility]ORATORY [address] [place] [address] SERVICES documented in this encounter Visit Diagnoses Not on filedocumented in this encounter Care Teams Wood Furniture Assembler Relationship Specialty Start Date End Date Isai Gracia MD PCP - General 07/03/21 [address] [place], [place] [id number] documented as of this encounter
--- OUTSIDE RECORDS SUMMARY | 2021-10-07 02:18 | XMS_ITS | Encounter Summary ---
:1985 Author Organization [facility] Address [address] [place] [address] Care Team Providers Name Role Phone Isai Gracia MD Primary Care Provider Reason for Visit Reason Comments Follow-up Encounter Details Date Type Department Care Team Description 07/14/2021 Telemedicine [facility] Frantz Geronimo, As ymptomatic HIV Infectious Disease - DO infection, with no [address] history of [address] HIV-related illness [facility] ([facility]) (Primary Dx) [address] [facility], [place] [phone] (Wo rk) Social History Tobacco Use Types Packs/Day Years Used Date Never Assessed Sex Assigned at Date Recorded Male 10/07/2020 12:27 EDT documented as of this encounter Progress Notes Frantz Geronimo, DO - 07/14/2021 1000 EDT I spent a total of 30 minutes on the date of this encounter meeting with the patient and reviewing documentation/coordinating care as described in the above note. No procedures were performed at the time of the visit. Division of Infectious Disease Follow up/Progress Note 07/11/21 10:03 TELEMEDICINE VIDEO VISIT Today's visit was provided through telemedicine video conferencing: The location of the patient : Workplace The location of the provider: Office The [...] in patient???s medical or mental health care. HPI:??Mr.??Bijal??is a 36 y.o.??male who is here for??HIV follow up. ??Patient ??diagnosed with HIV summer 2020??when he presented to an urgent care in [facility] to restart PrEP which he had been off of since Feb 2019. ??His last known HIV negative test dates back to summer 2019??per his report??while he was living??in [place]. ?His initial panel of labs collected 18 September 2020 shows an HIV genotype with no relevant mutations, his initial CD4 count??Aug 2020??916, his initial viral load is 9563.?Started on Biktarvy??in October 2020. ??Most recent labs Mar 2021 CD4??1312 and June 2021 VL??52 ?? Please see initial eval note from September 2020 for back ground. ??Since starting Biktarvy in October 2020, pt with perfect adherence.?He gets 30-day supply at a time. 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 Very busy, traveling to [place] and [place] mainly. ??Things are very stable at home. ??He enjoys livingwith his mom and helping around the house. ? Review of Systems: 10-point review of systems is negative except as noted in the HPI. ?? Past Medical History: No past medical history on file. Anxiety GERD HIV dx 2020 ?? Past Surgical History:?? No past surgical history on file. Appdx Hemorrhoid surgery? No current outpatient medications on file. ?? Meds Wellbutrin zoloft Biktarvy ?? Not on File ?? No HW Social History Tobacco:??Quit smoking Spring 2021. 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 Relationships / Living Situation:?Single, last sexual contact [place] (thinks that where he got infected) Apr 2020. ??MSM.?. ??Father 2020. Travel:Born in [facility]. ??Pt moved to [place] after highschool and has lived in [place] for work. 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 Animal exposure:??No pets Food:??No raw milk Other comments:??Routine childhood vaccines as child in [place]. ?? Social History ? Socioeconomic History ??? [...] Gatherings with Friends and Family: ??? Attends [employer] Services: ??? Active Member of Clubs or [...] October 2020. ??Gets 30 days at a time.?Has great supply. ??No missed. - Last CD4 count??Mar 2021 1312 - Last HIV viral load Mar 2021 47, June 2021 52, not sure what to make of the minute residual viremia. Adherence confirmed to be perfect. - OI prophylaxis:??N/A - Compliance:??excellent - Sexual activity:??Not currently - G/C, RPR??states these were performed at primary care provider's office but we need to confirm this. - HBV/HCV??August 2020 hepatitis A total antibody negative, hepatitis B core antibody negative,?Bitby dog 2018 time frame and got Td by report. - PCM is ??Isai??David at [facility]. -??Follow-up with us in??3??months. ??We will get another viral load at that time to make sure that he becomes <??20??with continued ART. ?? #) Health maintenance - Cholesterol:??No results found for: CHOL, HDL, LDLBASE, TRIG, CHOLHDL - Diabetes:??No results found for: HGBA1C - Colonoscopy:??Colonoscopy as a teenager while in [facility]. ??Unclear the findings. - Immunizations:??COVID July-August 2020.?Got covid infection Mar 2021. Needs booster now, June 2021. ?Prevnar/Flu vaccine 23 Dec 2020.?Patient given??pneumovax and meningitis #20 Jan 2021.??We will need to address meningitis #2, hepatitis A, hepatitis B, HPV. Pt on the road a lot so we haveasked him to touch bases with us when he is back in town in July 2021. ?? 3)??Anxiety, much improved since he was started on Zoloft/Wellbutrin by PCM. Seems to be OK. ?? It has been a pleasure seeing??Mr.??Bijal??in clinic today. ?? Frantz Geronimo DO Pager [phone] Infectious Diseases ? Currently employed:??Yes ?? Adherence [...] than once in the past 12 months):??none ? documented in this encounter Plan of Treatment Upcoming Encounters Date Type Specialty Care Team Description 10/13/2021 Telemedicine Infectious Disease Gabe Geronimo DO [address] [facility], [address] [place], [place] [phone] (Wo rk) documented as of this encounter Visit Diagnoses Diagnosis Asymptomatic HIV infection, with no hist ory of HIV-related illness (HCC) - Primary documented in this encounter Care Teams Pantry Steward/Stewardess Relationship Specialty Start Date End Date Isai Gracia MD PCP - General 07/03/21 [address] [place] [address] documented as of this encounter
--- OUTSIDE RECORDS SUMMARY | 2021-10-07 02:18 | XMS_ITS | Encounter Summary ---
:1985 Author Organization [facility] Address [address] [place] [address] Care Team Providers Name Role Phone Isai Gracia MD Primary Care Provider Encounter Details Date Type Department Care Team Description 09/03/2020 Lab Requisition [facility] Outr Resulting Lab, Pathology & Laboratory Provider [facility] [address] [place] [address] Social History Tobacco Use Types Packs/Day Years Used Date Never Assessed Sex Assigned at Date Recorded Male 10/07/2020 12:27 EDT documented as of this encounter Plan of Treatment Upcoming Encounters Date Type Specialty Care Team Description 10/13/2021 Telemedicine Infectious Disease Gabe Geronimo, DO [address] [facility], [address] [place], [place] [phone] (Wo rk) documented as of this encounter Procedures Procedure Name Priority Date/Time Associated Comments Diagnosis HIV 1 AND 2 AB Today 09/02/2020 15:23 Results f or this CONFIRMATION/DIFFERE EDT procedu re are in NTIATION the results section. HIV 1/2 ANTIGEN AND Routine 09/02/2020 15:23 Resu lts for this ANTIBODY, 4TH EDT procedure are in GENERATION the results section. documented in this encounter Results (ABNORMAL) HIV 1 AND 2 AB CONFIRMATION/DIFFERENTIATION (09/02/2020 15:23 EDT) HIV-1 Antibody Positive (A) Negative [facility] Confirm LABORATORY SERVICES HIV-1 Band(s) p31 (HIV-1 Shay) [facility] gp160 (HIV-1 Env) LABORATORY p24 (HIV-1 GAG) SERVICES gp41 (HIV-1 Env)Comment: Presence of HIV-1 antibodies is confirmed. HIV-2 Antibody Indeterminate Negative [facility] Confirm (A)Comment: Band LABORATORY pattern does not meet SERVICES the criteria for a Positive result. HIV-2 Band(s) gp140 (HIV-2 Env) [facility] LABORATORY SERVICES Specimen Blood - Venous blood (substance) Performing Organization Address City/[facility]/ZIP Code Phon e Number [facility]OR[facility] [address] [place] [address] SERVICES (ABNORMAL) HIV 1/2 ANTIGEN AND ANTIBODY, 4TH GENERATION (09/02/2020 15:23 EDT) HIV 1 and 2 Reactive (A) Negative [facility] Antibody/p24 Comment: [facility] Antigen, 4th Reactive for Anti-HIV1 and/o r Anti-HIV2. Refer to HIV 1 and 2 Ab Differentiation for final result and interpretation. HIV antibody result should be interpreted in the context of the patient's total clinical and laboratory information. SERVICES Generation Fourth Generation assay performed on the [employer]24a ur XPT. Specimen Blood - Venous blood (substance) Performing Organization Address City/[facility] Code Phon e Number [facility] [address] [place] [address] SERVICES documented in this encounter Visit Diagnoses Not on filedocumented in this encounter Care Teams Health Communications Specialist Relationship Specialty Start Date End Date Isai Gracia MD PCP - General 07/03/21 [facility] [place] [address] documented as of this encounter
--- OUTSIDE RECORDS SUMMARY | 2021-10-07 02:18 | XMS_ITS | Encounter Summary ---
:1985 Author Organization [facility] Address [address] [place] [address] Care Team Providers Name Role Phone Isai Gracia MD Primary Care Provider Reason for Visit Reason Onset Date Comments Medication Problem 09/29/2021 Encounter Details Date Type Department Care Team Description 09/29/2021 [facility]phone [facility] Medication Problem Infectious Disease - [address] [place] [address], [address], [address] [place], [place] [address] [place] [address] [phone] (Wo rk) Social History Tobacco Use Types Packs/Day Years Used Date Never Assessed Sex Assigned at Date Recorded Male 10/07/2020 12:27 EDT documented as of this encounter Ordered Prescriptions Prescription Sig Dispensed Refills Start Date End Date kdivadephzk-cxpgohrjshyrl-s Take 1 Tablet by 30 Tablet 5 enofovir alafenamide mouth daily. (BIKTARVY) 50-200-25 mg per tablet documented in this encounter Miscellaneous Notes Telephone Encounter - Lily Dawson RN - 09/29/2021 1627 EDT Called [facility] in [place]. They explained per Medicaid requirements, the RX can only be for 6 months, the extra refills would become void and a new RX would be needed. Electronically sent in a new refill for Biktarvy to [facility]. LM , notifying patient of this information. LILY DAWSON RN elephone Encounter - Kerry Bautista - 09/29/2021 9586 EDT Patient states that his Biktarvy prescription was supposed to be for 1 month with 11 refills, but the pharmacy is telling him that it is only for 5 refills (total of 6 months), and he is on his last refill now. Uses [facility] in [place]. Would like a call back at [phone]. documented in this encounter Plan of Treatment Upcoming Encounters Date Type Specialty Care Team Description 10/13/2021 Telemedicine Infectious Disease Gabe Geronimo, DO 111 [facility], [facility] [address] [place], [place] [address] (Wo rk) documented as of this encounter Visit Diagnoses Not on filedocumented in this encounter Discontinued Medications Medication Sig Discontinue Reason Start Date End Date bictegravir-emtricitabine Take 1 Tablet by Reorder 04/25/2021 09/29/2021 -tenofovir alafenamide mouth daily. (BIKTARVY) 50-200-25 mg per tablet documented as of this encounter Care Teams Senior Cytogenetic Technologist Relationship Specialty Start Date End Date Isai Gracia MD PCP - General 07/03/21 [address] [place] [address] documented as of this encounter
--- OUTSIDE RECORDS SUMMARY | 2021-10-07 02:18 | XMS_ITS | Encounter Summary ---
:1985 Author Organization [facility] Address [address] [place] [address] Care Team Providers Name Role Phone Isai Gracia MD Primary Care Provider Encounter Details Date Type Department Care Team Description 02/10/2021 Lab Requisition [facility] Outr Resulting Lab, Pathology & Laboratory Provider [facility] [address] [place] [address] Social History Tobacco Use Types Packs/Day Years Used Date Never Assessed Sex Assigned at Date Recorded Male 10/07/2020 12:27 EDT documented as of this encounter Plan of Treatment Upcoming Encounters Date Type Specialty Care Team Description 10/13/2021 Telemedicine Infectious Disease Gabe Geronimo, DO 111 [facility], [address] [place], [place] [address] (Wo rk) documented as of this encounter Procedures Procedure Name Priority Date/Time Associated Comments Diagnosis T CELL SUBSETS Routine 02/10/2021 11:18 Results f or this EST procedure are i n the results section. HIV 1 RNA Routine 02/10/2021 11:18 Results for this QUANTITATION EST procedure are i n the results section. documented in this encounter Results (ABNORMAL) HIV 1 RNA QUANTITATION (02/10/2021 11:18 EST) HIV RNA Detected (A) Undetected [facility] Detection, Qual copies/mL LABORATORY SERVICES HIV 1 RNA Quant 72 (H) Undetected [facility] copies/mL LABORATORY SERVICES Specimen Blood - Venous blood (substance) Narrative [facility] LABORATORY SERVICES - 02/14/2021 12:07 EST New platform in use 10/14/2020 The quantification range of this assay i s 20 IU/mL to 10,000,000 IU/mL. ??Testing was performed using the Earnest HIV test ([employer] with the earnest 6800 System. Performing Organization Address City/State/ZIP Code Phon e Number [facility] LABORATORY [address] [place] [address] SERVICES (ABNORMAL) T CELL SUBSETS (02/10/2021 11:18 EST) Pathologist Sig nature % CD3 82 56 - 84 % [facility] LABORATORY SERVICES % CD4 44 31 - 64 % [facility] LABORATORY SERVICES % CD8 38 9 - 39 % [facility] LABORATORY SERVICES Absolute CD3 2,542 840-2,669 Cells/uL [facility] LABORATORY SERVICES Absolute CD4 1,362 488-1,734 Cells/uL [facility] LABORATORY SERVICES Absolute CD8 1,185 (H) 154-1,097 Cells/uL [facility] LABORATORY SERVICES 06/27 Ratio 1.15 >=0.90 [facility] LABORATORY SERVICES Specimen Blood - Venous blood (substance) Performing Organization Address City/State/ZIP Code Phon e Number [facility]ORY [address] [place] [address] SERVICES documented in this encounter Visit Diagnoses Not on filedocumented in this encounter Care Teams Microsoft Access Developer Relationship Specialty Start Date End Date Isai Gracia MD PCP - General 07/03/21 [facility] [id number] documented as of this encounter
--- OUTSIDE RECORDS SUMMARY | 2021-10-07 02:18 | XMS_ITS | Encounter Summary ---
:1985 Author Organization [facility] Address [address] [place] [address] Care Team Providers Name Role Phone Isai Gracia MD Primary Care Provider Encounter Details Date Type Department Care Team Description 09/18/2020 Lab Requisition [facility] Outr Resulting Lab, Pathology & Laboratory Provider [facility] [address] [place] [address] Social History Tobacco Use Types Packs/Day Years Used Date Never Assessed Sex Assigned at Date Recorded Male 10/07/2020 12:27 EDT documented as of this encounter Plan of Treatment Upcoming Encounters Date Type Specialty Care Team Description 10/13/2021 Telemedicine Infectious Disease Gabe Geronimo, DO 111 [facility], [address] [place], [place] [phone] (Wo rk) documented as of this encounter Procedures Procedure Name Priority Date/Time Associated Comments Diagnosis T CELL SUBSETS Routine 09/18/2020 8:40 Results fo r this EDT procedure are i n the results section. HIV 1 RNA Routine 09/18/2020 8:40 Results for this QUANTITATION EDT procedure are i n the results section. documented in this encounter Results (ABNORMAL) HIV 1 RNA QUANTITATION (09/18/2020 8:40 EDT) HIV RNA Detected (A) Undetected [facility] Detection, Qual copies/mL LABORATORY SERVICES HIV 1 RNA Quant 9,563 (H) Undetected [facility] copies/mL LABORATORY SERVICES Specimen Blood - Venous blood (substance) Narrative [facility] LABORATORY SERVICES - 09/19/2020 14:43 EDT The quantification range of this assay i s 20 IU/mL to 10,000,000 IU/mL. ??Testing was performed on the LUZ Ampliprep/LUZ T aqMan HIV v2.0 ([employer] Performing Organization Address City/State/ZIP Code Phon e Number [facility] LABORATORY [address] [place] [address] SERVICES (ABNORMAL) T CELL SUBSETS (09/18/2020 8:40 EDT) Pathologist Sig nature % CD3 88 (H) 56 - 84 % [facility] LABORATORY SERVICES % CD4 34 31 - 64 % [facility] LABORATORY SERVICES % CD8 54 (H) 9 - 39 % [facility] LABORATORY SERVICES Absolute CD3 2,377 840-2,669 Cells/uL [facility] LABORATORY SERVICES Absolute CD4 916 488-1,734 Cells/uL [facility] LABORATORY SERVICES Absolute CD8 1,448 (H) 154-1,097 Cells/uL [facility] LABORATORY SERVICES 06/27 Ratio 0.63 (L) >=0.90 [facility] LABORATORY SERVICES Specimen Blood - Venous blood (substance) Performing Organization Address City/[facility]/ZIP Code Phon e Number [facility]OR[facility]ORY [address] [place] [address] SERVICES documented in this encounter Visit Diagnoses Not on filedocumented in this encounter Care Teams Sheet Ironworker Relationship Specialty Start Date End Date Isai Gracia MD PCP - General 07/03/21 [address] [place] [id number] documented as of this encounter
--- OUTSIDE RECORDS SUMMARY | 2021-10-07 02:19 | XMS_ITS | Encounter Summary ---
:1985 Author Organization [facility] Address [address] [place] [address] Care Team Providers Name Role Phone Isai Gracia MD Primary Care Provider Encounter Details Date Type Department Care Team Description 09/03/2020 Lab Requisition [facility] Outr Resulting Lab, Pathology & Laboratory Provider [facility] [address] [place] [address] Social History Tobacco Use Types Packs/Day Years Used Date Never Assessed Sex Assigned at Date Recorded Male 10/07/2020 12:27 EDT documented as of this encounter Plan of Treatment Upcoming Encounters Date Type Specialty Care Team Description 10/13/2021 Telemedicine Infectious Disease Gabe Geronimo, DO [address] [facility], [address] [place], [place] [address] (Wo rk) documented as of this encounter Procedures Procedure Name Priority Date/Time Associated Diagnosis Comme nts HEPATITIS C AB W Routine 09/02/2020 15:23 Results for this REFLEX TO HCV RNA EDT procedure are in BY PCR the results section. HEPATITIS A TOTAL Routine 09/02/2020 15:23 Result s for this ANTIBODY W REFLEX EDT procedure are in the results section. HEPATITIS B SURFACE Routine 09/02/2020 15:23 Resu lts for this ANTIBODY EDT procedure are i n the results section. HEPATITIS B SURFACE Routine 09/02/2020 15:23 Resu lts for this ANTIGEN EDT procedure are i n the results section. documented in this encounter Results HEPATITIS B SURFACE ANTIBODY (09/02/2020 15:23 EDT) Hep B Surface Ab, <3.1 See Note [facility] Quantitative Comment: mIU/mL [facility] Reference Range for Hep B Surface Ab, Quant: SERVICES Positive: >= 10.0 mIU/mL Negative: ??< 10.0 mIU/mL Patient is presumed to not be immune to infection with Hepatitis B Virus. Hep B Surface Ab, Negative See Note [facility] Qualitative Comment: [facility] Reference Range for Hep B Surface Ab, Qual: SERVICES Unvaccinated: ??Negative Vaccinated: ??Positive Specimen Blood - Venous blood (substance) Performing Organization Address [facility]/[place] [facility] [place] [facility] [address] [place] [address] SERVICES HEPATITIS B SURFACE ANTIGEN (09/02/2020 15:23 EDT) Pathologist Sig nature Hep B Surface Ag Negative Negative [facility] SERVICES Specimen Blood - Venous blood (substance) Performing Organization Address [facility] Phon e Number [facility] [address] [place] [address] SERVICES HEPATITIS C AB W REFLEX TO HCV RNA BY PCR (09/02/2020 15:23 EDT) Pathologist Sig nature Hep C Antibody Negative Negative [facility] SERVICES Specimen Blood - Venous blood (substance) Performing Organization Address [facility] Phon e Number [facility] [address] [place] [address] SERVICES HEPATITIS A TOTAL ANTIBODY W REFLEX (09/02/2020 15:23 EDT) Pathologist Sig nature Hepatitis A Antibody, Negative Negative [facility] SERVICES Specimen Blood - Venous blood (substance) Narrative [facility] - 09/04/2020 10:14 EDT The result of this assay can be falsely elevated (Positive) due to the consumption of Biotin. Performing Organization Address [facility]/ZIP Code Phon e Number [facility] [address] [place] [address] SERVICES documented in this encounter Visit Diagnoses Not on filedocumented in this encounter Care Teams [facility] Therapist Relationship Specialty Start Date End Date Isai Gracia MD PCP - General 07/03/21 [address] [place] [address] documented as of this encounter
[2021-10-07 13:06] LABS: Abs Immature Grans 0.01 10^3/uL (0.0-0.06); Absolute Basophil Count 0.06 10^3/uL (0.0-0.2); Absolute Eosinophil Count 0.12 10^3/uL (0.0-0.7); Absolute Lymphocyte Count 2.04 10^3/uL (1.2-3.4); Absolute Monocyte Count 0.38 10^3/uL (0.1-0.8); Absolute Neutrophil Count 4.04 10^3/uL (1.2-6.7); Basophils % 0.9; Eosinophils % 1.8; HCT 40.7 % (40.0-50.0); HGB 14.2 g/dL (13.5-17.5); Immature Grans % 0.2; Lymphocytes % 30.7; MCH 33.6 pg (27.0-33.0); MCHC 34.9 % (32.0-36.0); MCV 96 fL (80-95); MPV 9.1 fL (8.0-11.0); Monocytes % 5.7; Neutrophils % 60.7; Platelet Count 243 10^3/uL (130-400); RBC 4.22 10^6/uL (4.36-5.78); RDW 12.5 % (11.8-14.1); RDW-SD 44.2 fL; WBC 6.65 10^3/uL (4.4-10.8)
[2021-10-07 13:56] LABS: ALT 21 U/L (16-63); AST 23 U/L (15-37); Albumin 3.6 g/dL (3.4-5.0); Alkaline Phosphatase 78 U/L (46-116); Anion Gap 11.2 mmol/L (3-11); BUN 13 mg/dL (7-18); Bilirubin, Total 0.5 mg/dL (0.2-1.0); CO2 21.8 mmol/L (21.0-32.0); CREATININE 1.2 mg/dL (0.70-1.30); Calcium 8.9 mg/dL (8.5-10.1); Chloride 110 mmol/L (98-107); Glucose 103 mg/dL (74-106); Potassium 3.5 mmol/L (3.5-5.1); Sodium 143 mmol/L (136-145)
[2021-10-08 15:58] LABS: Absolute CD3 1827 Cells/uL (840-2,669); Absolute CD8 763 Cells/uL (154-1,097); CD3 80 % (56-84); CD4 47 % (31-64); CD8 33 % (9-39)
[2021-10-09 11:47] LABS: HIV 1 RNA Qualitative Detected copies/mL (Undetected); HIV 1 RNA Quantitative <20 copies/mL (Undetected)
== END 2021-10-07 02:18 | disposition home or self-care (01) ==
LOC: LBO 02:17
PROVIDERS: PCP Family Medicine; Visit Provider Internal Medicine Infectious Disease
DX: B20 Human immunodeficiency virus [HIV] disease (principal); Z79.899 Other long term (current) drug therapy
CPT/HCPCS: 36415; 80053; 87536; 85025; 86359; 86360

== ENCOUNTER 2021-10-13 14:29 | Outpatient (CLI) | payer MEDICAID, SELFPAY ==
--- NOTE | 2021-10-13 14:33 | W.CCNOTE ---
[facility] Note Note: Theodore is here today for follow up for immunizations and to discuss blood work. He has been traveling for work and missed a few appointments for immunizations. He has a Zoom tele-health visit with Dr. Geronimo today and it was arranged for him to come into the office here for Weight, Vital Signs, a brief physical and the immunizations. He discussed that he quit smoking and gained a lot of weight. He is now feeling much more energetic and has a employment trainer who is helping him with physical fitness and diet. He was advised to not look at the scale for 3 weeks and does not want to know his weight. He has been taking the Biktarvy daily without fail. he has refills now for at least 6 months. He ran out of the Sertraline RXd by his PCP, Dr. Gracia, and says he can feel much more irritable and anxious. He will be calling the PCP office to request a new RX. Denies SI/HI. ROS: Weight gain after quitting smoking. Denies fever, chills, night sweats, febrile illness recently or now. Denies URI symptoms, N/V/D and has not had a rash. Energy level is now good and has been for about a month - Better than it has been in 1 1/2 years. Sleep is ok. Some junk food on the road but diet is better. No ETOH, Drugs or tobacco Safe sex with one partner No other changes OBJ: VS: WT 234#, HT 5'10, P- 82, R- 14, BP- 140/76 AINAD Non icteric Lungs clear CC: RRR, MCRG No edema Psych: Mildly anxious, Affect: Normal, Speech clear, coherent w normal pressure Lab work excellent with a VL undetectable and a CD4 count of 1070. Kidney and Liver function normal Immunizations given: Hepatitis A&B #1: [employer] Lot # [id number], exp: 03/22/22 IM RA Menactra #1: [employer] Lot # [id number] Exp: 12/2021 A/P HIV, (B20); high risk gasket former medication (Z78.899) Immunizatio #2 Hep A&B scheduled for the end of October and the Menactra #2 will be given either in 2 months or at his next clinic/MD visit here in 6 months Destiny Jhaveri NP
== END 2021-10-13 14:30 | disposition home or self-care (01) ==
LOC: CCC 14:30
PROVIDERS: PCP Family Medicine; Visit Provider Nurse Practitioner Family
DX: Z79.899 Other long term (current) drug therapy (principal); B20 Human immunodeficiency virus [HIV] disease
CPT/HCPCS: 90472; 90636; 99213

== ENCOUNTER 2022-05-01 01:53 | Outpatient (CLI) | payer MEDICAID, SELFPAY ==
[2022-05-01 14:50] LABS: Abs Immature Grans 0.02 10^3/uL (0.0-0.06); Absolute Basophil Count 0.09 10^3/uL (0.0-0.2); Absolute Eosinophil Count 0.26 10^3/uL (0.0-0.7); Absolute Monocyte Count 0.85 10^3/uL (0.1-0.8); Basophils % 1.2; Eosinophils % 3.4; HCT 44.9 % (40.0-50.0); HGB 15.6 g/dL (13.5-17.5); Immature Grans % 0.3; Lymphocytes % 42.7; MCH 34.1 pg (27.0-33.0); MCHC 34.7 % (32.0-36.0); MCV 98 fL (80-95); MPV 8.7 fL (8.0-11.0); Neutrophils % 41.4; Platelet Count 266 10^3/uL (130-400); RBC 4.58 10^6/uL (4.36-5.78); RDW 12.8 % (11.8-14.1); RDW-SD 45.5 fL; WBC 7.72 10^3/uL (4.4-10.8)
[2022-05-01 15:42] LABS: ALT 17 U/L (16-63); AST 21 U/L (15-37); Alkaline Phosphatase 83 U/L (46-116); Anion Gap 6.3 mmol/L (3-11); BUN 12 mg/dL (7-18); Bilirubin, Total 0.4 mg/dL (0.2-1.0); CO2 28.7 mmol/L (21.0-32.0); CREATININE 1.1 mg/dL (0.70-1.30); Calcium 9.5 mg/dL (8.5-10.1); Chloride 108 mmol/L (98-107); Estimated GFR 88.12 (mL/min/1.73m2); Glucose 89 mg/dL (74-106); Potassium 3.8 mmol/L (3.5-5.1); Sodium 143 mmol/L (136-145); Total Protein 7.7 g/dL (6.4-8.2)
[2022-05-04 10:32] LABS: 4/8 Ratio 1.27 (>=0.90); Absolute CD3 2703 Cells/uL (840-2669); Absolute CD8 1200 Cells/uL (154-1097); CD3 78 % (56-84); CD4 44 % (31-64); CD8 35 % (9-39)
[2022-05-04 13:38] LABS: HIV 1 RNA Qualitative Undetected copies/mL (Undetected)
== END 2022-05-01 01:54 | disposition home or self-care (01) ==
LOC: LBO 01:53
PROVIDERS: PCP Family Medicine; Visit Provider Nurse Practitioner Family
DX: B20 Human immunodeficiency virus [HIV] disease (principal); Z79.899 Other long term (current) drug therapy
CPT/HCPCS: 36415; 80053; 87536; 85025; 86359; 86360

== ENCOUNTER 2022-06-30 02:03 | Outpatient (CLI) | payer MEDICAID, SELFPAY ==
[2022-07-01 16:19] LABS: Myeloperoxidase Ab IgG <0.2 U; Proteinase 3 Ab (PR3) <0.2 U
[2022-07-01 17:58] LABS: Angiotensin Converting Enzyme 14 U/L (16 - 85)
== END 2022-06-30 02:04 | disposition home or self-care (01) ==
LOC: LBO 02:03
PROVIDERS: PCP Family Medicine; Visit Provider Registered Nurse Maternal Newborn
DX: H65.93 Unspecified nonsuppurative otitis media, bilateral (principal)
CPT/HCPCS: 36415; 82164; 83516

== ENCOUNTER 2022-08-06 01:18 | Outpatient (CLI) | payer MEDICAID, SELFPAY ==
--- NOTE | 2022-08-06 07:30 | DI.MRI_ITS ---
Exam(s) MR IAC BRAIN WO/W EXAM: MR IAC BRAIN WO/W CLINICAL HISTORY: Asymmetrical sensorineural hearing loss.recurr otitis media.h90.3,h65.93. TECHNIQUE: Multiplanar multisequence MRI of the brain and internal auditory canals was performed. CONTRAST MATERIAL: IV Contrast: 20 mL of Dotarem contrast administered. COMPARISON: No exams were available for comparison FINDINGS: VENTRICLES AND EXTRA AXIAL SPACES: Normal in size and morphology for the patient's age. HEMORRHAGE: None. CEREBRAL PARENCHYMA: No focus of restricted diffusion to suggest acute infarct. No space-occupying le daniel identified. MIDLINE SHIFT: None. BRAINSTEM/CEREBELLUM: Normal. CALVARIUM: Normal. ENHANCEMENT: No suspicious enhancement identified. VISUALIZED PARANASAL SINUSES/MASTOIDS: There is fluid seen in the right mastoid air cells. The remai ramona visualized paranasal sinuses and left mastoid air cells are all clear. BEAVER OF AGUIRRE: Normal flow void. PITUITARY GLAND: Unremarkable. IAC/CP ANGLE: The internal auditory canals are within normal limits. The cerebellar pontine angles ar e unremarkable. No enhancing lesions are seen. Visualized portion of the facial nerves appear within normal limits. OTHER FINDINGS: None. IMPRESSION: 1. Unremarkable MRI of the brain and internal auditory canals. 2. Right mastoiditis. DATA REPOSITORY:
[2022-08-06] MEDS: Normal Saline Flush 10 ML SYR IJ (08:40)
[2022-08-06] MEDS: Gadoterate meglumine 20 ML VIAL IVP (08:40)
== END 2022-08-06 01:38 ==
PROVIDERS: PCP Family Medicine; Visit Provider Registered Nurse Maternal Newborn
DX: H90.3 Sensorineural hearing loss, bilateral; H70.91 Unspecified mastoiditis, right ear
CPT/HCPCS: 70553

== ENCOUNTER 2022-11-25 04:03 | Outpatient (CLI) | payer MEDICAID, SELFPAY ==
[2022-11-25 13:39] LABS: Abs Immature Grans 0.02 10^3/uL (0.0-0.06); Absolute Basophil Count 0.09 10^3/uL (0.0-0.2); Absolute Eosinophil Count 0.21 10^3/uL (0.0-0.7); Absolute Lymphocyte Count 2.59 10^3/uL (1.2-3.4); Absolute Monocyte Count 0.83 10^3/uL (0.1-0.8); Absolute Neutrophil Count 2.94 10^3/uL (1.2-6.7); Basophils % 1.3; Eosinophils % 3.1; HCT 46.1 % (40.0-50.0); HGB 16.1 g/dL (13.5-17.5); Immature Grans % 0.3; Lymphocytes % 38.8; MCH 33.8 pg (27.0-33.0); MCHC 34.9 % (32.0-36.0); MCV 97 fL (80-95); MPV 8.9 fL (8.0-11.0); Monocytes % 12.4; Neutrophils % 44.1; Platelet Count 259 10^3/uL (130-400); RBC 4.77 10^6/uL (4.36-5.78); RDW 12.2 % (11.8-14.1); RDW-SD 43.6 fL; WBC 6.68 10^3/uL (4.4-10.8)
[2022-11-25 14:16] LABS: ALT 21 U/L (16-63); AST 20 U/L (15-37); Albumin 3.7 g/dL (3.4-5.0); Alkaline Phosphatase 88 U/L (46-116); Anion Gap 8.7 mmol/L (3-11); BUN 13 mg/dL (7-18); Bilirubin, Total 0.5 mg/dL (0.2-1.0); CO2 22.3 mmol/L (21.0-32.0); CREATININE 1.1 mg/dL (0.70-1.30); Calcium 9.5 mg/dL (8.5-10.1); Chloride 106 mmol/L (98-107); Estimated GFR 88.12 (mL/min/1.73m2); Glucose 94 mg/dL (74-106); Potassium 4.2 mmol/L (3.5-5.1); Sodium 137 mmol/L (136-145); Total Protein 7.4 g/dL (6.4-8.2)
[2022-11-26 12:18] LABS: HIV 1 RNA Qualitative Detected copies/mL (Undetected); HIV 1 RNA Quantitative <20 copies/mL (Undetected)
[2022-11-26 16:59] LABS: 4/8 Ratio 1.27 (>=0.90); Absolute CD3 2301 Cells/uL (840-2669); Absolute CD8 1018 Cells/uL (154-1097); CD3 80 % (56-84); CD4 45 % (31-64); CD8 35 % (9-39)
== END 2022-11-25 04:04 | disposition home or self-care (01) ==
LOC: LBO 04:03
PROVIDERS: PCP Family Medicine; Visit Provider Nurse Practitioner Family
DX: B20 Human immunodeficiency virus [HIV] disease (principal); Z79.899 Other long term (current) drug therapy
CPT/HCPCS: 36415; 80053; 87536; 85025; 86359; 86360

== ENCOUNTER 2023-01-26 14:19 | Emergency (ER) | payer MEDICAID, SELFPAY ==
[2023-01-26] VITALS (14 sets, daily range): BP systolic 124–166; BP diastolic 74–119; PULSE 64–94; RESP 12–27; TEMP 36.4; O2SAT 92–97
--- NOTE | 2023-01-26 14:30 | DI.CT_ITS ---
Exam(s) CT ABDOMEN PELVIS W EXAM: CT ABDOMEN PELVIS W CLINICAL HISTORY: abdominal pain, acute onset, feels like pressure. TECHNIQUE: Imaging Protocol: Axial computed tomography images with coronal and sagittal reformatted images were created and reviewed CONTRAST MATERIAL: Intravenous: Omnipaque-350 100cc Oral: None COMPARISON: CT CT CHEST PE CTA from 10/12/2020 FINDINGS: VISUALIZED LUNG BASES: Small nodular density in the right lower lobe is unchanged from prior CT scan of 10/12/2020 and therefore most probably benign. There are increased dependent markings in both jo-ann g bases noted. There are no pleural effusions.. ABDOMEN: There is no ascites. LIVER: There are no focal hepatic lesions evident. No dilated intrahepatic ducts. GALLBLADDER/BILIARY: No obvious gallbladder pathology. CBD is not dilated. PANCREAS: No evidence of pancreatic mass nor dilatation of the pancreatic duct. SPLEEN: Spleen is not enlarged. No obvious intrasplenic lesions. Splenic and portal veins are paten t. ADRENALS: There are no significant adrenal masses. KIDNEYS:No cysts evident. No solid renal masses. No calculi nor hydronephrosis.. ABDOMINAL AORTA: Abdominal aorta is not enlarged. LYMPH NODES:There is a slightly enlarged lymph node in the erik hepatis measuring 1.5 by 1.1 cm coug h this just lateral to the CBD and below the caudate lobe. No other prominent retroperitoneal lymph nodes although there are few slightly prominent para-aortic lymph nodes noted below the level of the left renal vein, these measuring less than 1 cm. There is no adenopathy along the iliac chains dista l to the aortic bifurcation and there is no significant inguinal adenopathy. ABDOMINAL WALL: No evidence of significant anterior abdominal wall nor inguinal hernia. GI: There is no evidence of bowel obstruction, free air, nor abscess. However, there appears to be a none fat halo sign throughout the collapsed colon. This may reflect c hronic inflammatory bowel disease. The appendix is surgically absent. There is also an element of f at halo sign in the distal ileum. PELVIS: GI: Appendix surgically absent.No evidence of sigmoid diverticulitis. LYMPH NODES: There is no intrapelvic nor inguinal adenopathy. REPRODUCTIVE: Prostate not enlarged. No vesicles unremarkable. URINARY BLADDER: No calculi nor obvious masses evident OSSEOUS: No fractures nor significant osseous lesions. IMPRESSION: 1. There is fat halo sign throughout the length of the colon as well as in the terminal ileum. This may represent sequelae of chronic inflammatory bowel disease such as Crohn's or ulcerative colitis fo r combination there of. The colon is collapsed. There is no evidence of bowel obstruction. 2. Mildly enlarged retroperitoneal and para-aortic lymph nodes. The largest measures 15 x 11 mm and is located just lateral to the CBD. 3. Small benign-appearing nodular density in the right lower lobe is unchanged from CT scan of September 20 and therefore most probably benign. RADIATION DOSE DELIVERED: Total DLP DATA REPOSITORY: All CT scans at this facility are submitted to the National Radiology Data Registry (NRDR) Dose Index Registry (DIR) with the [employer] (ACR). RADIATION OPTIMIZATION: All CT scans at this facility use at least one of these dose optimization te chniques: automated exposure control; mA and/or kV adjustment per patient size (includes targeted exa ms where dose is matched to clinical indication); or iterative reconstruction.
[2023-01-26] MEDS: HYDROmorphone 2 MG/ML SYR 1 MG IVP (14:39)
[2023-01-26 14:56] LABS: Abs Immature Grans 0.01 10^3/uL (0.0-0.06); Absolute Basophil Count 0.07 10^3/uL (0.0-0.2); Absolute Lymphocyte Count 2.35 10^3/uL (1.2-3.4); Absolute Monocyte Count 0.63 10^3/uL (0.1-0.8); Absolute Neutrophil Count 4.48 10^3/uL (1.2-6.7); Basophils % 0.9; Eosinophils % 1.3; HCT 41.8 % (40.0-50.0); Immature Grans % 0.1; Lymphocytes % 30.8; MCH 34.2 pg (27.0-33.0); MCHC 35.9 % (32.0-36.0); MCV 95 fL (80-95); MPV 8.9 fL (8.0-11.0); Monocytes % 8.2; Neutrophils % 58.7; Platelet Count 259 10^3/uL (130-400); RBC 4.39 10^6/uL (4.36-5.78); RDW 12.5 % (11.8-14.1); RDW-SD 43.7 fL; WBC 7.64 10^3/uL (4.4-10.8)
--- NOTE | 2023-01-26 14:56 | W.ED.GENAD ---
Discharge Plan Disposition Patient Disposition: Home Condition: Improving Discharge Details Clinical Impression: Inflammatory bowel disease Primary Care Provider: Isai Gracia ED Provider: Nilsa Hernandez Home Meds and New Rx's Prescriptions: Continued Biktarvy 50-200-25 mg tablet 1 tab PO DAILY bupropion HCl [Wellbutrin SR] 150 mg Tablet Sustained-Release 12 Hr PO sertraline [Zoloft] 50 mg Tablet 50 mg PO DAILY Patient Comments: Theodore stopped this medication in October due to fatigue - PCP aware. sgt pantoprazole 40 mg tablet,delayed release (DR/EC) 40 mg PO DAILY Qty: 30 0RF Discharge Instructions Instructions: Dehydration (ED), Enteritis (ED) Additional Instructions: The CT shows some inflammatory bowel disease. He also has some inflamed lymph nodes. Please follow-up with your primary care to discuss the CT results. It appears you are also dehydrated. Please increase oral fluids over the next few days. Follow up with primary care provider in 3-5 days. Return to ED sooner if any worsening pain, fever, vomiting blood in your stool or concerns. Increase oral fluids. Please take Tylenol or Ibuprofen with food every 4-6 hours as needed for pain and swelling. Referrals: Isai Gracia [Primary Care Provider] - 3 days Discharge Data Discharge Date/Time-TO BE ENTERED AT DEPARTURE: 01/26/23 17:18 Medical Decision Making <REJI Ariza - Last Filed: 01/28/23 19:44> 37-year-old male presenting in acute distress, pacing around room, no CVA tenderness, no midline cervical, thoracic, or lumbar tenderness, no upper abdominal tenderness, mild suprapubic tenderness, no rebound or guarding, afebrile and nontoxic, mildly hypertensive Distal pulses intact, strength and sensation intact distally, bladder scan was ordered, 0, I did consider cauda equina syndrome, however this presentation is likely not consistent with this diagnosis, rectal tone intact, no saddle anesthesia appreciated on my clinical exam, strength and sensation intact to all 4 extremities, DTRs intact bilateral lower extremities, neurovascularly intact, specifically no lumbar spine tenderness, will order CT abdomen and pelvis for additional evaluation, labs, 1 mg of IV Dilaudid, IV placement, urinalysis Patient appears dehydrated, creatinine 1.4 gap of 12.8, BUN of 28, CO2 of 19, just recently started working out and yesterday actually worked out for 4 hours is unusual for him LR ordered, repeat Dilaudid as needed, pending CT abdomen and pelvis and urinalysis, suspect patient has a urinary tract infection as he had some urinary frequency endorses in the morning Mild elevation in CPK, 316, IV hydration supplied for likely dehydration and without evidence of rhabdomyolysis care transitioned to [place] pending 2 liters fluid, ct, f/u regarding hematuria <Nilsa Hernandez NP - Last Filed: 01/26/23 17:27> Medical Records Medical records narrative: 1606: SJ: Care assumed from provider (REJI Ariza) Please see their initial HPI, PE, and documentation. Discussed patient details and case and pending workup and disposition. Patient is hemodynamically stable, and alert and oriented. At the time of signout awaiting CT result. Patient is a 37-year-old HIV-positive male who presented with severe flank pain difficulty urinating. Labs show elevated BUN/creatinine and signs of dehydration slightly increased creatinine kinase at 316 urinalysis shows 80 ketones large blood small bilirubin and 20-50 RBCs no leukocytes no nitrites. CT shows signs of inflammatory bowel disease see results below. I will have patient follow-up with PCP regarding these results increase oral fluids. No evidence of kidney stones at this time. Upon patient reevaluation he reports feeling much better than when he first arrived he has received approximately 500 cc normal saline I did instruct him to get the rest of his fluids. Discussed the CT results with him he verbalizes understanding. I did discuss follow-up with PCP to discuss possible inflammatory bowel disease. Discussed home care and strict return instructions. This text was generated using Cocodotation system, please disregard any oddities of phrase or misspellings. Imaging Data Radiologic Study: Imaging: CT Scan Radiologist's impression: FINDINGS: VISUALIZED LUNG BASES: Small nodular density in the right lower lobe is unchanged from prior CT scan of 10/12/2020 and therefore most probably benign. There are increased dependent markings in both lung bases noted. There are no pleural effusions.. ABDOMEN: There is no ascites. LIVER: There are no focal hepatic lesions evident. No dilated intrahepatic ducts. GALLBLADDER/BILIARY: No obvious gallbladder pathology. CBD is not dilated. PANCREAS: No evidence of pancreatic mass nor dilatation of the pancreatic duct. SPLEEN: Spleen is not enlarged. No obvious intrasplenic lesions. Splenic and portal veins are patent. ADRENALS: There are no significant adrenal masses. KIDNEYS:No cysts evident. No solid renal masses. No calculi nor hydronephrosis.. ABDOMINAL AORTA: Abdominal aorta is not enlarged. LYMPH NODES:There is a slightly enlarged lymph node in the erik hepatis measuring 1.5 by 1.1 cm cough this just lateral to the CBD and below the caudate lobe. No other prominent retroperitoneal lymph nodes although there are few slightly prominent para-aortic lymph nodes noted below the level of the left renal vein, these measuring less than 1 cm. There is no adenopathy along the iliac chains distal to the aortic bifurcation and there is no significant inguinal adenopathy. ABDOMINAL WALL: No evidence of significant anterior abdominal wall nor inguinal hernia. GI: There is no evidence of bowel obstruction, free air, nor abscess. However, there appears to be a none fat halo sign throughout the collapsed colon. This may reflect chronic inflammatory bowel disease. The appendix is surgically absent. There is also an element of fat halo sign in the distal ileum. PELVIS: GI: Appendix surgically absent.No evidence of sigmoid diverticulitis. LYMPH NODES: There is no intrapelvic nor inguinal adenopathy. REPRODUCTIVE: Prostate not enlarged. No vesicles unremarkable. URINARY BLADDER: No calculi nor obvious masses evident OSSEOUS: No fractures nor significant osseous lesions. IMPRESSION: 1. There is fat halo sign throughout the length of the colon as well as in the terminal ileum. This may represent sequelae of chronic inflammatory bowel disease such as Crohn's or ulcerative colitis for combination there of. The colon is collapsed. There is no evidence of bowel obstruction. 2. Mildly enlarged retroperitoneal and para-aortic lymph nodes. The largest measures 15 x 11 mm and is located just lateral to the CBD. 3. Small benign-appearing nodular density in the right lower lobe is unchanged from CT scan of September 2020 and therefore most probably benign. Lab Data Lab results reviewed: Yes I reviewed the patient's lab results. Labs: Laboratory Tests Range/Units 01/26/23 01/26/23 01/26/23 14:40 14:40 15:15 WBC (4.4-10.8) 10^3/uL 7.64 RBC (4.36-5.78) 10^6/uL 4.39 Hgb (13.5-17.5) g/dL 15.0 Hct (40.0-50.0) % 41.8 MCV (80-95) fL 95 MCH (27.0-33.0) pg 34.2 H MCHC (32.0-36.0) % 35.9 RDW (11.8-14.1) % 12.5 Plt Count (130-400) 10^3/uL 259 MPV (8.0-11.0) fL 8.9 Immature Gran % 0.1 Neutrophils % 58.7 Lymphocytes % 30.8 Monocytes % 8.2 Eosinophils % 1.3 Basophils % 0.9 Nucleated RBC % (0.0-0.3) % 0.0 Absolute Neutrophils (1.2-6.7) 10^3/uL 4.48 Absolute Lymphocytes (1.2-3.4) 10^3/uL 2.35 Absolute Monocytes (0.1-0.8) 10^3/uL 0.63 Absolute Eosinophils (0.0-0.7) 10^3/uL 0.10 Absolute Basophils (0.0-0.2) 10^3/uL 0.07 ESR (0-15) mm/hr 15 Sodium (136-145) mmol/L 136 Potassium (3.5-5.1) mmol/L 3.6 Chloride (98-107) mmol/L 104 Carbon Dioxide (21.0-32.0) mmol/L 19.2 L Anion Gap (3-11) mmol/L 12.8 H BUN (7-18) mg/dL 20 H Creatinine (0.70-1.30) mg/dL 1.4 H Est GFR (CKD-EPI 2020) (mL/min/1.73m2) 65.98 Glucose (74-106) mg/dL 123 H Calcium (8.5-10.1) mg/dL 9.5 Total Bilirubin (0.2-1.0) mg/dL 0.7 AST (15-37) U/L 30 ALT (16-63) U/L 21 Alkaline Phosphatase (46-116) U/L 83 Creatine Kinase (39-308) U/L C-Reactive Protein (0.0-0.3) mg/dL 0.74 H Total Protein (6.4-8.2) g/dL 7.7 Albumin (3.4-5.0) g/dL 4.2 Lipase (16-77) U/L 28 Cancelled Urine Color (Yellow) Yellow Urine Clarity (Clear) Clear Urine pH (5-8) 5.0 Ur Specific [place] (1.005-1.025) >= 1.030 H Urine Protein (Negative) mg/dL 30 H Urine Ketones (Negative) mg/dL 80 H Urine Blood (Negative) Large H Urine Nitrite (Negative) Negative Urine Bilirubin (Negative) Small H Urine Urobilinogen (Up to 0.2) mg/dL 0.2 Ur Leukocyte Esterase (Negative) Negative Urine RBC (0-2) HPF 20-50 H Urine WBC (0-5) HPF 0-2 Ur Epithelial Cells (Negative) HPF Rare Urine Crystals (Negative) HPF Negative Urine Bacteria (Negative) HPF Negative Urine Mucus (Negative) Heavy Ur Culture Indicated? No Urine Glucose (Negative) mg/dL Negative Range/Units 01/26/23 15:20 WBC (4.4-10.8) 10^3/uL RBC (4.36-5.78) 10^6/uL Hgb (13.5-17.5) g/dL Hct (40.0-50.0) % MCV (80-95) fL MCH (27.0-33.0) pg MCHC (32.0-36.0) % RDW (11.8-14.1) % Plt Count (130-400) 10^3/uL MPV (8.0-11.0) fL Immature Gran % Neutrophils % Lymphocytes % Monocytes % Eosinophils % Basophils % Nucleated RBC % (0.0-0.3) % Absolute Neutrophils (1.2-6.7) 10^3/uL Absolute Lymphocytes (1.2-3.4) 10^3/uL Absolute Monocytes (0.1-0.8) 10^3/uL Absolute Eosinophils (0.0-0.7) 10^3/uL Absolute Basophils (0.0-0.2) 10^3/uL ESR (0-15) mm/hr Sodium (136-145) mmol/L Potassium (3.5-5.1) mmol/L Chloride (98-107) mmol/L Carbon Dioxide (21.0-32.0) mmol/L Anion Gap (3-11) mmol/L BUN (7-18) mg/dL Creatinine (0.70-1.30) mg/dL Est GFR (CKD-EPI 2020) (mL/min/1.73m2) Glucose (74-106) mg/dL Calcium (8.5-10.1) mg/dL Total Bilirubin (0.2-1.0) mg/dL AST (15-37) U/L ALT (16-63) U/L Alkaline Phosphatase (46-116) U/L Creatine Kinase (39-308) U/L 316 H C-Reactive Protein (0.0-0.3) mg/dL Total Protein (6.4-8.2) g/dL Albumin (3.4-5.0) g/dL Lipase (16-77) U/L Urine Color (Yellow) Urine Clarity (Clear) Urine pH (5-8) Ur Specific [place] (1.005-1.025) Urine Protein (Negative) mg/dL Urine Ketones (Negative) mg/dL Urine Blood (Negative) Urine Nitrite (Negative) Urine Bilirubin (Negative) Urine Urobilinogen (Up to 0.2) mg/dL Ur Leukocyte Esterase (Negative) Urine RBC (0-2) HPF Urine WBC (0-5) HPF Ur Epithelial Cells (Negative) HPF Urine Crystals (Negative) HPF Urine Bacteria (Negative) HPF Urine Mucus (Negative) Ur Culture Indicated? Urine Glucose (Negative) mg/dL HPI <REJI Ariza - Last Filed: 01/28/23 19:44> General Date/Time Provider Initiated Documentation: 01/26/23 14:28. 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 He states he had a similar episode several years ago in [place] and had CT scans that did not show acute process. He states his symptoms gradually abated and she was discharged home at that time. He states he felt fine prior to going to the gym. He denies any known trauma or lifting. He states he feels like he needs to urinate or have a bowel movement but is unable to do so. He denies any back pain, weakness to his extremities, strength or sensation changes to his extremities or the perineal region. He denies any IV drug use. Related Data Home Medications Medication Instructions Recorded Confirmed pantoprazole 40 mg tablet,delayed 40 mg PO DAILY #30 tabs 10/12/20 01/20/23 release sertraline 50 mg tablet (Zoloft) 50 mg PO DAILY 10/12/20 01/20/23 bictegravir 50 mg-emtricitabine 1 tab PO DAILY 11/19/20 01/20/23 200 mg-tenofovir alafenam 25 mg tablet (Biktarvy) bupropion HCl 150 mg tablet,12 hr mg PO 11/26/21 01/20/23 sustained-release (Wellbutrin SR) Previous Rx's Medication Instructions Recorded pantoprazole 40 mg tablet,delayed 40 mg PO DAILY #30 tabs 10/12/20 release Allergies Allergy/AdvReac Type Severity Reaction Status Date / Time amoxicillin Allergy Verified 01/26/23 14:24 Penicillins Allergy Verified 01/26/23 14:24 General Stated Complaint: Urinary TIARA: 3 PFSH <REJI Ariza - Last Filed: 01/28/23 19:44> All Active Problems (Updated 01/26/23 @ 16:37 by Nilsa Hernandez NP) Inflammatory bowel disease (Acute) Conductive hearing loss in right ear (Acute) Sensorineural hearing loss (SNHL) of both ears (Acute) Asymmetrical sensorineural hearing loss (Acute) Recurrent serous otitis media of both ears (Acute) Adenoiditis (Acute) Serous otitis media (Acute) Anxiety (Chronic) Weight gain (Acute) Esophagitis (Acute) HIV (human immunodeficiency virus infection) (Chronic) Medical History (Updated 01/26/23 @ 16:37 by Nilsa Hernandez NP) Chronic serous otitis media, right ear Cigarette smoker motivated to quit Quit Summer 2021 - Wellbutrin helped Hoarseness URI (upper respiratory infection) Surgical History S/P appendectomy Family History Paternal Grandfather Diabetes Paternal Grandmother Diabetes Father Heart disease CHF (congestive heart failure) Social History Smoking/Tobacco Use Status: Current every day Tobacco Type: cigarettes Smoking risk assessment performed?: Yes Alcohol Intake: current Alcohol Intake frequency: holidays/special occasions only Drug use: Socially Substance use type: marijuana Do you feel safe at home: Yes Do you feel safe in your relationship?: Yes Course <REJI Ariza - Last Filed: 01/28/23 19:44> Vital Signs Vital signs: Vital Signs Temperature 36.4 C L 01/26/23 14:22 Pulse 94 H 01/26/23 14:22 Respiratory Rate 18 01/26/23 14:22 Blood Pressure 133/104 H 01/26/23 14:22 Pulse Oximetry 97 01/26/23 14:22 Temperature 36.4 C L 01/26/23 14:22 Temperature Source Temporal Artery Scan 01/26/23 14:22 Pulse 94 H 01/26/23 14:22 Respiratory Rate 18 01/26/23 14:22 Respiratory Effort Normal, Non-Labored 01/26/23 14:25 Blood Pressure 133/104 H 01/26/23 14:22 Blood Pressure Position Sitting 01/26/23 14:22 Pulse Oximetry 97 01/26/23 14:22 Oxygen Delivery Method Room Air 01/26/23 14:22 Oxygen Flow Rate 0 01/26/23 14:22 Lab/Test Results Lab/Test Results: Laboratory Tests Range/Units 01/26/23 14:40 Lipase Cancelled Sign Out <REJI Ariza - Last Filed: 01/28/23 19:44> Sign Out Data: Sign Out Comment: pending ct, 2 liters fluids, micro reassessment, and dispo likely dehydration, hematuria Last updated by Loni Shaw PA at 01/26/23 15:42
[2023-01-26 15:04] LABS: ESR 15 mm/hr (0-15)
[2023-01-26 15:14] LABS: ALT 21 U/L (16-63); AST 30 U/L (15-37); Albumin 4.2 g/dL (3.4-5.0); Alkaline Phosphatase 83 U/L (46-116); Anion Gap 12.8 mmol/L (3-11); BUN 20 mg/dL (7-18); Bilirubin, Total 0.7 mg/dL (0.2-1.0); C-Reactive Protein 0.74 mg/dL (0.0-0.3); CO2 19.2 mmol/L (21.0-32.0); CREATININE 1.4 mg/dL (0.70-1.30); Calcium 9.5 mg/dL (8.5-10.1); Chloride 104 mmol/L (98-107); Estimated GFR 65.98 (mL/min/1.73m2); Glucose 123 mg/dL (74-106); Lipase 28 U/L (16-77); Potassium 3.6 mmol/L (3.5-5.1); Sodium 136 mmol/L (136-145); Total Protein 7.7 g/dL (6.4-8.2)
[2023-01-26] MEDS: Lactated Ringers 1,000 ML 1000 ML IV (15:15)
[2023-01-26 15:24] LABS: Creatine Kinase 316 U/L (39-308)
[2023-01-26 15:26] LABS: Bilirubin Small (Negative); Blood Large (Negative); Clarity Clear (Clear); Glucose Negative (Negative); Ketones 80 mg/dL (Negative); Leukocyte Esterase Negative (Negative); Nitrite Negative (Negative); Specific Gravity >= 1.030 (1.005-1.025); Urobilinogen 0.2 mg/dL (Up to 0.2)
[2023-01-26 15:42] LABS: Bacteria Negative HPF (Negative); C & S Indicated? No; Crystals Negative HPF (Negative); Epithelial Cells Rare HPF (Negative); Mucus Heavy (Negative); RBC 20-50 HPF (0-2); WBC 0-2 HPF (0-5)
[2023-01-26] MEDS: Normal Saline Flush 10 ML SYR IVP (15:45)
[2023-01-26] MEDS: Normal Saline - Diluent 50 ML VIAL IJ (15:46)
[2023-01-26] MEDS: Omnipaque 350 MG/ML 100 ML BTL IJ (15:47)
== END 2023-01-26 17:18 | disposition home or self-care (01) ==
PROVIDERS: Physician Assistant; Emergency Provider Registered Nurse Emergency; PCP Family Medicine
DX: K51.90 Ulcerative colitis, unspecified, without complications (principal); E86.0 Dehydration
CPT/HCPCS: 36415; 80053; 82550; 83690; 85652; 96361; 96374; 99285; 74177; 81003; 81015; 85025; 86140; 99284; J1170; J3490

== ENCOUNTER 2023-01-29 15:36 | Outpatient (REF) | payer MEDICAID, SELFPAY ==
[2023-01-29 19:22] LABS: Abs Immature Grans 0.02 10^3/uL (0.0-0.06); Absolute Basophil Count 0.07 10^3/uL (0.0-0.2); Absolute Lymphocyte Count 2.32 10^3/uL (1.2-3.4); Absolute Monocyte Count 0.47 10^3/uL (0.1-0.8); Absolute Neutrophil Count 3.67 10^3/uL (1.2-6.7); Basophils % 1.1; Eosinophils % 1.5; HCT 43.7 % (40.0-50.0); Immature Grans % 0.3; Lymphocytes % 34.9; MCH 33.9 pg (27.0-33.0); MCHC 34.3 % (32.0-36.0); MCV 99 fL (80-95); MPV 10.8 fL (8.0-11.0); Monocytes % 7.1; Neutrophils % 55.1; Platelet Count 206 10^3/uL (130-400); RBC 4.43 10^6/uL (4.36-5.78); RDW 13.2 % (11.8-14.1); RDW-SD 47.4 fL; WBC 6.65 10^3/uL (4.4-10.8)
[2023-01-29 19:36] LABS: ALT 24 U/L (16-63); AST 30 U/L (15-37); Albumin 4.1 g/dL (3.4-5.0); Alkaline Phosphatase 81 U/L (46-116); Anion Gap 10.2 mmol/L (3-11); BUN 17 mg/dL (7-18); Bilirubin, Total 0.7 mg/dL (0.2-1.0); CO2 22.8 mmol/L (21.0-32.0); CREATININE 1.2 mg/dL (0.70-1.30); Calcium 10.2 mg/dL (8.5-10.1); Chloride 108 mmol/L (98-107); Estimated GFR 79.38 (mL/min/1.73m2); Glucose 94 mg/dL (74-106); Potassium 4.6 mmol/L (3.5-5.1); Sodium 141 mmol/L (136-145); Total Protein 7.5 g/dL (6.4-8.2)
== END 2023-01-29 15:37 | disposition home or self-care (01) ==
LOC: NCHCN 15:36
PROVIDERS: PCP Family Medicine; Visit Provider Nurse Practitioner Family
DX: R10.33 Periumbilical pain (principal)
CPT/HCPCS: 80053; 85025

== ENCOUNTER 2023-04-14 12:08 | Outpatient (CLI) | payer MEDICAID, SELFPAY ==
--- NOTE | 2023-04-14 12:35 | CCCE_ITS ---
Comprehensive Care Clinic Note Note: [facility] [address] [place], [place]? [address] [facility] Visit for Medical Follow Up Name:? Theodore Appiah? Medical Record [id number] Date of :? 1985? Primary Care Provider:? Isai Gracia MD Date of Service: 04/14/2023 SUBJECTIVE CC/HPI: ?Theodore is here for F/U. he has been on the road performing in [place] mainly and is home for a few weeks. He has been well during this time. He has not missed any of his HIV medication. He is due for the 2nd Meningitis vaccine and to start the Zoster vaccine due to a H/O it. He was seen in the ER and found to have inflammatory bowel at the time on CT scan. There was no evidence of renal calculi which he thought it might be. He has not had a flare since. He has improved his diet, restricting calories and intentionally lost 26 #s. he feel better with the off. He will be leaving town for jobs in the second week in Apr and returning for some time in May. ROS Constitutional: Good energy, appetite, sleep. Weight is intentionally down and stable. Skin: Denies rash Head: Denies trauma, head pain Eyes: Denies visual disturbance, has reading glasses Ear/Nose/Throat: Negative Mouth/Teeth: UTD w dental Neck: No pain or stiffness CV: Denies chest pain, pressure, palpitations Respiratory: Denies cough, dyspnea, hemoptysis GI: No N/V/D/C or rectal bleeding : Negative Musculoskeletal: Denies joint or back pain Endocrine: No polyuria, polydipsia; heat or cold intolerance Lymphatic: Has not noted any enlarged nodes Hematologic: No unusual bleeding, bruising Immunologic: CD4 count has never been below 200, no risk for OI Psychiatric: Denies Anxiety, Depression, SI/HI Allergies/Sensitivities: NKDA Current Medications: Biktarvy 50-200-25 mg tab daily Wellbutrin SR 150mg bid Zoloft 50 mg pantoprazole 40 mg daily Medical / Surgical History Update: Dx in Jan inflammatory bowel Psychiatric History Update: Stable depression on current medications Social History Update: Traveling for work and doing very well. 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 Tobacco: quit ? ETOH: rare ? Drug Use: None Family History Update: ?Nothing new Immunization Needed? 2nd Meningococcal, 1st Zoster recombivax (had Zoster), will need 3rd Hep A/B scheduled Health Maintenance: xx OBJECTIVE Height: Weight:Temp: 98.4, Pulse: 72, Respirations: 14, Blood Pressure:132/80 General: ?WDWNL, AINAD, On time for appointment Skin: ?W/D, no rash or lesions noted Head: ?NCAT Eyes: non icteric Ears, Nose, Mouth: Neg Neck: Supple, Thyroid non palp, no swelling/crepitus Chest: Full, equal expansion, Lungs clear on all lobes CV: RRR, No MCRG, extremity pulses 2/4 w symmetry Abdomen: NABS, ND, NT, No OGM or masses felt, No Bruits Neuro: Gait strong and steady, No tics or tremor Lymphatic: No palpable enlarged nodes Psychiatric: - appearance: well groomed, unkempt, bizarre, inappropriate, flamboyant, stated age [older/younger] - eye contact: good, fair, poor, intrusive, none - attitude: cooperative, guarded, suspicious, belligerent, apathetic, withdrawn, helpless, hopeless - speech: normal, slow, rapid, soft, loud, pressured, slurred, echolalia - affect: appropriate, restricted, blunted, flat, expansive, labile, incongruent - mood: euthymic, depressed, anxious, irritable, angry, tearful, euphoric - memory: short term intact, custodial intact, short term impaired, ad terminal makeup operator impaired - self-perception: WNL, grandiose, aggrandizing, dissociated, depersonalized, self-deprecating - motor activity: normal, restless, agitated, retarded, abnormal movements - orientation: intact, impaired [person/place/thing], confused - attention: intact, distracted, racing thoughts - thought process: logical, goal directed, tangential, circumstantial, loose, racing thoughts, thought blocking - thought content: normal, delusions, paranoia, ideas of reference, paucity of content, cognitive distortions - perceptions: WNL, hallucinations [auditory/visual/tactile/olfactory], illusions - judgement: intact, impaired minimally, impaired moderately, impaired severely - insight: excellent, good, fair, poor ASSESSMENT/PLAN : HIV 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 He is given a lab slip and will get them done when he is in town in May Provider of Care:? Destiny Jhaveri, MSN, METAL TREATER
== END 2023-04-14 12:09 | disposition home or self-care (01) ==
LOC: CCC 12:11
PROVIDERS: PCP Family Medicine; Visit Provider Nurse Practitioner Family
DX: B20 Human immunodeficiency virus [HIV] disease (principal); Z79.899 Other long term (current) drug therapy

== ENCOUNTER 2023-05-24 05:01 | Outpatient (CLI) | payer MEDICAID, SELFPAY ==
[2023-05-24 10:29] LABS: Abs Immature Grans 0.01 10^3/uL (0.0-0.06); Absolute Basophil Count 0.06 10^3/uL (0.0-0.2); Absolute Eosinophil Count 0.15 10^3/uL (0.0-0.7); Absolute Lymphocyte Count 2.23 10^3/uL (1.2-3.4); Absolute Monocyte Count 0.82 10^3/uL (0.1-0.8); Absolute Neutrophil Count 3.07 10^3/uL (1.2-6.7); Basophils % 0.9; Eosinophils % 2.4; HCT 42.3 % (40.0-50.0); Immature Grans % 0.2; Lymphocytes % 35.2; MCH 34.8 pg (27.0-33.0); MCHC 35.5 % (32.0-36.0); MCV 98 fL (80-95); MPV 9.2 fL (8.0-11.0); Monocytes % 12.9; Neutrophils % 48.4; Platelet Count 248 10^3/uL (130-400); RBC 4.31 10^6/uL (4.36-5.78); RDW 12.9 % (11.8-14.1); RDW-SD 46.5 fL; WBC 6.34 10^3/uL (4.4-10.8)
[2023-05-24 11:01] LABS: ALT 30 U/L (16-63); AST 68 U/L (15-37); Albumin 3.6 g/dL (3.4-5.0); Alkaline Phosphatase 73 U/L (46-116); Anion Gap 10.8 mmol/L (3-11); BUN 14 mg/dL (7-18); Bilirubin, Total 0.6 mg/dL (0.2-1.0); CO2 22.2 mmol/L (21.0-32.0); CREATININE 1.2 mg/dL (0.70-1.30); Calcium 9.1 mg/dL (8.5-10.1); Chloride 105 mmol/L (98-107); Estimated GFR 78.89 (mL/min/1.73m2); Glucose 89 mg/dL (74-106); Potassium 3.7 mmol/L (3.5-5.1); Sodium 138 mmol/L (136-145); Total Protein 6.9 g/dL (6.4-8.2)
[2023-05-25 13:54] LABS: 4/8 Ratio 1.22 (>=0.90); Absolute CD3 2091 Cells/uL (840-2669); Absolute CD8 950 Cells/uL (154-1097); CD3 84 % (56-84); CD4 47 % (31-64); CD8 38 % (9-39)
[2023-05-27 13:24] LABS: HIV 1 RNA Qualitative Undetected copies/mL (Undetected)
== END 2023-05-24 05:02 | disposition home or self-care (01) ==
LOC: LBO 05:01
PROVIDERS: PCP Family Medicine; Visit Provider Nurse Practitioner Family
DX: B20 Human immunodeficiency virus [HIV] disease (principal); Z79.899 Other long term (current) drug therapy
CPT/HCPCS: 36415; 80053; 87536; 85025; 86359; 86360

== ENCOUNTER 2023-12-31 06:25 | Emergency (ER) | payer MEDICAID, SELFPAY ==
--- OUTSIDE RECORDS SUMMARY | 2023-12-31 06:29 | XMS_ITS | Encounter Summary ---
Author Organization [facility] Address [address] [place] [address] Care Team Providers Care Senior Treasury Analyst Name Role Phone Isai Gracia MD Primary Care Provider [phone] Encounter Details Date Type Department Care Team (Late st Contact Info) Description 04/15/2021 Lab Requisition [facility] Pathology & Laboratory Medicine - [facility] [address], [place] [id number] Outr Resulting Lab, Provider Social History Tobacco Use Types Packs/Day Years Used Date Smoking Tobacco: Never Assessed Sex and Gender Information Value Date Recorded Sex Assigned at Male 10/07/2020 12:27 EDT Gender Identity Male 07/03/2021 8:35 EDT Sexual Orientation Not on file documented as of this encounter Plan of Treatment Upcoming Encounters Date Type Department Care Team (Late st Contact Info) Description 01/10/2024 10:00 EDT Telemedicine [facility] Infectious Disease - [address] [address] Frantz Geronimo, DO [address] [facility] [address] [place] [id number] documented as of this encounter Procedures Procedure Name Priority Date/Time Associated Diagnosis Comments T CELL SUBSETS Routine 04/15/2021 11:00 EST HIV 1 RNA QUANTITATION Routine 04/15/2021 11:00 EST documented in this encounter Results * (ABNORMAL) HIV 1 RNA QUANTITATION (04/15/2021 11:00 EST) Pathologist [facility] HIV RNA Detection, Qual Detected( A) Undetected copies/mL 04/17/2021 13:07 [facility] HIV 1 RNA Quant 47(H) Undetected copies/mL 04/17/2021 13:07 [facility] Blood VENOUS BLOOD / Unknown 04/15/2021 11:00 EST 04/15/2021 21:[address] [facility] - 04/17/2021 13:07 EST New platform in use 10/14/2020 The quantification range of this assay is 20 IU/mL to 10,000,000 IU/mL. ??Testing was performed using the Earnest HIV test ([employer] with the earnest Adomo0 System. Provider Outr Resulting Lab CHEMISTRY & BLOOD GAS ORDERABLES Performing Organization Address City/State/[facility] Co de Phone Number [facility] [address] [place] [phone] * T CELL SUBSETS (04/15/2021 11:00 EST) Pathologist [facility] % CD3 82 56 - 84 % 04/16/2021 16:49 [facility] % CD4 46 31 - 64 % 04/16/2021 16:49 [facility] % CD8 36 9 - 39 % 04/16/2021 16:49 [facility] Absolute CD3 2,371 840-2,669 Cells/uL 04/16/2021 16:49 [facility] Absolute CD4 1,312 488-1,734 Cells/uL 04/16/2021 16:49 [facility] Absolute CD8 1,044 154-1,097 Cells/uL 04/16/2021 16:49 [facility] 4/8 Ratio 1.26 >=0.90 04/16/2021 16:49 [facility] Blood VENOUS BLOOD / Unknown 04/15/2021 11:00 EST 04/15/2021 21:17 EST Provider Outr Resulting Lab IMMUNOLOGY A ND SEROLOGY ORDERABLES [facility] [address] [place] [address] documented in this encounter Visit Diagnoses Not on filedocumented in this encounter Care Teams Senior Treasury Analyst Relationship Specialty Start Date End Date Isai Gracia MD [facility] [place] [place] [address] PCP - General 07/03/21 documented as of this encounter
--- OUTSIDE RECORDS SUMMARY | 2023-12-31 06:29 | XMS_ITS | Encounter Summary ---
Author Organization [facility] Address [address] [place] [address] Care Team Providers Care Back Hoe Machine Operator Name Role Phone Isai Gracia MD Primary Care Provider [phone] Reason for Visit * Reason Comments Follow-up Encounter Details Date Type Department Care Team (Late st Contact Info) Description 10/13/2021 10:00 EDT Telemedicine [facility] Infectious Disease - [address] [id number] Frantz Geronimo, DO [address] [facility], [facility] [address] [place] [phone] Asymptomatic HIV infection, with no history of HIV-related illness (HCC) (Primary Dx) Social History Tobacco Use Types Packs/Day Years Used Date Smoking Tobacco: Never Assessed Sex and Gender Information Value Date Recorded Sex Assigned at Male 10/07/2020 12:27 EDT Gender Identity Male 07/03/2021 8:35 EDT Sexual Orientation Not on file documented as of this encounter Progress Notes * Frantz Geronimo, - 10/13/2021 1000 EDT I spent a total of 30 minutes on the date of this encounter meeting with the patient and reviewing documentation/coordinating care as described in the above note. No procedures were performed at the time of the visit. Division of Infectious Disease Follow up/Progress Note 10/12/21 18:14 TELEMEDICINE VIDEO VISIT Today's visit was provided through telemedicine video conferencing: The location of the patient : Home The location of the provider: Office, [place] The following staff and their role did participate in today's encounter visit: Frantz Geronimo, DO The concept of ???Telemedicine?? has been described to the patient.? Patient has been informed of the anticipated benefits and possible risks.? Patient understands the information provided regardingtelemedicine, has had the opportunity to ask questions about this information, and all questions have been answered to patient???s satisfaction. Patient consents for the use of telemedicine in his/her medical care and authorizes the transmission of any relevant medical information to providers and their staff involved in patient???s medical or mental health care HPI:??Mr.??Bijal??is a 36??y.o.??male who is here for??HIV follow up. ??Patient ??diagnosed with HIVsummer 2020??when he presented to an urgent care in [facility] to restart PrEP which he had beenoff of since Feb 2019. ??His last known HIV negative test dates back to summer 2019??per his report??while he was living??in [place]. ?His initial panel of labs collected 18 September 2020 shows an HIV genotype with no relevant mutations, his initial CD4 count??Aug 2020??916, his initial viral load is 9563.?Started on Biktarvy??in October 2020. ??Most recent labs September 2021 VL < 20, CD4 1070. ?? Please see initial eval note from September 2020 for back ground. ??Since starting Biktarvy in October 2020, pt with perfect adherence.?He gets 30-day supply at a time. 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 ??He enjoys living with his mom and helping around the house. His mom is aware of the of his diagnosis. Work continues to get better and better. 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 No financial difficulties. ? Review of Systems: 10-point review of [...] HW Social History Tobacco:??Quit smoking Spring 2021. 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 Relationships / Living Situation:?Single, has 1 male partner in [place] who is currently on PrEP. Patient unclear if this is a close relationship. We advised him to keep using condoms. Travel:Born in [facility]. ??Pt moved to [place] after highschool and has lived in [place] for work. 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 Animal exposure:??No pets Food:??No raw milk Other comments:??Routine childhood vaccines as child in [place]. ?? Social History ? Socioeconomic History ??? [...] state ?? Physical Exam General: NAD, very pleasant. Weight 234 pounds. Blood pressure 140/74, pulse 82, respirations 14 ?? Assessment and Plan: ?? #) HIV -Newly diagnosed in??August 2020. ??Initial genotype August 2020 no relevant mutations.?Had been offprep since February 2019. ??Suspect he was infected in April 2020 timeframe. - Prior regimens include??N/A -??Biktarvy started October 2020. ??Gets 30 days at a time.?Has great supply. ??No missed. - Last CD4 count??September 2021 1070 - Last HIV viral load??September 2021 < 20 - OI prophylaxis:??N/A - Compliance:??excellent - Sexual activity:??Not currently - G/C, RPR??states these were performed at primary care provider's office but we need to confirm this. - HBV/HCV??August 2020 hepatitis A total antibody negative, hepatitis B core antibody negative,?Bit by dog 2018 time frame and got Td by report. - PCM is ??Isai[facility]. -??Follow-up with us in??6 months ?? #) Health maintenance - Colonoscopy:??Colonoscopy as a teenager while in [facility]. ??Unclear the findings. - Immunizations:??COVID July-August 2020.?Got covid infection Mar 2021.?Prevnar/Flu vaccine 23 Dec 2020.?Patient given??pneumovax and meningitis??#20 Jan 2021.?? Patient will get??meningitis #2 and hepatitis A /hepatitis B initial vaccine today. Patient will need HPV (this may be better done through the primary care provider)..?? He will also get his COVID booster #2 this week. ?? 3)??Anxiety, much improved since he was started on Zoloft/Wellbutrin by PCM. Seems to be OK but he ran out of Zoloft and he will kaw back around with his primary. ?? 4) weight gain, patient is currently 234 pounds which is about 50 pounds heavier from a year ago. Patient hired a customer trainer and knows to start working on this. It has been a pleasure seeing??Mr.??Bijal??in clinic today. ?? Frantz Geronimo DO Pager [phone] Infectious Diseases ? Currently employed:??Yes ?? Adherence [...] Contact Info) Description 01/10/2024 10:00 EDT Telemedicine [facility] Infectious Disease - [facility] [address] [place] [phone] Frantz Geronimo DO [address] [facility], [address] [place] [address] documented as of this encounter Visit Diagnoses Diagnosis Asymptomatic HIV infection, with no history of HIV-related illness ([facility])- Primary documented in this encounter Care Teams Back Hoe Machine Operator Relationship Specialty Start Date End Date Isai Gracia MD [address] [place] [address] PCP - General 07/03/21 documented as of this encounter
--- OUTSIDE RECORDS SUMMARY | 2023-12-31 06:29 | XMS_ITS | Encounter Summary ---
Author Organization [facility] Address [address] [place] [address] Care Team Providers Care Bump Grader Operator Name Role Phone Isai Gracia MD Primary Care Provider [phone] Reason for Visit * Reason Onset Date Comments Medication Problem 09/29/2021 Encounter Details Date Type Department Care Team (Late st Contact Info) Description 09/29/2021 Telephone [facility] Infectious Disease - [address] [address] Frantz Geronimo, DO [address] [facility], [address] [place] [phone] Medication Problem Social History Tobacco Use Types Packs/Day Years Used Date Smoking Tobacco: Never Assessed Sex and Gender Information Value Date Recorded Sex Assigned at Male 10/07/2020 12:27 EDT Gender Identity Male 07/03/2021 8:35 EDT Sexual Orientation Not on file documented as of this encounter Ordered Prescriptions Prescription Sig Dispensed Refills Start Date End Da te bictegravir-emtricitabine- tenofovir alafenamide (BIKTARVY) 50-200-25 mg per tablet Take 1 Tablet by mouth daily. 30 Tablet 5 09/29/2021 documented in this encounter Miscellaneous Notes * Telephone Encounter - Lily Dawson RN - 09/29/2021 1627 EDT Called [facility] in [place]. They explained per Medicaid requirements, the RX can only be for6 months, the extra refills would become void and a new RX would be needed. Electronically sent in a new refill for Biktarvy to [facility]. LM , notifying patient of this information. LILY DAWSON, RN * Telephone Encounter - Kerry Bautista - 09/29/2021 1336 EDT Patient states that his Biktarvy prescription was supposed to be for 1 month with 11 refills, but the pharmacy is telling him that it is only for 5 refills (total of 6 months), and he is on his last refill now. Uses [facility] in [place]. Would like a call back at [phone]. documented in this encounter Plan of Treatment Upcoming Encounters Date Type Department Care Team (Late st Contact Info) Description 01/10/2024 10:00 EDT Telemedicine [facility] Infectious Disease - [address] [phone] Frantz Geronimo, DO [address] [facility], [address] [place] [address] documented as of this encounter Visit Diagnoses Not on filedocumented in this encounter Discontinued Medications Medication Sig Discontinue Reason Start Date End Da te bictegravir-emtricitabine -tenofovir alafenamide (BIKTARVY) 50-200-25 mg per tablet Take 1 Tablet by mouth daily. Reorder 04/25/2021 09/29/2021 documented as of this encounter Care Teams Bump Grader Operator Relationship Specialty Start Date End Date Isai Gracia MD [facility] [place] [address] PCP - General 07/03/21 documented as of this encounter
--- OUTSIDE RECORDS SUMMARY | 2023-12-31 06:29 | XMS_ITS | Encounter Summary ---
Author Organization [facility] Address [address] [place] [address] Care Team Providers Care Teletype Adjuster Name Role Phone Isai Gracia MD Primary Care Provider [phone] Encounter Details Date Type Department Care Team (Late st Contact Info) Description 12/04/2020 Lab Requisition [facility] Pathology & Laboratory Medicine - [facility] [address] [place], [place] [address] Outr Resulting Lab, Provider Social History Tobacco [...] Contact Info) Description 01/10/2024 10:00 EDT Telemedicine [facility] Infectious Disease - [address] [address] Frantz Geronimo, DO 111 [facility], [address] [place] [phone] documented as of this encounter Procedures Procedure Name Priority Date/Time Associated Diagnosis Comments HIV 1 RNA QUANTITATION Routine 12/04/2020 11:35 EDT documented in this encounter Results * (ABNORMAL) HIV 1 RNA QUANTITATION (12/04/2020 11:35 EDT) HIV RNA Detection, Qual Detected( A) Undetected copies/mL 12/06/2020 13:45 EDT [facility] HIV 1 RNA Quant 73(H) Undetected copies/mL 12/06/2020 13:45 EDT [facility] Blood VENOUS BLOOD / Unknown 12/04/2020 11:35 EDT 12/04/2020 21:17 EDT Narrative [facility] - 12/06/2020 13:45 EDT New platform in use 10/14/2020 The quantification range of this assay is 20 IU/mL to 10,000,000 IU/mL. ??Testing was performed using the Earnest HIV test ([employer] with the earnest [id number].[email or web address] System. Provider Outr Resulting Lab CHEMISTRY & BLOOD GAS ORDERABLES Performing Organization Address City/State/[facility] [[email or web address]] Co de Phone Number [facility] [address] [place] [address] documented in this encounter Visit Diagnoses Not on filedocumented in this encounter Care Teams Teletype Adjuster Relationship Specialty Start Date End Date Isai Gracia [place] [address] PCP - General 07/03/21 documented as of this encounter
--- OUTSIDE RECORDS SUMMARY | 2023-12-31 06:29 | XMS_ITS | Encounter Summary ---
Author Organization [facility] Address [address] [place] [address] Care Team Providers Care Retail Pricing Coordinator Name Role Phone Isai Gracia MD Primary Care Provider [phone] Encounter Details Date Type Department Care Team (Late st Contact Info) Description 09/03/2020 Lab Requisition [facility] Pathology & Laboratory Medicine - [facility] [address] [place], [place] [address] Outr Resulting Lab, Provider Social History Tobacco [...] Contact Info) Description 01/10/2024 10:00 EDT Telemedicine [facility] Infectious Disease - [address] [address] Frantz Geronimo, DO 111 [facility], Level [address] [place] [phone] documented as of this encounter Procedures Procedure Name Priority Date/Time Associated Diagnosis Comments HIV 1 AND 2 AB CONFIRMATION/DIFFERE NTIATION Today 09/02/2020 15:23 EDT HIV 1/2 ANTIGEN AND ANTIBODY, 4TH GENERATION Routine 09/02/2020 15:23 EDT documented in this encounter Results * (ABNORMAL) HIV 1 AND 2 AB CONFIRMATION/DIFFERENTIATION (09/02/2020 15:23 EDT) HIV-1 Antibody Confirm Positive( A) Negative 09/04/2020 12:[address] [facility] HIV-1 Band(s) p31 (HIV-1 Shay) gp160 (HIV-1 Env) p24 (HIV-1 GAG) gp41 (HIV-1 Env) 09/04/2020 12:[address] [facility] Comment:Presence of HIV-1 an tibodies is confirmed. HIV-2 Antibody Confirm Indetermi joceline(A) Negative 09/04/2020 12:[address] [facility] Comment:Band pattern does no t meet the criteria for a Positive result. HIV-2 Band(s) gp140 (HIV-2 Env) 09/04/2020 12:[address] [facility] Blood VENOUS BLOOD / Unknown 09/02/2020 15:23 EDT 09/03/2020 16:10 EDT Provider Outr Resulting Lab CHEMISTRY & BLOOD GAS ORDERABLES [facility] [address] [place] [address] * (ABNORMAL) HIV 1/2 ANTIGEN AND ANTIBODY, 4TH GENERATION (09/02/2020 15:23 EDT) HIV 1 and 2 Antibody/p24 Antigen, 4th Generation Reactive( A) Negative 09/04/2020 11:[address] [facility] Comment: Reactive for Anti-HIV1 and/or Anti-HIV2. Refer to HIV 1 and 2 Ab Differentiation for final result and interpretation. HIV antibody result should be interpreted in the context of the patient's total clinical and laboratory information. Fourth Generation assay performed on the Siemens Centaur XPT. Blood VENOUS BLOOD / Unknown 09/02/2020 15:23 EDT 09/03/2020 16:10 EDT Provider Outr Resulting Lab IMMUNOLOGY A ND SEROLOGY ORDERABLES [facility] [address] [place] [address] documented in this encounter Visit Diagnoses Not on filedocumented in this encounter Care Teams Retail Pricing Coordinator Relationship Specialty Start Date End Date Isai Gracia MD [address] [place] [address] PCP - General 07/03/21 documented as of this encounter
--- OUTSIDE RECORDS SUMMARY | 2023-12-31 06:29 | XMS_ITS | Encounter Summary ---
Author Organization [facility] Address [address] [place] [address] Care Team Providers Care Quality Assurance Auditor Name Role Phone Unavailable Primary Care Provider Unavailabl e Reason for Visit * Reason Onset Date Comments Medications Refill 04/25/2021 Encounter Details Date Type Department Care Team (Late st Contact Info) Description 04/25/2021 Telephone [facility] Infectious Disease - [address] [address] Frantz Geronimo, DO [address] [facility], [address] [place] [phone] Medications Refill Social History Tobacco Use Types Packs/Day Years Used Date Smoking Tobacco: Never Assessed Sex and Gender Information Value Date Recorded Sex Assigned at Male 10/07/2020 12:27 EDT Gender Identity Male 07/03/2021 8:35 EDT Sexual Orientation Not on file documented as of this encounter Ordered Prescriptions Prescription Sig Dispensed Refills Start Date End Da te bictegravir-emtricitabine -tenofovir alafenamide (BIKTARVY) 50-200-25 mg per tablet Take 1 Tablet by mouth daily. 30 Tablet 11 04/25/2021 09/29/2021 documented in this encounter Miscellaneous Notes * Telephone Encounter - Erika Rodriguez RN - 04/25/2021 1514 EST E-RX Biktarvy to [facility] * Telephone Encounter - Ludy Rios MA - 04/25/2021 1305 EST Pt states he will be out of his Biktarvy on Wednesday04/27/21. Asking that we send a refill to [facility] [place], [place]. documented in this encounter Plan of Treatment Upcoming Encounters Date Type Department Care Team (Late st Contact Info) Description 01/10/2024 10:00 EDT Telemedicine [facility] Infectious Disease - [address] [address] Frantz Geronimo, DO [address] [place] [address], [address] [place] [address] documented as of this encounter Visit Diagnoses Not on filedocumented in this encounter
--- OUTSIDE RECORDS SUMMARY | 2023-12-31 06:29 | XMS_ITS | Encounter Summary ---
Author Organization [facility] Address [address] [place] [address] Care Team Providers Care Senior Solutions Consultant Name Role Phone Isai Gracia MD Primary Care Provider [phone] Encounter Details Date Type Department Care Team (Late st Contact Info) Description 02/10/2021 Lab Requisition [facility] Pathology & Laboratory Medicine - [facility] [address] [place], [place] [address] Outr Resulting Lab, Provider Social History Tobacco [...] Contact Info) Description 01/10/2024 10:00 EDT Telemedicine [facility] Infectious Disease - [address] [address] Frantz Geronimo, DO [address] [facility], [address] [place] [phone] documented as of this encounter Procedures Procedure Name Priority Date/Time Associated Diagnosis Comments T CELL SUBSETS Routine 02/10/2021 11:18 EST HIV 1 RNA QUANTITATION Routine 02/10/2021 11:18 EST documented in this encounter Results * (ABNORMAL) HIV 1 RNA QUANTITATION (02/10/2021 11:18 EST) [facility] HIV RNA Detection, Qual Detected( A) Undetected copies/mL 02/14/2021 12:07 [facility] HIV 1 RNA Quant 72(H) Undetected copies/mL 02/14/2021 12:07 [facility] Blood VENOUS BLOOD / Unknown 02/10/2021 11:18 EST 02/10/2021 16:[address] [facility] - 02/14/2021 12:07 EST New platform in use 10/14/2020 The quantification range of this assay is 20 IU/mL to 10,000,000 IU/mL. ??Testing was performed using the Earnest HIV test ([employer] with the earenst Master Route0 System. Provider Outr Resulting Lab CHEMISTRY & BLOOD GAS ORDERABLES Performing Organization Address City/State/[facility] Co de Phone Number [facility] [address] [place] [address] * (ABNORMAL) T CELL SUBSETS (02/10/2021 11:18 EST) [facility] % CD3 82 56 - 84 % 02/11/2021 14:18 [facility] % CD4 44 31 - 64 % 02/11/2021 14:18 [facility] % CD8 38 9 - 39 % 02/11/2021 14:18 [facility] Absolute CD3 2,542 840-2,669 Cells/uL 02/11/2021 14:18 [facility] Absolute CD4 1,362 488-1,734 Cells/uL 02/11/2021 14:18 [facility] Absolute CD8 1,185(H) 154-1,097 Cells/uL 02/11/2021 14:18 [facility] 4/8 Ratio 1.15 >=0.90 02/11/2021 14:18 [facility] Blood VENOUS BLOOD / Unknown 02/10/2021 11:18 EST 02/11/2021 9:33 EST Provider Outr Resulting Lab IMMUNOLOGY A ND SEROLOGY ORDERABLES [facility] [address] [place] [address] documented in this encounter Visit Diagnoses Not on filedocumented in this encounter Care Teams Senior Solutions Consultant Relationship Specialty Start Date End Date Isai Gracia MD [facility] [place] [address] PCP - General 07/03/21 documented as of this encounter
--- OUTSIDE RECORDS SUMMARY | 2023-12-31 06:29 | XMS_ITS | Encounter Summary ---
Author Organization [facility] Address [address] [place] [address] Care Team Providers Care Manager It Training Name Role Phone Isai Gracia MD Primary Care Provider [phone] Encounter Details Date Type Department Care Team (Late st Contact Info) Description 09/03/2020 Lab Requisition [facility] Pathology & Laboratory Medicine - [address] [phone] Outr Resulting Lab, Provider Social History Tobacco [...] Contact Info) Description 01/10/2024 10:00 EDT Telemedicine [facility] Infectious Disease - [address] [address] Frantz Geronimo, DO [address] [facility], [facility] [address] [place] [phone] documented as of this encounter Procedures Procedure Name Priority Date/Time Associated Diagnosis Comments SYPHILIS SEROLOGY Routine 09/02/2020 15: 23 EDT documented in this encounter Results * SYPHILIS SEROLOGY (09/02/2020 15:23 EDT) Syphilis Serology Negative Negative 09/04/2020 11:16 EDT [facility] Blood VENOUS BLOOD / Unknown 09/02/2020 15:23 EDT 09/03/2020 16:12 EDT Provider Outr Resulting Lab IMMUNOLOGY A ND SEROLOGY ORDERABLES Performing Organization Address City/State/[facility] Co de Phone Number [facility] [address] [place] [address] documented in this encounter Visit Diagnoses Not on filedocumented in this encounter Care Teams Manager It Training Relationship Specialty Start Date End Date [place] [address] PCP - General 07/03/21 documented as of this encounter
--- OUTSIDE RECORDS SUMMARY | 2023-12-31 06:29 | XMS_ITS | Encounter Summary ---
Author Organization [facility] Address [address] [place] [address] Care Team Providers Care Waiter And Cashier Name Role Phone Isai Gracia MD Primary Care Provider [phone] Encounter Details Date Type Department Care Team (Late st Contact Info) Description 05/24/2023 Lab Requisition [facility] Pathology & Laboratory Medicine - [facility] [address] [place], [place] [address] Outr Resulting Lab, Provider Social History Tobacco [...] Contact Info) Description 01/10/2024 10:00 EDT Telemedicine [facility] Infectious Disease - [address] [address] Frantz Geronimo, DO [address] [facility], [address] [place] [phone] documented as of this encounter Procedures Procedure Name Priority Date/Time Associated Diagnosis Comments T CELL SUBSETS Routine 05/24/2023 10:24 EST HIV 1 RNA QUANTITATION Routine 05/24/2023 10:24 EST documented in this encounter Results * HIV 1 RNA QUANTITATION (05/24/2023 10:24 EST) [facility] HIV RNA Detection, Qual Undetected Undetected copies/mL 05/27/2023 13:19 EST [facility] Blood VENOUS BLOOD / Unknown 05/24/2023 10:24 EST 05/24/2023 16:49 EST Narrative [facility] - 05/27/2023 13:19 EST The quantification range of this assay is 20 IU/mL to 10,000,000 IU/mL. ??Testing was performed using the Earnest HIV test (Luis [employer] with the earnest Pathflow0 System. Provider Outr Resulting Lab CHEMISTRY & BLOOD GAS ORDERABLES Performing Organization Address [facility] Co de Phone Number [facility] [address] [place] [phone] * T CELL SUBSETS (05/24/2023 10:24 EST) [facility] % CD3 84 56 - 84 % 05/25/2023 13:49 [facility] % CD4 47 31 - 64 % 05/25/2023 13:49 [facility] % CD8 38 9 - 39 % 05/25/2023 13:49 [facility] Absolute CD3 2,091 840 - 2,669 Cells/uL 05/25/2023 13:49 [facility] Absolute CD4 1,157 488 - 1,734 Cells/uL 05/25/2023 13:49 [facility] Absolute CD8 950 154 - 1,097 Cells/uL 05/25/2023 13:49 [facility] 4/8 Ratio 1.22 >=0.90 05/25/2023 13:49 [facility] Blood VENOUS BLOOD / Unknown 05/24/2023 10:24 EST 05/24/2023 16:42 EST Provider Outr Resulting Lab IMMUNOLOGY A ND SEROLOGY ORDERABLES Performing Organization Address [facility]/ZIP Co de Phone Number [facility] [address] [place] [address] documented in this encounter Visit Diagnoses Not on filedocumented in this encounter Care Teams Waiter And Cashier Relationship Specialty Start Date End Date Isai Gracia MD [address] [place] [address] PCP - General 07/03/21 documented as of this encounter
--- OUTSIDE RECORDS SUMMARY | 2023-12-31 06:29 | XMS_ITS | Encounter Summary ---
Author Organization [facility] Address [address] [place] [address] Care Team Providers Care Director Custom Name Role Phone Unavailable Primary Care Provider Unavailabl e Reason for Visit * Reason Comments Follow-up Encounter Details Date Type Department Care Team (Late st Contact Info) Description 05/05/2021 10:00 EST Telemedicine [facility] Infectious Disease - [address] [address] Frantz Geronimo, DO [address] [facility], [address] [place] [address] Asymptomatic HIV infection, with no history of HIV-related illness (HCC) (Primary Dx) Social History Tobacco Use Types Packs/Day Years Used Date Smoking Tobacco: Never Assessed Sex and Gender Information Value Date Recorded Sex Assigned at Male 10/07/2020 12:27 EDT Gender Identity Male 07/03/2021 8:35 EDT Sexual Orientation Not on file documented as of this encounter Progress Notes * Frantz Geronimo, - 05/05/2021 1000 EST I spent a [...] care as described in the progress note. HPI:??Mr.??Bijal??is a 36 y.o.??male who is here for??HIV follow up. ??Patient ??diagnosed with HIV summer 2020??when he presented to an urgent care in [facility] to restart PrEP which he had been off of since Feb 2019. ??His last known HIV negative test dates back to summer 2019??per his report??while he was living??in [place]. ?His initial panel of labs collected 18 [...] the music industry. Very busy, traveling to [place] and [place]. Things are very stable at home. He [...] Apr 2020. ??MSM.?. ??Father 2020. Travel:Born in [facility]. ??Pt moved to [place] after highschool and has lived in [place] [facility] for work. 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 Animal exposure:??No pets Food:??No raw milk Other comments:??Routine childhood vaccines as child in [place]. ?? Social History ? Socioeconomic History ??? [...] Gatherings with Friends and Family: ??? Attends Zoroastrian Services: ??? Active Member of Clubs or [...] No missed. - Last CD4 count??Mar 2021 131 - Last HIV viral load Mar 2021 [...] to make sure that he becomes < 20??with continued ART. ?? #) Health maintenance - Cholesterol:??No results found for: CHOL, HDL, LDLBASE, TRIG, CHOLHDL - Diabetes:??No results found for: HGBA1C - Colonoscopy:??Colonoscopy as a teenager while in [facility]. ??Unclear the findings. - Immunizations:??COVID [...] clinic today. ?? Frantz Geronimo DO Pager [phone] Infectious Diseases ? Currently employed:??Yes ?? Adherence [...] Contact Info) Description 01/10/2024 10:00 EDT Telemedicine [facility] Infectious Disease - [address] [address] Frantz Geronimo DO [address] [facility], [address] [place] [phone] documented as of this encounter Visit Diagnoses Diagnosis Asymptomatic HIV infection, with no history of HIV-related illness ([facility])- Primary documented in this encounter
--- OUTSIDE RECORDS SUMMARY | 2023-12-31 06:29 | XMS_ITS | Encounter Summary ---
Author Organization [facility] Address [address] [place] [address] Care Team Providers Care Cardiovascular Technician Name Role Phone Isai Gracia MD Primary Care Provider [phone] Encounter Details Date Type Department Care Team (Late st Contact Info) Description 09/18/2020 Lab Requisition [facility] Pathology & Laboratory Medicine - [facility] [address] [place], [place] [address] Outr Resulting Lab, Provider Social History Tobacco [...] Contact Info) Description 01/10/2024 10:00 EDT Telemedicine [facility] Infectious Disease - [address] [address] Frantz Geronimo, DO [address] [facility], [address] [place] [phone] documented as of this encounter Procedures Procedure Name Priority Date/Time Associated Diagnosis Comments T CELL SUBSETS Routine 09/18/2020 8:40 EDT HIV 1 RNA QUANTITATION Routine 09/18/2020 8:40 EDT documented in this encounter Results * (ABNORMAL) HIV 1 RNA QUANTITATION (09/18/2020 8:40 EDT) [facility] HIV RNA Detection, Qual Detected( A) Undetected copies/mL 09/19/2020 14:43 [facility] HIV 1 RNA Quant 9,563(H) Undetected copies/mL 09/19/2020 14:43 [facility] Blood VENOUS BLOOD / Unknown 09/18/2020 8:40 EDT 09/18/2020 15:56 EDT [facility] - 09/19/2020 14:43 EDT The quantification range of this assay is 20 IU/mL to 10,000,000 IU/mL. ??Testing was performed on the LUZ Ampliprep/LUZ TaqMan HIV v2.0 ([employer] Provider Outr Resulting Lab CHEMISTRY & BLOOD GAS ORDERABLES Performing Organization Address City/State/[facility] Co de Phone Number [facility] [address] [place] [phone] * (ABNORMAL) T CELL SUBSETS (09/18/2020 8:40 EDT) [facility] % CD3 88(H) 56 - 84 % 09/19/2020 15:42 [facility] % CD4 34 31 - 64 % 09/19/2020 15:42 [facility] % CD8 54(H) 9 - 39 % 09/19/2020 15:42 [facility] Absolute CD3 2,377 840-2,669 Cells/uL 09/19/2020 15:42 [facility] Absolute CD4 916 488-1,734 Cells/uL 09/19/2020 15:42 [facility] Absolute CD8 1,448(H) 154-1,097 Cells/uL 09/19/2020 15:42 [facility] 06/27 Ratio 0.63(L) >=0.90 09/19/2020 15:42 [facility] Blood VENOUS BLOOD / Unknown 09/18/2020 8:40 EDT 09/18/2020 15:56 EDT Provider Outr Resulting Lab IMMUNOLOGY A ND SEROLOGY ORDERABLES [facility] [address] [place] [address] documented in this encounter Visit Diagnoses Not on filedocumented in this encounter Care Teams Cardiovascular Technician Relationship Specialty Start Date End Date Isai Gracia MD [address] [place] [address] PCP - General 07/03/21 documented as of this encounter
--- OUTSIDE RECORDS SUMMARY | 2023-12-31 06:29 | XMS_ITS | Encounter Summary ---
Author Organization [facility] Address [address] [place] [address] Care Team Providers Care Teaching Music Lessons Name Role Phone Isai Gracia MD Primary Care Provider [phone] Encounter Details Date Type Department Care Team (Late st Contact Info) Description 09/03/2020 Lab Requisition [facility] Pathology & Laboratory Medicine - [facility] [address] [place], [place] [address] Outr Resulting Lab, Provider Social History Tobacco [...] Contact Info) Description 01/10/2024 10:00 EDT Telemedicine [facility] Infectious Disease - [address] [address] Frantz Geronimo, DO 111 [facility], [address] [place] [phone] documented as of this encounter Procedures Procedure Name Priority Date/Time Associated Diagnosis Comments HEPATITIS C AB W REFLEX TO HCV RNA BY PCR Routine 09/02/2020 15:23 EDT HEPATITIS A TOTAL ANTIBODY W REFLEX Routine 09/02/2020 15:23 EDT HEPATITIS B SURFACE ANTIBODY Routine 09/02/2020 15:23 EDT HEPATITIS B SURFACE ANTIGEN Routine 09/02/2020 15:23 EDT documented in this encounter Results * HEPATITIS B SURFACE ANTIBODY (09/02/2020 15:23 EDT) Hep B Surface Ab, Quantitative <3.1 See Note mIU/mL 09/04/2020 8:48 EDT [facility] Comment: Reference Range for Hep B Surface Ab, Quant: Positive: >= 10.0 mIU/mL Negative: ??< 10.0 mIU/mL Patient is presumed to not be immune to infection with Hepatitis B Virus. Hep B Surface Ab, Qualitative Negative See Note 09/04/2020 8:48 EDT [facility] Comment: Reference Range for Hep B Surface Ab, Qual: Unvaccinated: ??Negative Vaccinated: ??Positive Blood VENOUS BLOOD / Unknown 09/02/2020 15:23 EDT 09/03/2020 16:10 EDT Provider Outr Resulting Lab CHEMISTRY & BLOOD GAS ORDERABLES Performing Organization Address [facility] Co de Phone Number [facility] [address] [place] [address] * HEPATITIS B SURFACE ANTIGEN (09/02/2020 15:23 EDT) Hep B Surface Ag Negative Negative 09/04/2020 8:56 EDT [facility] Blood VENOUS BLOOD / Unknown 09/02/2020 15:23 EDT 09/03/2020 16:10 EDT Provider Outr Resulting Lab CHEMISTRY & BLOOD GAS ORDERABLES Performing Organization Address [facility]/ZIP Co de Phone Number [facility] [address] [place] [address] * HEPATITIS C AB W REFLEX TO HCV RNA BY PCR (09/02/2020 15:23 EDT) Hep C Antibody Negative Negative 09/04/2020 10:04 EDT [facility] Blood VENOUS BLOOD / Unknown 09/02/2020 15:23 EDT 09/03/2020 16:10 EDT Provider Outr Resulting Lab CHEMISTRY & BLOOD GAS ORDERABLES Performing Organization Address City/[facility]/ZIP Co de Phone Number [facility] [address] [place] [address] * HEPATITIS A TOTAL ANTIBODY W REFLEX (09/02/2020 15:23 EDT) Hepatitis A Antibody, Total Negative Negative 09/04/2020 10:14 EDT [facility] Blood VENOUS BLOOD / Unknown 09/02/2020 15:23 EDT 09/03/2020 16:10 EDT Narrative [facility] - 09/04/2020 10:14 EDT The result of this assay can be falsely elevated (Positive) due to the consumption of Biotin. Provider Outr Resulting Lab CHEMISTRY & BLOOD GAS ORDERABLES Performing Organization Address City/[facility]/ZIP Co de Phone Number [facility] [address] [place] [address] documented in this encounter Visit Diagnoses Not on filedocumented in this encounter Care Teams Teaching Music Lessons Relationship Specialty Start Date End Date Isai Gracia MD [address] [place] [address] PCP - General 07/03/21 documented as of this encounter
--- OUTSIDE RECORDS SUMMARY | 2023-12-31 06:29 | XMS_ITS | Encounter Summary ---
Author Organization [facility] Address [address] [place] [address] Care Team Providers Care Grinding Operator Name Role Phone Isai Gracia MD Primary Care Provider [phone] Encounter Details Date Type Department Care Team (Late st Contact Info) Description 07/07/2021 Lab Requisition [facility] Pathology & Laboratory Medicine - [facility] [address] [place], [place] [address] Outr Resulting Lab, Provider Social History Tobacco [...] Contact Info) Description 01/10/2024 10:00 EDT Telemedicine [facility] Infectious Disease - [address] [address] Frantz Geronimo, DO 111 [facility], [address] [place] [phone] documented as of this encounter Procedures Procedure Name Priority Date/Time Associated Diagnosis Comments HIV 1 RNA QUANTITATION Routine 07/07/2021 13:40 EDT documented in this encounter Results * (ABNORMAL) HIV 1 RNA QUANTITATION (07/07/2021 13:40 EDT) HIV RNA Detection, Qual Detected( A) Undetected copies/mL 07/10/2021 11:[address] [facility] HIV 1 RNA Quant 52(H) Undetected copies/mL 07/10/2021 11:[address] [facility] Blood VENOUS BLOOD / Unknown 07/07/2021 13:40 EDT 07/07/2021 20:[address] [facility] - 07/10/2021 11:07 EDT The quantification range of this assay is 20 IU/mL to 10,000,000 IU/mL. ??Testing was performed using the Earnest HIV test (Luis [employer] with the earnest [employer] System. Provider Outr Resulting Lab CHEMISTRY & BLOOD GAS ORDERABLES [facility] [address] [place] [address] documented in this encounter Visit Diagnoses Not on filedocumented in this encounter Care Teams Grinding Operator Relationship Specialty Start Date End Date Is[place] [address] PCP - General 07/03/21 documented as of this encounter
--- OUTSIDE RECORDS SUMMARY | 2023-12-31 06:29 | XMS_ITS | Encounter Summary ---
Author Organization [facility] Address [address] [place] [address] Care Team Providers Care Development Coordinator Name Role Phone Isai Gracia MD Primary Care Provider [phone] Encounter Details Date Type Department Care Team (Late st Contact Info) Description 05/01/2022 Lab Requisition [facility] Pathology & Laboratory Medicine - [facility] [address] [place], [place] [address] Outr Resulting Lab, Provider Social History Tobacco [...] Contact Info) Description 01/10/2024 10:00 EDT Telemedicine [facility] Infectious Disease - [address] [address] Frantz Geronimo, DO [address] [facility], [address] [place] [phone] documented as of this encounter Procedures Procedure Name Priority Date/Time Associated Diagnosis Comments T CELL SUBSETS Routine 05/01/2022 14:43 EST HIV 1 RNA QUANTITATION Routine 05/01/2022 14:43 EST documented in this encounter Results * HIV 1 RNA QUANTITATION (05/01/2022 14:43 EST) [facility] HIV RNA Detection, Qual Undetected Undetected copies/mL 05/04/2022 13:[address] [facility] Blood VENOUS BLOOD / Unknown 05/01/2022 14:43 EST 05/01/2022 21:20 EST Narrative [facility] - 05/04/2022 13:33 EST The quantification range of this assay is 20 IU/mL to 10,000,000 IU/mL. ??Testing was performed using the Earnest HIV test (Luis [employer] with the earnest [employer]0 System. Provider Outr Resulting Lab CHEMISTRY & BLOOD GAS ORDERABLES Performing Organization Address [facility] Co de Phone Number [facility] [address] [place] [phone] * (ABNORMAL) T CELL SUBSETS (05/01/2022 14:43 EST) [facility] % CD3 78 56 - 84 % 05/04/2022 10:27 [facility] % CD4 44 31 - 64 % 05/04/2022 10:27 [facility] % CD8 35 9 - 39 % 05/04/2022 10:27 [facility] Absolute CD3 2,703(H) 840 - 2,669 Cells/uL 05/04/2022 10:27 [facility] Absolute CD4 1,519 488 - 1,734 Cells/uL 05/04/2022 10:27 [facility] Absolute CD8 1,200(H) 154 - 1,097 Cells/uL 05/04/2022 10:27 [facility] 4/8 Ratio 1.27 >=0.90 05/04/2022 10:27 [facility] Blood VENOUS BLOOD / Unknown 05/01/2022 14:43 EST 05/02/2022 11:08 EST Provider Outr Resulting Lab IMMUNOLOGY A ND SEROLOGY ORDERABLES Performing Organization Address [facility]/ZIP Co de Phone Number [facility] [address] [place] [address] documented in this encounter Visit Diagnoses Not on filedocumented in this encounter Care Teams Development Coordinator Relationship Specialty Start Date End Date Isai Gracia MD [address] [place] [place] [address] PCP - General 07/03/21 documented as of this encounter
--- OUTSIDE RECORDS SUMMARY | 2023-12-31 06:29 | XMS_ITS | Referral Summary ---
Author Organization [facility] Address [address] [place] [address] Care Team Providers Care Caustic Room Attendant Name Role Phone Isai Gracia MD Primary Care Provider [phone] Medications Medication Sig Dispensed Refills Start Date End Date Status bictegravir-emtricitab ine-tenofovir alafenamide (BIKTARVY) 50-200-25 mg per tablet Take 1 Tablet by mouth daily. 30 Tablet 5 09/29/2021 Active Social History Tobacco Use Types Packs/Day Years Used Date Smoking Tobacco: Never Assessed Sex and Gender Information Value Date Recorded Sex Assigned at Male 10/07/2020 12:27 EDT Gender Identity Male 07/03/2021 8:35 EDT Sexual Orientation Not on file Plan of Treatment Upcoming Encounters Date Type Department Care Team (Late st Contact Info) Description 01/10/2024 10:00 EDT Telemedicine [facility] Infectious Disease - [address] [phone] Frantz Geronimo, DO [address] [facility] [address] [place] [address] Procedures Procedure Name Priority Date/Time Associated Diagnosis Comments HEPATITIS C AB W REFLEX TO HCV RNA BY PCR Routine 09/02/2020 15:23 EDT from Last 3 Months or Most Recently Relevant to Health Maintenance Results * HEPATITIS C AB W REFLEX TO HCV RNA BY PCR (09/02/2020 15:23 EDT) Hep C Antibody Negative Negative 09/04/2020 10:04 EDT [facility] Blood VENOUS BLOOD / Unknown 09/02/2020 15:23 EDT 09/03/2020 16:10 EDT Provider Outr Resulting Lab CHEMISTRY & BLOOD GAS ORDERABLES [facility] [address] [place] [address] from Last 3 Months or Most Recently Relevant to Health Maintenance Care Teams Caustic Room Attendant Relationship Specialty Start Date End Date Isai Gracia MD [address] [place] [address] PCP - General 07/03/21
--- OUTSIDE RECORDS SUMMARY | 2023-12-31 06:29 | XMS_ITS | Encounter Summary ---
Author Organization [facility] Address [address] [place] [address] Care Team Providers Care Expert Witness Name Role Phone Unavailable Primary Care Provider Unavailabl e Reason for Visit * Reason Comments Follow-up Encounter Details Date Type Department Care Team (Late st Contact Info) Description 10/16/2020 13:30 EDT Telemedicine [facility] Infectious Disease - [address] [address] Frantz Geronimo, DO [address] [facility], [address] [place] [address] Symptomatic HIV infection ([facility]) (Primary Dx) Social History Tobacco Use Types Packs/Day Years Used Date Smoking Tobacco: Never Assessed Sex and Gender Information Value Date Recorded Sex Assigned at Male 10/07/2020 12:27 EDT Gender Identity Male 07/03/2021 8:35 EDT Sexual Orientation Not on file documented as of this encounter Progress Notes * Frantz Geronimo, - 10/16/2020 1330 EDT I spent a [...] presented to an urgent care in [facility] to restart PrEP. His last known HIV negative test dates back to summer 2019 per his report while he was living in [place]. His initial panel of labs collected 18 September 2020 shows an HIV genotype with no relevant mutations, his initial CD4 count is 916, his initial viral load is 9563. Not on ART yet. Pt developed long lasting URI symptoms in June 2020 with sore throat, NS, fevers and also had cellulitis in abdomen while living in [place]. Then came to [place] in July to visit family (dad had recently )and has now moved in with is mom. Sx of URI improved in July. He went to urgent care in August to get back on PrEP when a HIV test was performed and was positive so pt referred to [facility]. Pt thinks he got infected in [place], Pt very well informed about HIV and had been on PrEP while living in [place] on and off since 2014 (only off for a about one month, two separate times) until he lost his insurance in Feb 2019 time, came off PrEP and soon after, moved from [place] to [place]. While he was on PrEP, patient admits [...] that where he got infected) Apr 2020. MSM. Mom and sister are both aware of the diagnosis and are very supportive. Father recently. 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 Travel:Born in [place] [place]. Pt moved to [place] after highschool and has lived in [place] for work. 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 Plans to go back outon he road at some point. Animal exposure: No pets Food: No raw milk Other comments: Routine childhood vaccines as child in [place]. Social History Socioeconomic History ??? Marital status: [...] Gatherings with Friends and Family: ??? Attends Taoism Services: ??? Active Member of Clubs or [...] visit. - PCM is Dr Gracia at [facility]. - Destiny will help connect patient with [facility] to help establish insurance. Once that is okay, will go ahead and prescribe Biktarvy. We will [...] Colonoscopy: Colonoscopy as a teenager while in [facility]. Unclear the findings. - Immunizations: COVID July-August 2020. No flu vaccine. Destiny will try to get baseline vaccine records from PCM 3) GERD, much improved with the PPI 4) Anxiety, much improved since he was started on Zoloft by his new PCM. It has been a pleasure seeing Mr. Appiah in clinic today. Frantz Geronimo DO Pager [phone] Infectious Diseases Currently employed: No Adherence counseling: [...] Info) Description 01/10/2024 10:00 EDT Telemedicine [facility] Infectious Disease - [address] [address] Frantz Geronimo DO [address] [place] [address], [facility] [address] [place] [address] documented as of this encounter Visit Diagnoses Diagnosis Symptomatic HIV infection ([facility])- Primary Human immunodeficiency virus [HIV] disease documented in this encounter
--- OUTSIDE RECORDS SUMMARY | 2023-12-31 06:29 | XMS_ITS | Encounter Summary ---
Author Organization [facility] Address [address] [place] [address] Care Team Providers Care Principal Electrical Engineer Name Role Phone Isai Gracia MD Primary Care Provider [phone] Encounter Details Date Type Department Care Team (Late st Contact Info) Description 10/07/[address] [facility] Pathology & Laboratory Medicine - [facility] [address] [place], [place] [id number] Outr Resulting Lab, Provider Social History Tobacco [...] Contact Info) Description 01/10/2024 10:[address] [facility] Infectious Disease - [address] [address] Frantz Geronimo, DO [address] [facility], [address] [place] [id number] documented as of this encounter Procedures Procedure Name Priority Date/Time Associated Diagnosis Comments T CELL SUBSETS Routine 10/07/2021 12:55 EDT HIV 1 RNA QUANTITATION Routine 10/07/2021 12:55 EDT documented in this encounter Results * (ABNORMAL) HIV 1 RNA QUANTITATION (10/07/2021 12:55 EDT) [facility] HIV RNA Detection, Qual Detected( A) Undetected copies/mL 10/09/2021 11:41 EDT [facility] HIV 1 RNA Quant <20(H) Undetected copies/mL 10/09/2021 11:41 EDT [facility] Comment:HIV-1 RNA level is < 20 copies/mL. This assay cannot accurately quantify HIV-1RNA below this level. Blood VENOUS BLOOD / Unknown 10/07/2021 12:55 EDT 10/07/2021 21:14 EDT [facility] - 10/09/2021 11:41 EDT The quantification range of this assay is 20 IU/mL to 10,000,000 IU/mL. ??Testing was performed using the Earnest HIV test ([employer] with the earnest Cherrish0 System. Provider Outr Resulting Lab CHEMISTRY & BLOOD GAS ORDERABLES [facility] [address] [place] [address] * T CELL SUBSETS (10/07/2021 12:55 EDT) [facility] % CD3 80 56 - 84 % 10/08/2021 15:52 [facility] % CD4 47 31 - 64 % 10/08/2021 15:52 [facility] % CD8 33 9 - 39 % 10/08/2021 15:52 [facility] Absolute CD3 1,827 840-2,669 Cells/uL 10/08/2021 15:52 [facility] Absolute CD4 1,070 488-1,734 Cells/uL 10/08/2021 15:52 [facility] Absolute CD8 763 154-1,097 Cells/uL 10/08/2021 15:52 [facility] 4/8 Ratio 1.40 >=0.90 10/08/2021 15:52 [facility] Blood VENOUS BLOOD / Unknown 10/07/2021 12:55 EDT 10/07/2021 21:43 EDT Provider Outr Resulting Lab IMMUNOLOGY A ND SEROLOGY ORDERABLES [facility] [address] [place] [address] documented in this encounter Visit Diagnoses Not on filedocumented in this encounter Care Teams Principal Electrical Engineer Relationship Specialty Start Date End Date Isai Gracia MD [address] [place] [address] PCP - General 07/03/21 documented as of this encounter
--- OUTSIDE RECORDS SUMMARY | 2023-12-31 06:29 | XMS_ITS | Data Portability ---
Author Organization [place] - [facility] Address [address] [place] [address] Assessment Encounter Date Assessment Date Assessment LastModified by Organization Details LastModified Time 06/08/2023 06/08/2023 Note prepared by Shimon Segura, medical student at [employer] Patient seen and evaluated by me with MS Taylor Segura. I performed the examination and reviewed the history as above. I agree with assessment and recommendations as below. The AST is a significant increase. Will continue to monitor and rescreen as below. -Herbert Gracia MD Not available 06/09/2023 08:04:21 Plan of Treatment Reminders Order Date Submit Date Provider Last Modified By Organization Details Last Modified Time Details Appointments Office Visit 40 2023 10:00A M Chery Chapin Not available Not available Not available Lab None recorded . Referral None recorded . Procedures None recorded . Surgeries None recorded . Imaging None recorded . Medication Orders None recorded . Patient TargetsNo targets recorded. Patient Instructions Encounter Date Encounter Id Patient Instructions Last Modified By Organization Details Last Modified Time 06/29/2023 [id number] follow up with ENT as planned you can use OTC films on the wart on the foot. Not available 06/29/2023 15:21:54 Reason for Referral None Reported. Results Created Date Observation Date Name Description Value Unit Range Abnormal Flag Note LastModifiedBy Organization Detail LastModifiedTime 05/24/1905/24/2023 COMPL ETE BLOOD COUNT W/DIF F WBC 6.34 10_3/ uL 4.4-10 .8 normal Not Available [facility] [address] [facility] [place], [address] 05/24/2023 10:38:31 05/24/19 24 05/24/2023 COMPL ETE BLOOD COUNT W/DIF F RBC 4.31 10_6/ uL 4.36-5 .78 low Not Available [address] [place], [address] 05/24/2023 10:38:31 05/24/19 24 05/24/2023 COMPL ETE BLOOD COUNT W/DIF F HGB 15.0 g/dL 13.5-1 7.5 normal Not Available [address] [place], [address] 05/24/2023 10:38:31 05/24/19 24 05/24/2023 COMPL ETE BLOOD COUNT W/DIF F HCT 42.3 % 40.0-5 0.0 normal Not Available [address] [place], [address] 05/24/2023 10:38:31 05/24/19 24 05/24/2023 COMPL ETE BLOOD COUNT W/DIF F MCV 98 fL 80-95 high Not Available [address] [place], [address] 05/24/2023 10:38:31 05/24/19 24 05/24/2023 COMPL ETE BLOOD COUNT W/DIF F MCH 34.8 pg 27.0-3 3.0 high Not Available [address] [place], [address] 05/24/2023 10:38:31 05/24/19 24 05/24/2023 COMPL ETE BLOOD COUNT W/DIF F MCHC 35.5 % 32.0-3 6.0 normal Not Available [address] [place], [address] 05/24/2023 10:38:31 05/24/19 24 05/24/2023 COMPL ETE BLOOD COUNT W/DIF F RDW 12.9 % 11.8-1 4.1 normal Not Available [address] [place], [address] 05/24/2023 10:38:31 05/24/19 24 05/24/2023 COMPL ETE BLOOD COUNT W/DIF F platelet count 248 10_3/ uL 130-40 0 normal Not Available [address] [place], [address] 05/24/2023 10:38:31 05/24/19 24 05/24/2023 COMPL ETE BLOOD COUNT W/DIF F MPV 9.2 fL 8.0-11 .0 normal Not Available [address] [place], [address] 05/24/2023 10:38:31 05/24/19 24 05/24/2023 COMPL ETE BLOOD COUNT W/DIF F neutrophils % 48.4 Not Available [address] [place], [address] 05/24/2023 10:38:31 05/24/19 24 05/24/2023 COMPL ETE BLOOD COUNT W/DIF F lymphocytes % 35.2 Not Available [address] [place], [address] 05/24/2023 10:38:31 05/24/19 24 05/24/2023 COMPL ETE BLOOD COUNT W/DIF F monocytes % 12.9 Not Available [address] [facility] [place], [address] 05/24/2023 10:38:31 05/24/19 24 05/24/2023 COMPL ETE BLOOD COUNT W/DIF F eosinophils % 2.4 Not Available [address] [place], [address] 05/24/2023 10:38:31 05/24/19 24 05/24/2023 COMPL ETE BLOOD COUNT W/DIF F basophils % 0.9 Not Available [address] [place], [address] 05/24/2023 10:38:31 05/24/19 24 05/24/2023 COMPL ETE BLOOD COUNT W/DIF F immature grans % 0.2 Not Available [address] [place], [address] 05/24/2023 10:38:31 05/24/19 24 05/24/2023 COMPL ETE BLOOD COUNT W/DIF F nucleated RBC 0.0 % 0.0-0. 3 normal Not Available [address], [address] 05/24/2023 10:38:31 05/24/19 24 05/24/2023 COMPL ETE BLOOD COUNT W/DIF F absolute neutrophil count 3.07 10_3/ uL 1.2-6. 7 normal Not Available [address] [place], [address] 05/24/2023 10:38:31 05/24/19 24 05/24/2023 COMPL ETE BLOOD COUNT W/DIF F absolute lymphocyte count 2.23 10_3/ uL 1.2-3. 4 normal Not Available [address], [address] 05/24/2023 10:38:31 05/24/19 24 05/24/2023 COMPL ETE BLOOD COUNT W/DIF F absolute monocyte count 0.82 10_3/ uL 0.1-0. 8 high Not Available [address] [place], [address] 05/24/2023 10:38:31 05/24/19 24 05/24/2023 COMPL ETE BLOOD COUNT W/DIF F absolute eosinophil count 0.15 10_3/ uL 0.0-0. 7 normal Not Available [address] [place], [address] 05/24/2023 10:38:31 05/24/19 24 05/24/2023 COMPL ETE BLOOD COUNT W/DIF F absolute basophil count 0.06 10_3/ uL 0.0-0. 2 normal Not Available [address] [place], [address] 05/24/2023 10:38:31 05/24/19 24 05/24/2023 COMPR EHENS LOGAN METAB OLIC PANEL calcium 9.1 mg/dL 8.5-10 .1 normal Not Available [address], [address] 05/24/2023 11:05:34 05/24/19 24 05/24/2023 COMPR EHENS LOGAN METAB OLIC PANEL glucose 89 mg/dL 74-106 normal Not Available Blake rosenberg [address] [place], [address] 05/24/2023 11:05:34 05/24/19 24 05/24/2023 COMPR EHENS LOGAN METAB OLIC PANEL BUN 14 mg/dL 7-18 normal Not Available Blake rosenberg [address] [place], [address] 05/24/2023 11:05:34 05/24/19 24 05/24/2023 COMPR EHENS LOGAN METAB OLIC PANEL creatinine 1.2 mg/dL 0.70-1 .30 normal Not Available [address] [place], [address] 05/24/2023 11:05:34 05/24/19 24 05/24/2023 COMPR EHENS LOGAN METAB OLIC PANEL estimated GFR 78.89 mL/min /1.73m 2 The eGFR is calcu lated from a serum creat inine using the CKD-E PI 2020 equat ion. Other varia bles requi red for the equat ion are gende r and age; this equat ion does not inclu de a race coeff icien t. This equat ion has simil ar overa ll perfo rmanc e to previ ous equat ions excep t value s may diffe r, in parti cular , in patie nts with highe r value s of eGFR and young er-ag ed adult s. Not Available [address] [place], [address] 05/24/2023 11:05:34 05/24/19 24 05/24/2023 COMPR EHENS LOGAN METAB OLIC PANEL total protein 6.9 g/dL 6.4-8. 2 normal Not Available [address], [address] 05/24/2023 11:05:34 05/24/19 24 05/24/2023 COMPR EHENS LOGAN METAB OLIC PANEL albumin 3.6 g/dL 3.4-5. 0 normal Not Available [address] [place], [address] 05/24/2023 11:05:34 05/24/19 24 05/24/2023 COMPR EHENS LOGAN METAB OLIC PANEL bilirubin, total 0.6 mg/dL 0.2-1. 0 normal Not Available [address], [address] 05/24/2023 11:05:34 05/24/19 24 05/24/2023 COMPR EHENS LOGAN METAB OLIC PANEL alk phos 73 U/L 46-116 normal Not Available [address] [place], [address] 05/24/2023 11:05:34 05/24/19 24 05/24/2023 COMPR EHENS LOGAN METAB OLIC PANEL sodium 138 mmol/ L 136-14 5 normal Not Available [address], [address] 05/24/2023 11:05:34 05/24/19 24 05/24/2023 COMPR EHENS LOGAN METAB OLIC PANEL potassium 3.7 mmol/ L 3.5-5. 1 normal Not Available [address], [address] 05/24/2023 11:05:34 05/24/19 24 05/24/2023 COMPR EHENS LOGAN METAB OLIC PANEL chloride 105 mmol/ L 98-107 normal Not Available [address], [address] 05/24/2023 11:05:34 05/24/19 24 05/24/2023 COMPR EHENS LOGAN METAB OLIC PANEL CO2 22.2 mmol/ L 21.0-3 2.0 normal Not Available [address], [address] 05/24/2023 11:05:34 05/24/19 24 05/24/2023 COMPR EHENS LOGAN METAB OLIC PANEL anion gap 10.8 mmol/ L 3-11 normal Not Available [address] [place], [address] 05/24/2023 11:05:34 05/24/19 24 05/24/2023 COMPR EHENS LOGAN METAB OLIC PANEL AST 68 U/L 15-37 high Not Available Blake [address] [place], [address] 05/24/2023 11:05:34 05/24/19 24 05/24/2023 COMPR EHENS LOGAN METAB OLIC PANEL ALT 30 U/L 16-63 normal Not Available Blake rosenberg [address] [place], [address] 05/24/2023 11:05:34 05/24/19 24 05/25/2023 T-CAIT L SUBSE TS cd3 84 % 56-84 Not Available Blake rosenberg [address] [place], [address] 05/27/2023 15:55:51 05/24/19 24 05/25/2023 T-CAIT L SUBSE TS cd4 47 % 31-64 Not Available Blake rosenberg [address] [place], [address] 05/27/2023 15:55:51 05/24/19 24 05/25/2023 T-CAIT L SUBSE TS cd8 38 % 9-39 Not Available Blake rosenberg [address] [place], [address] 05/27/2023 15:55:51 05/24/19 24 05/25/2023 T-CAIT L SUBSE TS absolute cd3 2091 cells /uL 840-26 69 Not Available [address] [place], [address] 05/27/2023 15:55:51 05/24/19 24 05/25/2023 T-CAIT L SUBSE TS absolute cd4 1157 cells /uL 488-17 34 Not Available [address] [place], [address] 05/27/2023 15:55:51 05/24/19 24 05/25/2023 T-CAIT L SUBSE TS absolute cd8 950 cells /uL 154-10 97 Not Available [address] [place], [address] 05/27/2023 15:55:51 05/24/19 24 05/25/2023 T-CAIT L SUBSE TS 4/8 ratio 1.22 >=0.90 Test perfo rmed or refer red by [facility] [address], [place] [address] Not Available [address] [place], [address] 05/27/2023 15:55:51 05/24/19 24 05/27/2023 HIV 1 RNA QUANT ITATI ON HIV 1 RNA qualitative Undete cted copie s/mL undete cted The quant ifica tion range of this assay is 20 IU/mL to 10,00 0,000 IU/mL . Testadriano alva was perfo rmed using the Susan HIV test (Raad herrera [employer] with the susan VISEO0 [employer] m. Test perfo rmed or refer red by [facility] [address] [place] [address] Not Available [address] [place], [address] 05/27/2023 15:55:52 04/14/19 24 04/14/2023 [facility] note COMPRE HENSIV E CARE CLINIC NOTE PATIEN T NAME: Alexis Appiah UNIT #: [id number] ORDERI NG PROVID ER: ACCOUN T #: [id number] PRIMAR Y CARE PROVID ER: HERBERT GRACIA MD/T JR OF SERVI CE: : 1984 [facility] Note Note: [facility] [address] [place], [place]??? [address] [facility] Visit for Medica l Follow Up Name:? ?? Theodore Appiah? Medica l Record [id number] Date of : ??? 1984? Primar y Care Provid er:??? Herbert Gracia MD Date of Servic e: 2023 SUBJEC TIVE CC/HPI : ???Rose kim is here for F/U. he has been on the road perfor greta in [facility] and is home for a few weeks. He has been well during this time. He has not missed any of his HIV medica tion. He is due for the 2nd Mening itis vaccin e and to start the Zoster vaccin e due to a H/O it. He was seen in the ER and found to have inflam matory bowel at the time on CT scan. There was no eviden ce of renal calcul i which he though t it might be. He has not had a flare since. He has improv ed his diet, restri cting calori es and intent ionall y lost 26 #s. he feel better with the off. [facility] in the second week in Apr and return ing for some time in May. ROS Consti tution al: Good energy , appeti te, sleep. Weight is intent ionall y down and stable . Skin: Denies rash Head: Denies trauma , head pain Eyes: Denies visual distur bance, has readin g glasse s Ear/No se/Thr oat: Negati ve Mouth/ Teeth: UTD w dental Neck: No pain or stiffn ess CV: Denies chest pain, pressu re, palpit ations Respir atory: Denies cough, dyspne a, hemopt ysis GI: No N/V/D/ C or rectal bleedi ng : Negati ve Muscul oskele demar: Denies joint or back pain Endocr ine: No polyur ia, polydi psia; heat or cold intole maru Lympha tic: Has not noted any enlarg ed nodes Hemato logic: No unusua l bleedi ng, bruisi ng Immuno logic: CD4 count has never been below 200, no risk for OI Psychi atric: Denies Anxiet y, Depres daniel, SI/HI Allerg ies/Se nsitiv ities: NKDA Curren t Medica tions: Biktar vy 50-200 -25 mg tab daily Wellbu alesha SR 150mg bid Zoloft 50 mg pantop razole 40 mg daily Medica l / Surgic al Histor y Update : Dx in Jan w inflam matory bowel Psychi atric Histor y Update : Stable depres daniel on curren t medica tions Social Histor y Update : Travel ing for work and doing very well. Employ ment:? ?? Self-e mploye d [employer] nce: [place] t Substa nce Use: ? Tobacc o: quit ? ETOH: rare ? Drug Use: None Family Histor y Update : ???Not adi new Immuni zation Needed ? 2nd Mening ococca l, 1st Zoster recomb ivax (had Zoster ), will need 3rd [facility] nance: xx OBJECT LOGAN Height : Weight :Temp: 98.4, Pulse: 72, Respir ations : 14, Blood Pressu re:132 /80 Genera l: ???WDW NL, AINAD, On time for appoin tment Skin: ???W/D , no rash or lesion s noted Head: ???NCA T Eyes: non icteri c Ears, Nose, Mouth: Neg Neck: Supple , Thyroi d non palp, no swelli ng/cre pitus Chest: Full, equal expans ion, Lungs clear on all lobes CV: RRR, No MCRG, extrem ity pulses 2/4 w symmet ry Abdome n: NABS, ND, NT, No OGM or masses felt, No Bruits Neuro: Gait strong and steady , No tics or tremor Lympha tic: No palpab le enlarg ed nodes Psychi atric: - appear ance: well groome d, unkemp t, bizarr e, inappr opriat e, flambo yant, stated age [older /young er] - eye contac t: good, fair, poor, intrus logan, none - attitu de: mendez ative, guarde d, suspic ious, bellig erent, apathe tic, withdr awn, helple ss, hopele ss - speech : normal , slow, rapid, soft, loud, pressu red, slurre d, echola rosa - affect : approp riate, restri cted, blunte d, flat, expans logan, labile , incong ruent - mood: euthym ic, depres sed, anxiou s, irrita ble, angry, tearfu l, euphor ic - memory : short term intact , fci intact , short term impair ed, fci impair ed - self-p ercept ion: WNL, grandi ose, aggran dizing , dissoc iated, depers onaliz ed, self-d epreca ting - motor activi ty: normal , restle ss, agitat ed, retard ed, abnorm al moveme nts - orient ation: intact , impair ed [perso n/plac e/thin g], confus ed - attent ion: intact , distra cted, racing though ts - though t proces s: logica l, goal direct ed, tangen tial, circum stanti al, loose, racing though ts, though t blocki ng - though t conten t: normal , delusi ons, parano ia, ideas of refere nce, paucit y of conten t, cognit logan distor tions - percep tions: WNL, halluc inatio ns [audit ory/vi sual/t actile /olfac tory], illusi ons - judgem ent: intact , impair ed minima lly, impair ed modera tely, impair ed severe ly - insigh t: excell ent, good, fair, poor ASSESS MENT/P EUGENIO : HIV on high risk fci medica tion - stable MD visit schedu led: End of Apr or May Lab work ordere d: ???Due in the May/ June time frame. He is given a lab slip and will get them done when he is in town in May Provid er of Care:? ?? Destiny Jhaveri, KAY, STAINED GLASS ARTIST CC: ------ ------ ------ ------ ------ ------ ------ ------ ------ ------ ------ ------ ------ ------ ------ ------ ---- -- Dictat ed by: SAMINA QUINTANA, DESTINY Dictat ed:: [id number] Transc ribed Date: Transc ribed Time: 1234 By: DANN This is privil eged, confid ential inform ation, intend ed only for the provid er named. Any use or distri bution by any person other than this provid er is strict ly prohib ited. If you receiv e this report in error, please notify us immedi hebertly at [phone] and return the origin al report to us at the addres s above. Thank you. [email or web address] [facility] [address], [place], [address] 04/19/2023 08:44:36 04/28/19 24 04/28/2023 [facility] note COMPRE HENSIV E CARE CLINIC NOTE CIARAN T NAME: Alexis Appiah UNIT #: [id number] ORDERI NG PROVID ER: ACCOUN T #: [id number] PRIMAR Y CARE PROVID ER: HERBERT GRACIA MD DATE/T JR OF SERVI CE: : 1984 Compre [facility] Clinic Note Note: Theodore is here today for the third in the series of hepati tis A B vaccin e and for a med check. 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 He will be [place] and [place] ing to [place]. He has a large supply of his HIV medica tion, Biktar vy, so he will not run out. He does have a way to have a prescr iption mailed to him from home if he is delaye d in return ing to [place] . He has not missed any doses of this medica tion or the other medica tions as RXd by his PCP. The admini strati on of the 1st in the hepati tis A B vaccin e was on and the 2nd was given on . Theodore was unable to return in 6 months from the date of the and had other obliga tions due to work that preven cathy him from gettin g the until now. Of note, there was an entry in his chart that he has a H/O Herpes Zoster and in going over this with him, HE does not have a H/O this but rather there is a family histor y with his grandf ather having had a number of outbre aks during his lifeti meRegine Jaimes was given the Shingr ix vaccin e #1 this past y on the basis of this altere d histor y. ROS: He denies fever, chill, night sweats , URI or GI illnes s sympto ms and no one in his home or [place] family and friend s have been ill recent ly. No new medica tions OBJ: T 98.2, P 80, R 14, BP 132/82 AINAD, AAOx3 Sclera - nonict billy Skin- W/D - free of rash Lungs- clear CV- RRR No MCRG A/P: HIV - non AIDS Contin ue Biktar vy as RXd withou t missin g doses. Has refill s. Lab work due in May with F/U w [facility] Charity [facility] admini tered IM in the [place] w/o incide nt. [employer] Lot# [id number], exp; date 026 Destiny Jhaveri NP CC: ------ ------ ------ ------ ------ ------ ------ ------ ------ ------ ------ ------ ------ ------ ------ ------ ---- -- Dictat ed by: SAMINA QUINTANA DESTINY Dictat ed:: 1214 1231 Transc ribed Date: Transc ribed Time: 1214 By: DANN This is privil eged, confid ential inform ation, intend ed only for the provid er named. Any use or distri bution by any person other than this provid er is strict ly prohib ited. If you receiv e this report in error, please notify us immmerlyi kathy at [phone] and return the origin al report to us at the addres s above. Thank you. [email or web address] [facility] [address], [place], [address] 04/28/2023 15:41:52 12/06/19 24 10/12/2020 imagi ng/di agnos tic resul t No observ ation record ed. [email or web address] Not Available 12/05 04:14:47 12/06/19 24 10/12/2020 imagi ng/di agnos tic resul t No observ ation record ed. [email or web address] Not Available 12/05 04:14:50 12/06/19 24 01/26/2023 imagi ng/di agnos tic resul t No observ ation record ed. [email or web address] Not Available 12/05 04:14:51 12/06/19 24 08/06/2022 imagi ng/di agnos tic resul t No observ ation record ed. [email or web address] Not Available 12/05 04:14:52 Result Notes None recorded. Problems Name Problem SNOMED Code Status Onset Date Resolution Date Notes Provider Name and Address Organization Details Recorded Time Adult health examinat ion Active 2020 Problem Code: Z00.00; Problem Code Type: ICD-10; Not Available [facility] 04:14:50 Human immunode ficiency virus infectio n 48242993 Active 202010/30/19 22 - Comments only - Herbert Gracia MD - ID notes reviewed . His VL is now <15 on Biktarvy , happy with this though he may want to transiti on to injectab le in the future. Problem Code: B20; Problem Code Type: ICD-10; Not Available [facility] 04:14:50 Nicotine dependen ce 26073324 Active 202009/17/19 23 - Comments only - Herbert Gracia MD - encouarg ed progress ion towards quitting . He doesn't want medicati on. Problem Code: F17.200; Problem Code Type: ICD-10; Not Available [facility] 04:14:50 Umbilica l granulom a [id number] Active 2020 Problem Code: P83.81; Problem Code Type: ICD-10; Not Available [facility] 3 04:14:51 History of psychiat quirino disorder 577604914 Active 2020 Problem Code: Z86.59; Problem Code Type: ICD-10; Not Available [facility] 3 04:14:51 Obesity 348756908 Active 2021 Problem Code: E66.9; Problem Code Type: ICD-10; Not Available [facility] 3 04:14:51 Essentia l hyperten daniel 86922188 Active 202103/30/19 22 - Comments only - Herbert Gracia MD - Discusse d. He would like to work on TLCs before medicati on, work on weight loss. Problem Code: I10; Problem Code Type: ICD-10; Not Available [facility] 3 04:14:51 Onychomy cosis due to dermatop hyte 727896060 Active 202110/30/19 22 - Comments only - Herbert Gracia MD - Previous ly confirme d and treated, so will not retest. Recent AST/ALT okay. No apparent interact ion with Biktarvy , sent 12 weeks terbinaf ine. Problem Code: B35.1; Problem Code Type: ICD-10; Not Available [facility] 3 04:14:51 Sensorin eural hearing loss 45467920 Active 202209/24/19 23 - Comments only - Grey English RPA - jennie valero ENT Problem Code: H90.5; Problem Code Type: ICD-10; Not Available [facility] 3 04:14:51 Gastroes ophageal reflux disease without esophagi tis 320651195 Completed 202009/16/2022 Problem Code: K21.9; Problem Code Type: ICD-10; Not Available [facility] 3 04:14:58 Anxiety disorder 298662596 Completed 202012/16/2022 10/30/19 22 - Comments only - Herbert Gracia MD - Improved with sertrali ne, but felt energy much lower on this, weight gain. Discusse d options of more stimulat ing SSRI, SNRI, or try regular bupropri on (even though not approved for TRISTEN, may help). Given he has taken this before for smoking and also given goal to loose weight, will start this in 24hr version Problem Code: F41.9; Problem Code Type: ICD-10; Not Available [facility] 3 04:14:59 Counseli ng Completed 202010/01/2020 Problem Code: Z71.89; Problem Code Type: ICD-10; Not Available [facility] 3 04:15:00 Therapeu tic drug monitori ng assay 73890234 Completed 202010/01/2020 Problem Code: Z51.81; Problem Code Type: ICD-10; Not Available [facility] 3 04:15:00 Non-supp urative otitis media 632384175 Completed 202209/23/2022 Problem Code: H65.90; Problem Code Type: ICD-10; Not Available [facility] 3 04:15:00 Body mass index 30+ - obesity 128374332 Completed 202112/16/2022 03/30/19 22 - Comments only - Herbert Gracia MD - Dramatic weight gain in the past few months. This has been in the setting of new HIV treatmen t and sertrali ne, but also signfiic ant life change and increase d sedentar y lifestyl e. He states he thinks it is lifestyl e and he will work on it. Will follow. He should have metoboli c labs on f/u with PI therapy as well Problem Code: Z68.31; Problem Code Type: ICD-10; Not Available [facility] 3 04:15:00 Dysphoni a [id number] Completed 202009/16/2022 Problem Code: R49.0; Problem Code Type: ICD-10; Not Available [facility] 3 04:15:01 Abnormal weight gain 937831786 Completed 202009/16/2022 Problem Code: R63.5; Problem Code Type: ICD-10; Not Available [facility] 3 04:15:01 Abdomina l pain 99126881 Completed 202202/28/2023 Problem Code: R10.9; Problem Code Type: ICD-10; Not Available [facility] 4 05:38:03 Aspartat e aminotra nsferase serum level above referenc e range 370080355 Active 2023 HERBERT GRACIA [facility] 4 15:55:58 Plantar wart of right foot 38980333329 233503 Active 2023 HERBERT GRACIA [facility] 4 16:07:15 Overweig ht 005147406 Active 2023 HERBERT GRACIA [facility] 4 08:33:42 Acute right otitis media 274065436 Active 2023 HERBERT GRACIA [facility] 4 15:26:38 Problem Notes None recorded. Procedures Surgical History Date Name Laterality Status Provider Name and Address Organization Details Recorded Time 4 Cryosurgery Warts/Skin Tags completed HERBERT GRACIA [facility] 06/29/2023 15:24:53 Imaging Results Imaging Date Name Status LastModified by Organization Details LastModified Time 04/14/2023 comprehensive care clinic note completed [email or web address] [facility] [address] [place], [address] 04/19/2023 08:44:36 04/28/2023 comprehensive care clinic note completed [email or web address] [facility] [address] [facility] [place], [address] 04/28/2023 15:41:52 10/12/2020 imaging/diagnosti c result completed Information not available 12/06/2023 04:14:47 10/12/2020 imaging/diagnosti c result completed Information not available 12/06/2023 04:14:50 01/26/2023 imaging/diagnosti c result completed Information not available 12/06/2023 04:14:51 08/06/2022 imaging/diagnosti c result completed Information not available 12/06/2023 04:14:52 Procedure Notes None recorded. Medical Equipment None Reported. Medications Name Sig Start Date Stop Date Status Note LastModified by Organization Details LastModified Time bupropion HCl SR 150 mg tablet,12 hr sustained-r elease Take 1 tablet by mouth twice a day start one po daily for 3 days, quit after 1 week 10/29 completed Not Available Not Available Not Available Protonix 40 mg tablet,jarad yed release Take 1 tablet by mouth once a day 03/28 completed Not Available Not Available Not Available azithromyci n 250 mg tablet TAKE TWO TABLETS BY MOUTH ON DAY ONE THEN ONE TABLET BY MOUTH ONCE DAILY FOR 4 DAYS 06/07 completed Not Available Not Available Not Available sertraline 100 mg tablet Take 1 tablet by mouth once a day 05/27 completed Not Available Not Available Not Available terbinafine HCl 250 mg tablet Take 1 tablet by mouth once a day 03/23 completed Not Available Not Available Not Available ofloxacin 0.3 % ear drops INSTILL 5 DROPS INTO RIGHT EAR TWICE DAILY FOR 7 DAYS 06/07 completed Not Available Not Available Not Available prednisone 50 mg tablet TAKE 1 TABLET BY MOUTH ONCE DAILY FOR 7 DAYS 06/07 completed Not Available Not Available Not Available sertraline 25 mg tablet Take 1 tablet by mouth once a day increase to 2 tablets daily 11/30 completed Not Available Not Available Not Available cefdinir 300 mg capsule TAKE 1 CAPSULE BY MOUTH TWO TIMES A DAY FOR 10 DAYS 06/07 completed Not Available Not Available Not Available sertraline 50 mg tablet Take 1 tablet by mouth once a day increase to 2 tablets daily after one week 12/28 completed Not Available Not Available Not Available bupropion HCl XL 150 mg 24 hr tablet, extended release Take 1 tablet by mouth once a day 09/16 completed Not Available Not Available Not Available Biktarvy 50 mg-200 mg-25 mg tablet TAKE ONE TABLET BY MOUTH DAILY active Not Available Not Available No t Available Biktarvy 30 mg-120 mg-15 mg tablet 03/28 completed Not Available Not Available Not Available Ozempic 0.25 mg or 0.5 mg (2 mg/3 mL) subcutaneou s pen injector Inject 1/4 mg subcutane ously once a week for 4 weeks then inject 0.5mg once a week 01/29 completed Not Available Not Available Not Available Vitals Date Recorded Body height Body mass index (BMI) Body weight Body temperature Oxygen saturation Oxygen saturation in Arterial blood by Pulse oximetry Respiratory rate Heart rate Systolic blood pressure Diastolic blood pressure Provider Name and Address Organization Details Last Updated DateTime 3 177.8 cm 30.7 kg/m2 90863.7 7 g 98.4 [degF] 98 % 98 % 16 /min 68 /min 124 mm[Hg] 54 mm[Hg] DUKE MILLER RN [facility] 3 14:19:41 Date Recorded Body height Body mass index (BMI) Body weight Body temperature Oxygen saturation Oxygen saturation in Arterial blood by Pulse oximetry Heart rate Respiratory rate Systolic blood pressure Diastolic blood pressure Provider Name and Address Organization Details Last Updated DateTime 4 177.8 cm 27.7 kg/m2 39281.3 3 g 98.4 [degF] 99 % 99 % 66 /min 16 /min 124 mm[Hg] 62 mm[Hg] DUKE MILLER RN [facility] 4 15:10:16 Date Recorded Body height Body mass index (BMI) Body weight Body temperature Oxygen saturation Oxygen saturation in Arterial blood by Pulse oximetry Respiratory rate Heart rate Systolic blood pressure Diastolic blood pressure Provider Name and Address Organization Details Last Updated DateTime 4 177.8 cm 27.3 kg/m2 54284.5 5 g 98.3 [degF] 99 % 99 % 14 /min 77 /min 138 mm[Hg] 70 mm[Hg] DUKE MILLER RN [facility] 4 14:34:00 Social History None recorded. Functional Status None recorded. Mental Status None recorded. Family History Relationship Description Onset Age of this Age Resolved Age Notes LastModified by Organization Details LastModified Time Father Family history of premature coronary heart disease [email or web address] Not available 2022 03:54:55 Paternal Grandfather Family history of diabetes mellitus type 1 [email or web address] Not available 2022 03:54:56 Paternal Grandmother Family history of diabetes mellitus type 1 [email or web address] Not available 2022 03:54:56 Notes:*Problem: Father of heart failure 2020 Medical History No medical history recorded. Immunizations Vaccine Type Date Status Provider Name and Address Organization Details Recorded Time pneumococcal, unspecified formulation 12/23/2020 completed Not Available [facility] 01/29/2023 04:49:14 SARS-COV-2 (COVID-19) vaccine, UNSPECIFIED 08/10/2020 completed Not Available [facility] 01/29/2023 04:49:19 SARS-COV-2 (COVID-19) vaccine, UNSPECIFIED 08/31/2020 completed Not Available [facility] 01/29/2023 04:49:19 SARS-COV-2 (COVID-19) vaccine, UNSPECIFIED 10/13/2021 completed Not Available [facility] 01/29/2023 04:49:19 Hep B, unspecified formulation 10/13/2021 completed Not Available [facility] 01/29/2023 04:49:20 Hep A, unspecified formulation 10/13/2021 completed Not Available [facility] 01/29/2023 04:49:21 SARS-COV-2 (COVID-19) vaccine, UNSPECIFIED 01/29/2023 completed STEWART URENA, [facility] 03/02/2023 12:37:08 influenza, unspecified formulation 01/29/2023 completed STEWART URENA, [facility] 03/02/2023 12:37:19 Td(adult) unspecified formulation 03/22/2015 completed STEWART URENA, [facility] 03/02/2023 14:21:14 Influenza, split virus, quadrivalent, PF 01/29/2023 completed Not Available [facility] 04/02/2023 05:33:06 COVID-19, mRNA, LNP-S, PF, deneen-sucrose, 30 mcg/0.3 mL 01/29/2023 completed Not Available [facility] 04/02/2023 05:33:06 meningococcal conjugate quadrivalent, MenACWY-TT (MCV4) 04/14/2023 completed STEWART URENA, [facility] 06/08/2023 12:20:11 meningococcal conjugate quadrivalent, MenACWY-TT (MCV4) 10/13/2021 completed STEWART URENA, [facility] 06/08/2023 12:20:01 Vaccinia, smallpox Mpox vaccine live, PF, SQ or ID injection 01/06/2022 completed STEWART URENA, [facility] 06/08/2023 12:20:41 Vaccinia, smallpox Mpox vaccine live, PF, SQ or ID injection 02/10/2022 STEWART Hairston, [facility] 06/08/2023 12:20:56 zoster, unspecified formulation 04/14/2023 STEWART Hairston, [facility] 06/08/2023 12:21:28 Past Encounters Encounter ID Performer Location Encounter Start Date Encounter Closed Date Diagnosis/Indication Diagnosis SNOMED-CT Code Diagnosis ICD10 Code [id number] [address] [place] [facility] [place] [address] 03/02/2023 14:06:52 03/02/2023 15:30:04 Colitis, enteritis and gastroenteritis presumed infectious [id number] A09 [id number] [facility] [address] [place] [address] 06/08/2023 14:55:42 06/08/2023 16:16:31 Aspartate aminotransferase serum level above reference range 794949927 R74.01 Plantar wa rt of right foot 2459473641 6262468 B07.0 Onychomyco sis due to dermatophyte 425016961 B35.1 Human immunodeficiency virus infection 50232736 B20 Essential hypertension 44930377 I10 Overweight 249169752 E66 .3 [id number] [facility] [address] [place] [address] 06/29/2023 14:28:48 06/29/2023 15:23:45 Aspartate aminotransferase serum level above reference range 387969876 R74.01 Plantar wa rt of right foot 1079812028 6046371 B07.0 Acute righ t otitis media 009960610 H66.91 Health Concerns Section Related Observation LastModified by Organization Detai ls LastModified Time None Recorded Concern Status LastModified by Organization Details LastModified Time None Recorded Advance Directives Directive None Recorded Payers Encounter Date Sequence Insurance Name Policy Number Policy Maya Covered Member ID Maya Member ID Guarantor Name 03/02/2023 1 [facility] (MEDICAID) Theodore Appiah [id number] Theodore Appiah 06/08/2023 1 [facility] (MEDICAID) Theodore Appiah [id number] Theodore Appiah 06/29/2023 1 [facility] (MEDICAID) Theodore Appiah [id number] Theodore Appiah Notes Date Note Type Note Provider Name and Address Organization Details Recorded Time 03/02/2023 text/html HPI Notes: He wa s seen a month ago for colitis at ED. Had sudden onset abdominal pain while at gym. Was sick for 2 days or so, loose stools. Saw Natali on f/u and got labs. Had sore throat and swollen gland in neck but these resolved too. No abdominal pain since then, BMs not painful, no blood, back to regular variation. has been eating better to loose weight. never got ozempic HERBERT scott, [facility]. 03/02/2023 15:01:13 06/08/2023 text/html HPI Notes: Patie nt here because he is requesting a referral to podiatry. He just started running and shoes have been wearing on his heels. Reports increased calluses and irritation at the sole of his foot. Has not tried arch support and heel pads. 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 Previously used terbinafine which was helpful and just wants to make sure this doesn't get as bad as before. loosing weight with diet and exercise. Took supplument with work out for a few weeks, but hasn't taken it in over a month. only medication is Biktarvy, just had labs. HERBERT scott, [facility]. 06/09/2023 08:34:23 06/29/2023 text/html HPI Notes: Here for follow up foot feels better he woke up a couple weeks ago, couldn't hear from right ear. A/w cold. Given drops from ENT, using now. Saw ID, monitoring with Dr. Fernandes. Told they would monitor liver tests. HERBERT scott [facility], [facility]. 06/29/2023 15:27:14
--- OUTSIDE RECORDS SUMMARY | 2023-12-31 06:29 | XMS_ITS | Clinical Summary ---
Author Organization [facility] Address [address] [place] [address] Care Team Providers Care Candy Department Manager Name Role Phone Isai Gracia MD Primary Care Provider [phone] Medications Medication Sig Dispensed Refills Start Date [...] Contact Info) Description 01/10/2024 10:00 EDT Telemedicine [facility] Infectious Disease - [address] [id number] Frantz Geronimo, DO [address] [facility], [address] [place] [address] Health Maintenance Due Date Last Done Comments Hepatitis B Vaccine (1 of 3 - 19+ 3-dose series) 03/01 COVID-19 Vaccine ( - 2023- season) 2023 Hepatitis C Screen Completed 09/02/2020 Procedures Procedure Name Priority Date/Time Associated Diagnosis Comments HEPATITIS C AB W REFLEX TO HCV RNA BY PCR Routine 09/02/2020 15:23 EDT from Last 3 Months or Most Recently Relevant to Health Maintenance Results * HEPATITIS C AB W REFLEX TO HCV RNA BY PCR (09/02/2020 15:23 EDT) Hep C Antibody Negative Negative 09/04/2020 10:04 EDT [facility] Blood VENOUS BLOOD / Unknown 09/02/2020 15:23 EDT 09/03/2020 16:10 EDT Provider Outr Resulting Lab CHEMISTRY & BLOOD GAS ORDERABLES [facility] [address] [place] [address] from Last 3 Months or Most Recently Relevant to Health Maintenance Care Teams Candy Department Manager Relationship Specialty Start Date End Date Isai Gracia MD [address] [place] [address] PCP - General 07/03/21
--- OUTSIDE RECORDS SUMMARY | 2023-12-31 06:29 | XMS_ITS | Encounter Summary ---
Author Organization [facility] Address [address] [place] [address] Care Team Providers Care Wheelabrator Operator Name Role Phone Unavailable Primary Care Provider Unavailabl e Reason for Visit * Reason Onset Date Comments Medications Refill 04/27/2021 Encounter Details Date Type Department Care Team (Late st Contact Info) Description 04/27/[address] [facility] Infectious Disease - [address] [address] Johnson Fan MD [address] [place] [address], [address] [place] [address] Medications Refill Social History Tobacco Use Types Packs/Day Years Used Date Smoking Tobacco: Never Assessed Sex and Gender Information Value Date Recorded Sex Assigned at Male 10/07/2020 12:27 EDT Gender Identity Male 07/03/2021 8:35 EDT Sexual Orientation Not on file documented as of this encounter Miscellaneous Notes * Telephone Encounter - Johnson Fan MD - 04/27/2021 1200 EST Theodore called stating Tarun was not at [facility] in [place]. I called them and they said it was there waiting for him to be picked up. He will go pick it up. Johnson Fan MD 04/27/2021 12:03 documented in this encounter Plan of Treatment Upcoming Encounters Date Type Department Care Team (Late st Contact Info) Description 01/10/2024 10:[address] [facility] Infectious Disease - [address] [address] Frantz Geronimo, DO [address] [place] [address], [facility] [address] [place] [phone] documented as of this encounter Visit Diagnoses Not on filedocumented in this encounter
--- OUTSIDE RECORDS SUMMARY | 2023-12-31 06:29 | XMS_ITS | Encounter Summary ---
Author Organization [facility] Address [address] [place] [address] Care Team Providers Care Solidworks Designer Name Role Phone Isai Gracia MD Primary Care Provider [phone] Reason for Visit * Reason Onset Date Comments Follow-up 04/01/2022 Encounter Details Date Type Department Care Team (Late st Contact Info) Description 04/01/2022 Telephone [facility] Infectious Disease - [address] [address] Frantz Geronimo DO [address] [facility], [address] [place] [phone] Follow-up Social History Tobacco Use Types Packs/Day Years Used Date Smoking Tobacco: Never Assessed Sex and Gender Information Value Date Recorded Sex Assigned at Male 10/07/2020 12:27 EDT Gender Identity Male 07/03/2021 8:35 EDT Sexual Orientation Not on file documented as of this encounter Miscellaneous Notes * Telephone Encounter - Frantz Geronimo DO - 04/01/2022 9635 EST Patient notified Destiny that he was getting low on Biktarvy. I called in a prescription to the [facility] 30 tablets, 11 refills. We will see him in April for his next routine HIV follow-up. documented in this encounter Plan of Treatment Upcoming Encounters Date Type Department Care Team (Late st Contact Info) Description 01/10/2024 10:00 EDT Telemedicine [facility] Infectious Disease - [address] [place] [place], [place] [phone] Frantz Geronimo, DO [address] [facility], [address] [place] [phone] documented as of this encounter Visit Diagnoses Not on filedocumented in this encounter Care Teams Solidworks Designer Relationship Specialty Start Date End Date Isai Gracia MD [address] [place] [address] PCP - General 07/03/21 documented as of this encounter
--- OUTSIDE RECORDS SUMMARY | 2023-12-31 06:29 | XMS_ITS | Encounter Summary ---
Author Organization [facility] Address [address] [place] [address] Care Team Providers Care Head Bookkeeper Name Role Phone Isai Gracia MD Primary Care Provider [phone] Encounter Details Date Type Department Care Team (Late st Contact Info) Description 10/12/2020 Lab Requisition [facility] Pathology & Laboratory Medicine - [facility] [address] [place], [place] [address] Outr Resulting Lab, Provider Social History Tobacco [...] Info) Description 01/10/2024 10:00 EDT Telemedicine [facility] Infectious Disease - [address] [address] Frantz Geronimo, DO [address] [facility], [address] [place] [phone] documented as of this encounter Procedures Procedure Name Priority Date/Time Associated Diagnosis Comments ZZCOVID-19 TEST [facility] PCR Today 10/12/2020 1:15 EDT COVID-19 TESTING Routine 10/12/2020 1:15 EDT documented in this encounter Results * COVID-19 TEST [facility] PCR (10/12/2020 1:15 EDT) Swab ENTIRE NASOPHARYNX / Unknown 10/12/2020 1:15 EDT 10/12/2020 21:00 EDT Provider Outr Resulting Lab MICROBIOLOGY - GENERAL ORDERABLES Performing Organization Address City/[facility] Co de Phone Number [facility] [address] [place] [address] * COVID-19 TESTING (10/12/2020 1:15 EDT) COVID-19 rt-PCR Result Negative Negative 10/13/2020 10:26 EDT [facility] Comment: This test has not been FDA cleared or approved. This test has been authorized by FDA under an EUA for use by authorized laboratories. This test has been authorized only for detection of nucleic acid from 2019-nCoV, not for any other viruses or pathogens. This test is only authorized for the duration of the declaration that circumstances exist justifying the authorization of emergency use of in vitro diagnostic tests for detection and/or diagnosis of 2019-nCoV under section 564(b)(1) of Act, 21 U.S.C ?? 360bbb-3(b) (1), unless the authorization is terminated or revoked sooner. Negative results do not preclude 2019-nCoV infection and should not be used as the sole basis for treatment or other patient management decisions. Negative results must be combined with clinical observations, patient history, and epidemiological information. Performed on the [employer] Fusion instrument Performing Lab [place] [facility] Lab 10/13/2020 10:26 EDT [facility] Swab 10/12/2020 1:15 EDT 10/12/2020 21:00 EDT Provider Outr Resulting Lab MICROBIOLOGY - GENERAL ORDERABLES Performing Organization Address City/[facility]/ZIP Co de Phone Number [facility] [address] [place] [address] documented in this encounter Visit Diagnoses Not on filedocumented in this encounter Care Teams Head Bookkeeper Relationship Specialty Start Date End Date Isai Gracia MD [facility] [place] [address] [place] [address] PCP - General 07/03/21 documented as of this encounter
--- OUTSIDE RECORDS SUMMARY | 2023-12-31 06:29 | XMS_ITS | Encounter Summary ---
Author Organization [facility] Address [address] [place] [address] Care Team Providers Care Admissions Clerk Name Role Phone Isai Gracia MD Primary Care Provider [phone] Reason for Visit * Reason Comments Follow-up Encounter Details Date Type Department Care Team (Late st Contact Info) Description 05/11/2022 10:00 EST Telemedicine [facility] Infectious Disease - [address] [id number] Frantz Geronimo, DO 111 [facility], [facility] [address] [place] [phone] Asymptomatic HIV infection, with no history of HIV-related illness ([facility]) (Primary Dx) Social History Tobacco Use Types Packs/Day Years Used Date Smoking Tobacco: Never Assessed Sex and Gender Information Value Date Recorded Sex Assigned at Male 10/07/2020 12:27 EDT Gender Identity Male 07/03/2021 8:35 EDT Sexual Orientation Not on file documented as of this encounter Progress Notes * Frantz Geronimo, DO - 05/11/2022 1000 EST I spent a total of 30 minutes on the date of this encounter meeting with the patient and reviewing documentation/coordinating care as described in the above note. No procedures were performed at the time of the visit. Division of Infectious Disease Follow up/Progress Note 05/10/22 9:24 TELEMEDICINE VIDEO VISIT Today's visit was provided through telemedicine video conferencing: The location of the patient : Home The location of the provider: Office [place] The following staff and their role [...] medical or mental health care. HPI:??Mr.??Bijal??is a 37??y.o.??male who is here for??HIV follow up. ??Patient ??diagnosed with HIVsummer 2020??when he presented to an urgent care in [facility] to restart PrEP which he had beenoff of since Feb 2019. ??His last known HIV negative test dates back to summer 2019??per his report??while he was living??in [place]. ?His initial panel of labs collected 18 September 2020 shows an HIV genotype with no relevant mutations, his initial CD4 count??Aug 2020??916, his initial viral load is 9563.?Started on Biktarvy??in October 2020. ??Most recent labs Feb VL < 20, CD4 1519. ?? Please see initial eval note from September 2020 for back ground. ??Since starting Biktarvy in October 2020, pt with perfect adherence.?He gets 30-day supply at a time.?He has a great rapport with his primary care provider who is helping to manage his anxiety.?Getting back to work in the [employer].?Very busy, traveling to [place]??and [place] mainly.?Things are very stable at home. ??Heenjoys living with his mom and helping around the house. His mom is aware of the of his diagnosis. Work continues to get better and better. 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 No financial difficulties. ?? Patient continues to do phenomenally well. He enjoys his work, he is taking care of himself. He is in a relationship, his partner is on PrEP, they are using condoms. He joined us today on the road [facility] but he will be going back to [place] soon for more work ?? Review of Systems: 10-point review of [...] File ?? No HW Social History Tobacco:??Quit smoking??Spring??2021. 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 Relationships / Living Situation:?Single, has 1 male partner in [place] who is currently on PrEP. Travel:Born in [facility]. ??Pt moved to [place] and has lived in [place] for work. 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 Animal exposure:??No pets Food:??No raw milk Other comments:??Routine childhood vaccines as child in [place]. ?? Social History ? Socioeconomic History ??? [...] Gatherings with Friends and Family: ??? Attends [employer] Services: ??? Active Member of Clubs or [...] great supply. ??No missed. - Last CD4 count??Apr 2022 1519 - Last HIV viral load??Apr 2022 < 20 - OI prophylaxis:??N/A - Compliance:??excellent - Sexual activity:??Not currently - G/C, RPR??states these were performed at primary care provider's office but we need to confirm this. - HBV/HCV??August 2020 hepatitis A total antibody negative, hepatitis B core antibody negative,?Bit by dog 2018 time frame and got Td by report. - PCM is ??Isai??Razer at [facility]. -??Follow-up with us in??6 months ?? #) Health maintenance - Colonoscopy:??Colonoscopy as a teenager while in [facility]. ??Unclear the findings. - Immunizations:??COVID July-August 2020.?Got covid infection Mar 2021.?Prevnar/Flu vaccine 23 Dec 2020.?Patient given??pneumovax and meningitis??#20 Jan 2021.?? Patient needed??meningitis #2 and hepatitis A /hepatitis B initial vaccine at her last visit, Destiny will check the records to see if this happened and if he needs any follow-up.. Patient will need HPV (this may be better done through the primary care provider)..? 3)??Anxiety, much improved since he was started on Zoloft/Wellbutrin by PCM.? It has been a pleasure seeing??Mr.??Bijal??in clinic today. ?? Frantz Geronimo DO Pager [phone] Infectious Diseases ? Currently employed:??Yes ?? Adherence [...] Contact Info) Description 01/10/2024 10:00 EDT Telemedicine [facility] Infectious Disease - [address] [address] Frantz Geronimo DO 111 [facility], [facility] [address] [place] [address] documented as of this encounter Visit Diagnoses Diagnosis Asymptomatic HIV infection, with no history of HIV-related illness ([facility])- Primary documented in this encounter Care Teams Admissions Clerk Relationship Specialty Start Date End Date Isai Gracia MD [address] [facility] [place] [address] PCP - General 07/03/21 documented as of this encounter
--- OUTSIDE RECORDS SUMMARY | 2023-12-31 06:29 | XMS_ITS | Encounter Summary ---
Author Organization [facility] Address [address] [place] [address] Care Team Providers Care Airconditioning Plant Operator Name Role Phone Isai Gracia MD Primary Care Provider Encounter Details Date Type Department Care Team (Late st Contact Info) Description 09/18/2020 Lab Requisition [facility] Pathology & Laboratory Medicine - [facility] [address] [place], [place] [address] Outr Resulting Lab, Provider Social History Tobacco [...] Contact Info) Description 01/10/2024 10:00 EDT Telemedicine [facility] Infectious Disease - [address] [address] Frantz Geronimo, DO 111 [facility], [address] [place] [phone] documented as of this encounter Procedures Procedure Name Priority Date/Time Associated Diagnosis Comments HEPATITIS A TOTAL ANTIBODY W REFLEX Routine 09/18/2020 8:40 EDT HEPATITIS B CORE ANTIBODY (TOTAL) Routine 09/18/2020 8:40 EDT documented in this encounter Results * HEPATITIS B CORE ANTIBODY (TOTAL) (09/18/2020 8:40 EDT) Hepatitis B Core Ab, Total Negative Negative 09/19/2020 11:[address] [facility] Blood VENOUS BLOOD / Unknown 09/18/2020 8:40 EDT 09/18/2020 15:56 EDT Provider Outr Resulting Lab CHEMISTRY & BLOOD GAS ORDERABLES Performing Organization Address City/[facility] Co de Phone Number [facility] [address] [place] [address] * HEPATITIS A TOTAL ANTIBODY W REFLEX (09/18/2020 8:40 EDT) Hepatitis A Antibody, Total Negative Negative 09/19/2020 11:[address] [facility] Blood VENOUS BLOOD / Unknown 09/18/2020 8:40 EDT 09/18/2020 15:[address] [facility] - 09/19/2020 11:22 EDT The result of this assay can be falsely elevated (Positive) due to the consumption of Biotin. Provider Outr Resulting Lab CHEMISTRY & BLOOD GAS ORDERABLES Performing Organization Address City/[facility] Co de Phone Number [facility] [address] [place] [address] documented in this encounter Visit Diagnoses Not on filedocumented in this encounter Care Teams Airconditioning Plant Operator Relationship Specialty Start Date End Date Isai Gracia [place] [address] [place] [address] PCP - General 07/03/21 documented as of this encounter
--- OUTSIDE RECORDS SUMMARY | 2023-12-31 06:29 | XMS_ITS | Encounter Summary ---
Author Organization [facility] Address [address] [place] [address] Care Team Providers Care Tarper Name Role Phone Unavailable Primary Care Provider Unavailabl e Reason for Visit * Reason Comments Follow-up Encounter Details Date Type Department Care Team (Late st Contact Info) Description 02/17/2021 9:30 EST Telemedicine [facility] Infectious Disease - [address] [phone] Frantz Geronimo, DO 111 [facility], [address] [place] [address] Asymptomatic HIV infection, with no history of HIV-related illness (HCC) (Primary Dx) Social History Tobacco Use Types Packs/Day Years Used Date Smoking Tobacco: Never Assessed Sex and Gender Information Value Date Recorded Sex Assigned at Male 10/07/2020 12:27 EDT Gender Identity Male 07/03/2021 8:35 EDT Sexual Orientation Not on file documented as of this encounter Progress Notes * Frantz Geronimo, - 02/17/2021 0930 EST I spent a [...] medical or mental health care. HPI:??Mr.??Bijal??is a 35 y.o.??male who is here for HIV follow up. ??Patient diagnosed with HIV summer 2020 when he presented to an urgent care in [facility] to restart PrEP which he had been off of since Feb 2019. ??His last known HIV negative test dates back to summer 2019??per his report??while he was living??in [place]. ?His initial panel of labs collected 18 September 2020 shows an HIV genotype with no relevant mutations, his initial CD4 count Aug 2020 916, his initial viral load is 9563.?? Started on Biktarvy in October 2020. Follow up HIV VL 04 Dec 2020 73 and creat 1.1, ast 24, alt 40. Repeat labs from 10 Feb 2021 CD4 1362, VL 72 ?? Please see initial eval note from September 2020 for back ground. Since starting Biktarvy in October 2020, pt with perfect adherence. He gets 30-day supply [...] 2020. ??MSM.?. ??Father recently 2020. Travel:Born in [facility]. ??Pt moved to [place] after highschool and has lived in [place] for work. 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 Living with mom. ?Plans to go back out on he road in a few more months. Making money via [employer] work locally. Animal exposure:??No pets Food:??No raw milk Other comments:??Routine childhood vaccines as child in [place]. ?? Social History ? Socioeconomic History ??? [...] Gatherings with Friends and Family: ??? Attends [employer] Services: ??? Active Member of Clubs or [...] B core antibody negative, Bit by dog 2018 time frame and got Td by report. - Dental needs to be addressed at next visit. - PCM is Dr Isai Hernandez at [facility]. -??Follow-up with us in 3 months. We will get another viral load at that time to make sure that he becomes < 20 with continued ART. ?? #) Health maintenance - Cholesterol:??No results found for: CHOL, HDL, LDLBASE, TRIG, CHOLHDL - Diabetes:??No results found for: HGBA1C - Colonoscopy:??Colonoscopy as a teenager while in [facility]. ??Unclear the findings. - Immunizations:??COVID July-August 2020. Needs booster now.? Prevnar/Flu vaccine 23 Dec 2020. Patient given pneumovax and meningitis today at clinic. We will need to address hepatitis A, hepatitis and HPV based at PCM's office. ?? 3)??Anxiety, much improved since he was started on Zoloft by his new PCM and pt happy with progressbut my asked to switch to Wellbutrin as he thinks that will help him quit smoking. ?? It has been a pleasure seeing??Mr.??Bijal??in clinic today. ?? Frantz Geronimo DO Pager [phone] Infectious Diseases ? Currently employed:??No ?? Adherence [...] Contact Info) Description 01/10/2024 10:00 EDT Telemedicine [facility] Infectious Disease - [address] [address] Frantz Geronimo DO 111 [facility], [facility] [address] [place] [address] documented as of this encounter Visit Diagnoses Diagnosis Asymptomatic HIV infection, with no history of HIV-related illness ([facility])- Primary documented in this encounter
--- OUTSIDE RECORDS SUMMARY | 2023-12-31 06:29 | XMS_ITS | Encounter Summary ---
Author Organization [facility] Address [address] [place] [address] Care Team Providers Care Cashier Wrapper Name Role Phone Isai Gracia MD Primary Care Provider [phone] Encounter Details Date Type Department Care Team (Late st Contact Info) Description 09/03/2020 Lab Requisition [facility] Pathology & Laboratory Medicine - [address] [phone] Outr Resulting Lab, Provider Social History Tobacco [...] Description 01/10/2024 10:00 EDT Telemedicine [facility] Infectious Disease - [address] [address] Frantz Geronimo, DO 111 [facility], [facility] [address] [place] [phone] documented as of this encounter Procedures Procedure Name Priority Date/Time Associated Diagnosis Comments CHLAMYDIA/N. GONORRHOEAE AMPLIFIED NUCLEIC ACID Routine 09/02/2020 15:23 EDT documented in this encounter Results * CHLAMYDIA/N. GONORRHOEAE AMPLIFIED RNA (09/02/2020 15:23 EDT) Neisseria gonorrhoeae Result Negative Negative 09/04/2020 14:06 EDT [facility] Chlamydia trachomatis Result Negative Negative 09/04/2020 14:06 EDT [facility] Urine URINE / Unknown 09/02/2020 1 5:23 EDT 09/03/2020 17:04 EDT Provider Outr Resulting Lab MICROBIOLOGY - GENERAL ORDERABLES Performing Organization Address City/State/[facility] Co de Phone Number [facility] [address] [place] [address] documented in this encounter Visit Diagnoses Not on filedocumented in this encounter Care Teams Cashier Wrapper Relationship Specialty Start Date End Date Isai Gracia MD [address] [place] [address] PCP - General 07/03/21 documented as of this encounter
--- OUTSIDE RECORDS SUMMARY | 2023-12-31 06:29 | XMS_ITS | Encounter Summary ---
Author Organization [facility] Address [address] [place] [address] Care Team Providers Care Lead Manufacturing Technician Name Role Phone Isai Gracia MD Primary Care Provider [phone] Reason for Visit * Reason Comments Follow-up Encounter Details Date Type Department Care Team (Late st Contact Info) Description 11/16/2022 10:30 EDT Telemedicine [facility] Infectious Disease - [address] [address] Frantz Geronimo, DO 111 [facility], [address] [place] [phone] Asymptomatic HIV infection, with no history of HIV-related illness ([facility]) (Primary Dx) Social History Tobacco Use Types Packs/Day Years Used Date Smoking Tobacco: Never Assessed Sex and Gender Information Value Date Recorded Sex Assigned at Male 10/07/2020 12:27 EDT Gender Identity Male 07/03/2021 8:35 EDT Sexual Orientation Not on file documented as of this encounter Progress Notes * Frantz Geronimo, DO - 11/16/2022 1030 EDT I spent a total of 30 minutes on the date of this encounter meeting with the patient and reviewing documentation/coordinating care as described in the above note. No procedures were performed at the time of the visit. Division of Infectious Disease Follow up/Progress Note Telephone visit 11/16/22 10:41 The concept of ???Telemedicine?? has been described [...] a total of 30 minutes with Theodore Kwon Bijal today and 30 minutes of that time was spent in counseling and coordination of care as described in the progress note. The concept of ???Telemedicine?? has been described [...] he presented to an urgent care in [facility] to restart PrEP which he had beenoff of since Feb 2019. ??His last known HIV negative test dates back to summer 2019??per his report??while he was living??in [place]. ?His initial panel of labs collected 18 September 2020 shows an HIV genotype with no relevant mutations, his initial CD4 count??Aug 2020??916, his initial viral load is 9563.?Started on Biktarvy??in October 2020. ??Most recent labs??Apr 2022 VL < 20, Apr 2022 CD4 1519. ?? Please see initial eval note from September 2020 for back ground. ??Since starting Biktarvy in October 2020, pt with perfect adherence.?He gets 30-day supply at a time.?He has a great rapport with his primary care provider who is helping to manage his anxiety.?Getting back to work in the [employer].?Very busy, traveling to [place]??and [place] mainly.?Things are very stable at home. ??Dmitryjoys living with his mom and helping around the house.?His mom is aware of the of his diagnosis. ??Work continues to get better and better. 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 ??No financial difficulties. ?? Patient continues to do phenomenally well. He enjoys his work, he is taking care of himself. He is in a relationship, his partner is on PrEP, they are using condoms. He had difficulty with a Zoom link so we had a phone call visit today. He is back in town for short period of time but anticipates travel back to [place], [place] in [place] for work over the next few months. ?? Review of Systems: 10-point review of [...] ?? No HW Social History Tobacco:??Quit smoking??Spring??2021. 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 Relationships / Living Situation:?Single, has 1 male partner in [place] who is currently on PrEP. Travel:Born in [facility]. ??Pt moved to [place] after highschool and has lived in [place] for work. 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 Animal exposure:??No pets Food:??No raw milk Other comments:??Routine childhood vaccines as child in [place]. ?? Physical Exam General: NAD, very pleasant. ? Assessment and Plan: ?? #) HIV -Newly diagnosed in??August 2020. ??Initial genotype August 2020 no relevant mutations.?Had been offprep since February 2019. ??Suspect he was infected in April 2020 timeframe. - Prior regimens include??N/A -??Biktarvy started October 2020. ??Gets 30 days at a time.?Has great supply. ??No missed doses. Gets them via US mail. - Last CD4 count??Apr 2022 1519 - Last HIV viral load??Apr 2022 < 20 - OI prophylaxis:??N/A - Compliance:??excellent - Sexual activity:??Not currently - HBV/HCV??August 2020 hepatitis A total antibody negative, hepatitis B core antibody negative,?Bit by dog 2019 time frame and got Td by report. - PCM is ??Isai??[facility] at [facility]. -??Follow-up with us in??6 months, needs HIV VL now. Destiny will try to arrange this in the next fewweeks. ?? #) Health maintenance - Colonoscopy:??Colonoscopy as a teenager while in [facility]. ??Unclear the findings. - Immunizations:??COVID July-August 2020.?Got covid infection Mar 2021.?Prevnar/Flu vaccine 23 Dec 2020.?Patient given??pneumovax and meningitis??#20 Jan 2021.?Patient still needed??meningitis #2??and hepatitis A /hepatitis B initial vaccine. Logistics are somewhat challenging due to travel at work but will try to stop by the [facility] in the next month to at least address some of thesevaccines. ??Patient will need HPV as well (this may be better done through the primary care provider)..? 3)??Anxiety, much improved since he was started on Zoloft/Wellbutrin by PCM.? It has been a pleasure seeing??Mr.??Bijal??in clinic today. ?? Frantz Geronimo DO Pager [phone] Infectious Diseases ? Currently employed:??Yes ?? Adherence [...] Contact Info) Description 01/10/2024 10:00 EDT Telemedicine [facility] Infectious Disease - [address] [address] Frantz Geronimo DO 111 [facility], [address] [place] [phone] documented as of this encounter Visit Diagnoses Diagnosis Asymptomatic HIV infection, with no history of HIV-related illness ([facility])- Primary documented in this encounter Care Teams Lead Manufacturing Technician Relationship Specialty Start Date End Date Isai Gracia MD [address] [place] [address] PCP - General 07/03/21 documented as of this encounter
--- OUTSIDE RECORDS SUMMARY | 2023-12-31 06:29 | XMS_ITS | Encounter Summary ---
Author Organization [facility] Address [address] [place] [address] Care Team Providers Care Monologist Name Role Phone Unavailable Primary Care Provider Unavailabl e Reason for Visit * Reason Comments Follow-up Encounter Details Date Type Department Care Team (Late st Contact Info) Description 12/16/2020 9:30 EDT Telemedicine [facility] Infectious Disease - [address] [address] Frantz Geronimo, 111 [facility], [address] [place] [address] Symptomatic HIV infection ([facility]) (Primary Dx) Social History Tobacco Use Types Packs/Day Years Used Date Smoking Tobacco: Never Assessed Sex and Gender Information Value Date Recorded Sex Assigned at Male 10/07/2020 12:27 EDT Gender Identity Male 07/03/2021 8:35 EDT Sexual Orientation Not on file documented as of this encounter Progress Notes * Frantz Geronimo, - 12/16/2020 0930 EDT I spent a [...] patient : Pt came to Office at [facility] The location of the provider: Office The [...] he presented to an urgent care in [facility] to restart PrEP which he had been off of since Feb 2019. His last known HIV negative test dates back to summer 2019 per his report while he was living in [place]. His initial panel of labs collected 18 September 2020 shows an HIV genotype with no relevant mutations, his initial CD4 count Aug 2020 916, his initial viral load is 9563. Started on Biktarvyin October 2020. Follow up HIV VL 04 [...] where he got infected) Apr 2020. MSM. . Father recently 2020. Travel:Born in [place]. Pt moved to [place] after highschool and has lived in [place] for work. 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 Plans to go back outon he road in a few more months. Making money via [employer] type work locally. Animal exposure: No pets Food: No raw milk Other comments: Routine childhood vaccines as child in [place]. ?? Social History ?? Socioeconomic History ??? [...] Gatherings with Friends and Family: ??? Attends Spiritism Services: ??? Active Member of Clubs or [...] is Dr Isai Hernandez at [facility]. - Follow-up with us in 2 months. We will get another viral load at that time to make sure that he becomes < 20 with continued ART. ?? #) Health maintenance - Cholesterol: No results found for: CHOL, HDL, LDLBASE, TRIG, CHOLHDL - Diabetes: No results found for: HGBA1C - Colonoscopy: Colonoscopy as a teenager while in [facility]. Unclear the findings. - Immunizations: COVID July-August [...] clinic today. ?? Frantz Geronimo DO Pager [phone] Infectious Diseases ? Currently employed: No ?? [...] Description 01/10/2024 10:00 EDT Telemedicine [facility] Infectious Disease - [address] [address] Frantz Geronimo DO 111 [facility], [address] [place] [address] documented as of this encounter Visit Diagnoses Diagnosis Symptomatic HIV infection ([facility])- Primary Human immunodeficiency virus [HIV] disease documented in this encounter
--- OUTSIDE RECORDS SUMMARY | 2023-12-31 06:29 | XMS_ITS | Encounter Summary ---
Author Organization [facility] Address [address] [place] [address] Care Team Providers Care Training And Development Officer Name Role Phone Isai Gracia MD Primary Care Provider [phone] Reason for Visit * Reason Comments Follow-up Encounter Details Date Type Department Care Team (Late st Contact Info) Description 07/14/2021 10:00 EDT Telemedicine [facility] Infectious Disease - [address] [id number] Frantz Geronimo, DO [address] [facility], [address] [place] [phone] Asymptomatic HIV infection, with no history of HIV-related illness (HCC) (Primary Dx) Social History Tobacco Use Types Packs/Day Years Used Date Smoking Tobacco: Never Assessed Sex and Gender Information Value Date Recorded Sex Assigned at Male 10/07/2020 12:27 EDT Gender Identity Male 07/03/2021 8:35 EDT Sexual Orientation Not on file documented as of this encounter Progress Notes * Frantz Geronimo, - 07/14/2021 1000 EDT I spent a [...] he presented to an urgent care in [facility] to restart PrEP which he had been off of since Feb 2019. ??His last known HIV negative test dates back to summer 2019??per his report??while he was living??in [place]. ?His initial panel of labs collected 18 [...] time. 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 Very busy, traveling to [place] and [place] mainly. ??Things are very stable at home. ??He enjoys danna ing with his mom and helping around the [...] Apr 2020. ??MSM.?. ??Father 2020. Travel:Born in [facility]. ??Pt moved to [place] after [place] and has lived in [place] for work. 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 Animal exposure:??No pets Food:??No raw milk Other comments:??Routine childhood vaccines as child in [place]. ?? Social History ? Socioeconomic History ??? [...] Gatherings with Friends and Family: ??? Attends Christianity Services: ??? Active Member of Clubs or [...] ??No missed. - Last CD4 count??Mar 2021 131 [...] negative, hepatitis B core antibody negative,?Bit by 2018 time frame and got Td by report. - PCM is ??Isai??David at [facility]. -??Follow-up with us in??3??months. ??We will get another viral load at that time to make sure thathe becomes <??20??with continued ART. ?? #) Health maintenance - Cholesterol:??No results found for: CHOL, HDL, LDLBASE, TRIG, CHOLHDL - Diabetes:??No results found for: HGBA1C - Colonoscopy:??Colonoscopy as a teenager while in [facility]. ??Unclear the findings. - Immunizations:??COVID July-August 2020.?Got covid infection Mar 2021. Needs booster now, June 2021. ?Prevnar/Flu vaccine 23 Dec 2020.?Patient given??pneumovax and meningitis #20 Jan 2021.??We will need to address meningitis #2, hepatitis A, hepatitis B, HPV. Pt on the road a lot so we have asked him to touch bases with us when he is back in town in July 2021. ?? 3)??Anxiety, much improved since he was started on Zoloft/Wellbutrin by PCM. Seems to be OK. ?? It has been a pleasure seeing??Mr.??Bijal??in clinic today. ?? Frantz Geronimo DO Pager [phone] Infectious Diseases ? Currently employed:??Yes ?? Adherence [...] Contact Info) Description 01/10/2024 10:00 EDT Telemedicine [facility] Infectious Disease - [address] [phone] Frantz Geronimo DO [address] [facility], [address] [place] [phone] documented as of this encounter Visit Diagnoses Diagnosis Asymptomatic HIV infection, with no history of HIV-related illness (HCC-CMS)- Primary documented in this encounter Care Teams Training And Development Officer Relationship Specialty Start Date End Date Isai Gracia MD Padmini [address] [place] [id number] PCP - General 07/03/21 documented as of this encounter
--- OUTSIDE RECORDS SUMMARY | 2023-12-31 06:29 | XMS_ITS | Encounter Summary ---
Author Organization [facility] Address [address] [place] [address] Care Team Providers Care Bone Crusher Name Role Phone Isai Gracia MD Primary Care Provider [phone] Reason for Visit * Reason Comments Follow-up Encounter Details Date Type Department Care Team (Late st Contact Info) Description 06/14/2023 11:00 EDT Telemedicine [facility] Infectious Disease - [address] [phone] Frantz Geronimo, DO [address] [facility], [address] [place] [phone] Asymptomatic HIV infection, with no history of HIV-related illness ([facility]) (Primary Dx) Social History Tobacco Use Types Packs/Day Years Used Date Smoking Tobacco: Never Assessed Sex and Gender Information Value Date Recorded Sex Assigned at Male 10/07/2020 12:27 EDT Gender Identity Male 07/03/2021 8:35 EDT Sexual Orientation Not on file documented as of this encounter Progress Notes * Frantz Geronimo, DO - 06/14/2023 1100 EDT I spent a total of 30 minutes on the date of this encounter meeting with the patient and reviewing documentation/coordinating care as described in the above note. No procedures were performed at the time of the visit. Division of Infectious Disease Follow up/Progress Note 06/14/23 11:13 TELEMEDICINE VIDEO VISIT Today's visit was provided through telemedicine video conferencing: I have reviewed the appropriateness of using video technology with the patient with regards to today's visit. The location of the patient : Not at home (another medical/non-medical, personal spaces outside [facility]), [facility] Patient location state: Visit Location State: [place] The location of the provider: Office Provider location state: Visit Location State: [facility] The following people and their roles were present for today's visit: Appointment Provider: Frantz Geronimo, DO Frantz Geronimo, DO The concept of ???Telemedicine?? [...] in patient???s medical or mental health care. Patient understands that they maybe responsible for copays, deductible or coinsurance for this service. HPI: Mr. Appiah is a 37 y.o. male who is here for HIV follow up. Patient diagnosed with HIV summer 2020 when he presented to an urgent care in [facility] to restart PrEP which he had been off of since Feb 2019. His last known HIV negative test dates back to summer 2019 per his report while he was living in [place]. His initial panel of labs collected 18 September 2020 shows an HIV genotype with no relevant mutations, his initial CD4 count Aug 2020 916, his initial viral load is 9563. Started on Biktarvyin October 2020. Most recent labs Apr 2023 VL < 20, Apr 2023 CD4 1157. Please see initial eval note from September 2020 for back ground. Since starting Biktarvy in October 2020, pt with perfect adherence. He gets 90-day supply at a time. He has a great rapport with his primary care provider who is helping to manage his anxiety which seems to be well-managed off medications. Patient continues to do phenomenally well. He enjoys his work, he is taking care of himself. He is in a relationship, his partner is on PrEP, they are using condoms. Pt very busy with work and continues to travel to [place], [place] and [place]. Family is very supportive. Review of Systems: 10-point review of systems is negative except as noted in the HPI. Past Medical History: No past medical history on file. Anxiety GERD HIV dx 2020 Past Surgical History: No past surgical history on file. Appdx Hemorrhoid surgery No current outpatient medications on file. Meds Wellbutrin zoloft Biktarvy Not on File No HW Social History Tobacco: Quit smoking Spring 2021. 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 Relationships / Living Situation: Single, has 1 male partner in [place] who is currently on PrEP. Travel:Born in [facility]. Pt moved to [place] after high[employer] and has lived in [place] for work. Works as a musician. Making money via [employer] type work/sings/plays multiple instruments. Animal exposure: No pets Food: No raw milk Other comments: Routine childhood vaccines as child in [place]. Physical Exam General: NAD, very pleasant. Assessment and Plan: #) HIV -Newly diagnosed in August 2020. Initial genotype August 2020 no relevant mutations. Had been off prep since February 2019. Suspect he was infected in April 2020 timeframe. - Prior regimens include N/A - Biktarvy started October 2020. Gets 90 days at a time. Has great supply. No missed doses. Gets them via [place] mail. - Last CD4 count Apr 2023 1157 - Last HIV viral load Apr 2023 < 20 - OI prophylaxis: N/A - Compliance: excellent - Sexual activity: Not currently - HBV/HCV August 2020 hepatitis A total antibody negative, hepatitis B core antibody negative, Bit bydog 2018 time frame and got Td by report. - PCM is Dr Isai Hernandez at [facility]. - Follow-up with us in 6 months, needs HIV VL then, no need for CD4 as his numbers look so good. #) Health maintenance - Colonoscopy: Colonoscopy as a teenager while in [facility]. Unclear the findings. - Immunizations: COVID July-August 2020. Got covid infection Mar 2021. Influenza/COVID booster fall 2022. Prevnar/Flu vaccine 23 Dec 2020. Patient given pneumovax and meningitis #20 Jan 2021. Meningitis #2 and hepatitis A /hepatitis B initial vaccine UTD done 2023. Got a single dose of Shingrix via PCMdue to administrative error. 3) Anxiety, much improved since he was started on Zoloft/Wellbutrin by PCM but stopped and seems rubén doing well. It has been a pleasure seeing Mr. Appiah in clinic today. Frantz Geronimo DO Pager [phone] Infectious Diseases Currently employed: Yes Adherence counseling: Yes Linguistic services: No Patient [...] Description 01/10/2024 10:00 EDT Telemedicine [facility] Infectious Disease [address] [address] Frantz Geronimo DO [address] [facility], [address] [place] [phone] documented as of this encounter Visit Diagnoses Diagnosis Asymptomatic HIV infection, with no history of HIV-related illness ([facility])- Primary documented in this encounter Care Teams Bone Crusher Relationship Specialty Start Date End Date Isai Gracia [place] [address] [place] [address] PCP - General 07/03/21 documented as of this encounter
--- OUTSIDE RECORDS SUMMARY | 2023-12-31 06:29 | XMS_ITS | Encounter Summary ---
Author Organization [facility] Address [address] [place] [address] Care Team Providers Care Hotel Registration Clerk Name Role Phone Isai Gracia MD Primary Care Provider [phone] Encounter Details Date Type Department Care Team (Late st Contact Info) Description 11/25/2022 Lab Requisition [facility] Pathology & Laboratory Medicine - [facility] [address] [place], [place] [phone] Outr Resulting Lab, Provider Social History Tobacco [...] Contact Info) Description 01/10/2024 10:00 EDT Telemedicine [facility] Infectious Disease - [address] [address] Frantz Geronimo, DO [address] [facility], [address] [place] [phone] documented as of this encounter Procedures Procedure Name Priority Date/Time Associated Diagnosis Comments T CELL SUBSETS Routine 11/25/2022 13:25 EDT HIV 1 RNA QUANTITATION Routine 11/25/2022 13:25 EDT documented in this encounter Results * (ABNORMAL) HIV 1 RNA QUANTITATION (11/25/2022 13:25 EDT) [facility] HIV RNA Detection, Qual Detected( A) Undetected copies/mL 11/26/2022 12:13 EDT [facility] HIV 1 RNA Quant <20(H) Undetected copies/mL 11/26/2022 12:13 EDT [facility] Comment:HIV-1 RNA level is < 20 copies/mL. This assay cannot accurately quantify HIV-1RNA below this level. Blood VENOUS BLOOD / Unknown 11/25/2022 13:25 EDT 11/25/2022 21:20 EDT [facility] - 11/26/2022 12:13 EDT The quantification range of this assay is 20 IU/mL to 10,000,000 IU/mL. ??Testing was performed using the Earnest HIV test ([employer] with the earnest [employer] System. Provider Outr Resulting Lab CHEMISTRY & BLOOD GAS ORDERABLES [facility] [address] [place] [id number] * T CELL SUBSETS (11/25/2022 13:25 EDT) [facility] % CD3 80 56 - 84 % 11/26/2022 16:54 [facility] % CD4 45 31 - 64 % 11/26/2022 16:54 [facility] % CD8 35 9 - 39 % 11/26/2022 16:54 [facility] Absolute CD3 2,301 840 - 2,669 Cells/uL 11/26/2022 16:54 [facility] Absolute CD4 1,296 488 - 1,734 Cells/uL 11/26/2022 16:54 [facility] Absolute CD8 1,018 154 - 1,097 Cells/uL 11/26/2022 16:54 [facility] 4/8 Ratio 1.27 >=0.90 11/26/2022 16:54 [facility] Blood VENOUS BLOOD / Unknown 11/25/2022 13:25 EDT 11/25/2022 21:18 EDT Provider Outr Resulting Lab IMMUNOLOGY A ND SEROLOGY ORDERABLES [facility] [address] [place] [address] documented in this encounter Visit Diagnoses Not on filedocumented in this encounter Care Teams Hotel Registration Clerk Relationship Specialty Start Date End Date Isai Gracia MD [address] [place] [address] PCP - General 07/03/21 documented as of this encounter
[2023-12-31 06:30] VITALS: BP 173/100; PULSE 71; RESP 18; TEMP 36.8; O2SAT 99
[2023-12-31 06:33] VITALS: BP 173/100; PULSE 71; RESP 18; TEMP 36.8; O2SAT 99
--- NOTE | 2023-12-31 06:44 | W.ED.GENAD ---
Discharge Plan Disposition Patient Disposition: Home Condition: Good Discharge Details Chief Complaint: Abd Prob Clinical Impression: Constipation Primary Care Provider: JERMAIN KWON ED Provider: Yosvany Woodard Home Meds and New Rx's Prescriptions: No Action Biktarvy 50-200-25 mg tablet 1 tab PO DAILY Discharge Instructions Instructions: Polyethylene Glycol-Electrolyte Solution Additional Instructions: Please take the GoLytely. Please mix it with water as directed on the packaging, and drink 8+ ounces every 10 minutes. If you do not have success with this, you may require further evaluation as we discussed together which could include CAT scan and labs. If you notice any worsening of your symptoms, or any new symptoms such as vomiting, diarrhea, fever, chills, shortness of breath, chest pain, numbness, weakness, or fainting , please return immediately to the emergency department for reevaluation. Please follow up with your primary care provider as soon as possible for reassessment and reevaluation. As always, it was a pleasure participating in your medical care today. Referrals: JERMAIN KWON, REGISTERED NURSE PRACTITIONER [Primary Care Provider] - HPI General Date/Time Provider Initiated Documentation: 12/31/23 06:27. HPI Narrative: 38-year-old male with a past medical history of HIV, with undetectable viral levels currently on Biktarvy, irritable bowel syndrome, who presents today for evaluation of constipation. Patient states that he has not had a bowel movement in last 4 days. He admits to some cramping. He did take Colace 3 days ago with no improvement. He then took magnesium citrate and had a small amount of stool leakage that was watery, but none of his hard stool came out. He is seeking recommendations at this time. He admits to some cramping but denies any vomiting. No other complaints at this time. Related Data Home Medications ?Medication ?Instructions ?Recorded ?Confirmed bictegravir 50 mg-emtricitabine 1 tab PO DAILY 11/19/20 12/31/23 200 mg-tenofovir alafenam 25 mg tablet (Biktarvy) Allergies Allergy/AdvReac Type Severity Reaction Status Date / Time amoxicillin Allergy Hives Verified 12/31/23 06:35 Penicillins Allergy Hives Verified 12/31/23 06:35 General Stated Complaint: Abd Prob TIARA: 3 Review of Systems All systems reviewed & are unremarkable except as noted in HPI and below Exam Narrative Exam Narrative: 1.Const: Well-nourished, Well-developed, appearing stated age 2.Eyes: PERRL, no conjunctival injection, and symmetrical lids. 3.ENT: Atraumatic external nose and ears. Moist MM. Neck: Symmetric, trachea midline, No thyromegaly. 4.CVS: +S1/S2, No murmurs or gallops. Peripheral pulses 2+ and equal in all extremities. Brisk capillary refill in all extremities. 5.RESP: Unlabored respiratory effort. Clear to auscultation bilaterally. No wheezes rales or rhonchi 6.GI: Soft, Nontender/Nondistended, No hepatosplenomegaly. No guarding or rebound. No distention. Rectal exam was performed with nurse at bedside, no hard stool ball in the rectal vault. No foreign bodies. 7.MSK: Normocephalic/Atraumatic, Extremities w/o deformity or ttp No cyanosis or clubbing, Normal movement of all extremities 8.Skin: Warm, Dry. No rashes or lesions. 9.Neuro: e commerce director II-XII grossly intact. Sensation grossly intact, no focal neurologic deficits. 10.Psych: (AAO) x3. Appropriate mood and affect Course Vital Signs Vital signs: Vital Signs Temperature 36.8 C 12/31/23 06:30 Pulse 71 12/31/23 06:30 Respiratory Rate 18 12/31/23 06:30 Blood Pressure 173/100 H 12/31/23 06:30 Pulse Oximetry 99 12/31/23 06:30 Temperature 36.8 C 12/31/23 06:33 Temperature Source Oral 12/31/23 06:33 Pulse 71 12/31/23 06:33 Respiratory Rate 18 12/31/23 06:33 Respiratory Effort Normal, Non-Labored 12/31/23 06:33 Blood Pressure 173/100 H 12/31/23 06:33 Blood Pressure Position Sitting 12/31/23 06:33 Pulse Oximetry 99 12/31/23 06:33 Oxygen Delivery Method Room Air 12/31/23 06:33 Oxygen Flow Rate 0 12/31/23 06:30 Pain Level 5 12/31/23 06:33 Medical Decision Making 38-year-old male with a past medical history of HIV, with undetectable viral levels currently on Biktarvy, irritable bowel syndrome, who presents today for evaluation of constipation. Patient states that he has not had a bowel movement in last 4 days. He admits to some cramping. He did take Colace 3 days ago with no improvement. He then took magnesium citrate and had a small amount of stool leakage that was watery, but none of his hard stool came out. He is seeking recommendations at this time. He admits to some cramping but denies any vomiting. No other complaints at this time. Exam demonstrates well-appearing male, soft nondistended abdomen. No abdominal tenderness to suggest diverticulitis, obstruction, or volvulus. Rectal exam was performed with female nurse at bedside, no hard stool ball in the rectal vault. Suspect moderate constipation a bit more proximally. No indication for emergent CT imaging or labs at this time. We will give GoLytely solution for home use, and recommend continued liquid diet. If the patient does not have improvement or he has worsening pain he may require CT imaging or labs. I discussed this with him. He understands. Patient otherwise demonstrates a notably nonsurgical abdomen. I have extensively reviewed the treatment plan and discharge instructions with the patient. I have addressed all patient concerns at this time. The patient was made aware of what symptoms to monitor for that would warrant a return to the emergency department. Discussed the plan with the patient, they demonstrate verbal understanding and agreement with our assessment and plan at this time. The documentation in this chart was dictated using [employer] dictation software. Please excuse any dictation errors. Quality:SDOH Health Related Social Needs: No Data to Display PFSH All Active Problems Constipation (Acute) Conductive hearing loss in right ear (Acute) Sensorineural hearing loss (SNHL) of both ears (Acute) Asymmetrical sensorineural hearing loss (Acute) Recurrent serous otitis media of both ears (Acute) Adenoiditis (Acute) Serous otitis media (Acute) Anxiety (Chronic) Weight gain (Acute) Esophagitis (Acute) HIV (human immunodeficiency virus infection) (Chronic) Medical History Chronic serous otitis media, right ear Cigarette smoker motivated to quit Quit Summer 2021 - Wellbutrin helped Hoarseness URI (upper respiratory infection) Surgical History S/P appendectomy Family History Paternal Grandfather Diabetes Paternal Grandmother Diabetes Father Heart disease CHF (congestive heart failure) Social History Smoking/Tobacco Use Status: Current every day Tobacco Type: cigarettes Smoking risk assessment performed?: Yes Alcohol Intake: current Alcohol Intake frequency: holidays/special occasions only Drug use: Socially Substance use type: marijuana Do you feel safe at home: Yes Do you feel safe in your relationship?: Yes
[2023-12-31] MEDS: Nulytely 4000 ML BTL PO (07:07)
== END 2023-12-31 07:07 | disposition home or self-care (01) ==
PROVIDERS: Emergency Provider Student in an Organized Health Care Education/Training Program; PCP Nurse Practitioner Family
DX: R10.9 Unspecified abdominal pain (principal); K59.00 Constipation, unspecified; F17.210 Nicotine dependence, cigarettes, uncomplicated
CPT/HCPCS: 99283

== ENCOUNTER 2024-01-03 03:35 | Outpatient (CLI) | payer MEDICAID, SELFPAY ==
[2024-01-03 13:56] LABS: Abs Immature Grans 0.02 10^3/uL (0.0-0.06); Absolute Basophil Count 0.06 10^3/uL (0.0-0.2); Absolute Eosinophil Count 0.17 10^3/uL (0.0-0.7); Absolute Lymphocyte Count 2.72 10^3/uL (1.2-3.4); Absolute Monocyte Count 0.63 10^3/uL (0.1-0.8); Absolute Neutrophil Count 3.48 10^3/uL (1.2-6.7); Basophils % 0.8 %; Eosinophils % 2.4 %; HCT 44.1 % (40.0-50.0); HGB 15.9 g/dL (13.5-17.5); Immature Grans % 0.3 %; Lymphocytes % 38.4 %; MCH 34.7 pg (27.0-33.0); MCHC 36.1 % (32.0-36.0); MCV 96 fL (80-95); MPV 9.2 fL (8.0-11.0); Monocytes % 8.9 %; Neutrophils % 49.2 %; Platelet Count 235 10^3/uL (130-400); RBC 4.58 10^6/uL (4.36-5.78); RDW 12.4 % (11.8-14.1); RDW-SD 43.9 fL; WBC 7.08 10^3/uL (4.4-10.8)
[2024-01-03 14:23] LABS: ALT 27 U/L (16-63); AST 19 U/L (15-37); Albumin 3.6 g/dL (3.4-5.0); Alkaline Phosphatase 74 U/L (46-116); Anion Gap 11.1 mmol/L (3-11); BUN 12 mg/dL (7-18); Bilirubin, Total 0.56 mg/dL (0.2-1.0); CO2 24.9 mmol/L (21.0-32.0); Calcium 9.2 mg/dL (8.5-10.1); Chloride 106 mmol/L (98-107); Estimated GFR 98.18 (mL/min/1.73m2); Glucose 92 mg/dL (74-106); Potassium 3.9 mmol/L (3.5-5.1); Sodium 142 mmol/L (136-145); Total Protein 7.4 g/dL (6.4-8.2)
[2024-01-04 14:11] LABS: 4/8 Ratio 1.11 (>=0.90); Absolute CD3 2500 Cells/uL (840-2669); Absolute CD8 1210 Cells/uL (154-1097); CD3 81 % (56-84); CD4 43 % (31-64); CD8 39 % (9-39)
[2024-01-06 12:51] LABS: HIV 1 RNA Qualitative Undetected Copys/mL (Undetected)
== END 2024-01-03 03:36 | disposition home or self-care (01) ==
LOC: LBO 03:35
PROVIDERS: PCP Nurse Practitioner Family; Visit Provider Nurse Practitioner Family
DX: B20 Human immunodeficiency virus [HIV] disease (principal); Z79.899 Other long term (current) drug therapy
CPT/HCPCS: 36415; 80053; 87536; 85025; 86359; 86360

== ENCOUNTER 2024-05-25 02:59 | Outpatient (CLI) | payer MEDICAID, SELFPAY ==
[2024-05-25 12:36] LABS: ALT 24 U/L (16-63); AST 17 U/L (15-37); Albumin 3.7 g/dL (3.4-5.0); Alkaline Phosphatase 66 U/L (46-116); Anion Gap 8.1 mmol/L (3-11); BUN 18 mg/dL (7-18); Bilirubin, Total 0.39 mg/dL (0.2-1.0); CO2 25.9 mmol/L (21.0-32.0); CREATININE 1.1 mg/dL (0.70-1.30); Calcium 9.2 mg/dL (8.5-10.1); Chloride 110 mmol/L (98-107); Estimated GFR 87.03 (mL/min/1.73m2); Glucose 80 mg/dL (74-106); Potassium 4.5 mmol/L (3.5-5.1); Sodium 144 mmol/L (136-145); Total Protein 7.2 g/dL (6.4-8.2)
[2024-05-26 13:26] LABS: HIV 1 RNA Qualitative Undetected Copys/mL (Undetected)
== END 2024-05-25 03:00 | disposition home or self-care (01) ==
PROVIDERS: PCP Nurse Practitioner Family; Visit Provider Nurse Practitioner Family
DX: B20 Human immunodeficiency virus [HIV] disease (principal); Z79.899 Other long term (current) drug therapy
CPT/HCPCS: 36415; 80053; 87536

== ENCOUNTER 2024-09-13 19:36 | Outpatient (REF) | payer MEDICAID, SELFPAY ==
[2024-09-13 21:53] LABS: Calculated LDL 178 mg/dL (<100); Cholesterol 236 mg/dL (<200); HDL Cholesterol 35 mg/dL (>or=40); Triglyceride 116 mg/dL (<150)
== END 2024-09-13 19:37 | disposition home or self-care (01) ==
LOC: NCHCN 19:36
PROVIDERS: PCP Nurse Practitioner Family; Visit Provider Nurse Practitioner Family
DX: Z00.00 Encounter for general adult medical examination without abnormal findings (principal)
CPT/HCPCS: 80061

== ENCOUNTER 2024-12-06 01:49 | Outpatient (CLI) | payer MEDICAID, SELFPAY ==
[2024-12-06 13:31] LABS: Abs Immature Grans 0.01 10^3/uL (0.0-0.06); HCT 42.8 % (40.0-50.0); HGB 15.0 g/dL (13.5-17.5); Immature Grans % 0.2 %; MCH 34.2 pg (27.0-33.0); MCHC 35.0 % (32.0-36.0); MCV 98 fL (80-95); MPV 9.2 fL (8.0-11.0); Platelet Count 231 10^3/uL (130-400); RBC 4.39 10^6/uL (4.36-5.78); RDW 12.2 % (11.8-14.1); RDW-SD 43.9 fL; WBC 6.47 10^3/uL (4.4-10.8)
[2024-12-06 14:29] LABS: ALT 22 U/L (16-63); AST 18 U/L (15-37); Albumin 3.7 g/dL (3.4-5.0); Alkaline Phosphatase 61 U/L (46-116); Anion Gap 7.0 mmol/L (3-11); BUN 16 mg/dL (7-18); Bilirubin, Total 0.4 mg/dL (0.2-1.0); CO2 27.0 mmol/L (21.0-32.0); Calcium 9.4 mg/dL (8.5-10.1); Chloride 108 mmol/L (98-107); Estimated GFR 78.40 (mL/min/1.73m2); Glucose 91 mg/dL (74-106); Potassium 4.3 mmol/L (3.5-5.1); Sodium 142 mmol/L (136-145); Total Protein 7.1 g/dL (6.4-8.2)
[2024-12-07 14:14] LABS: CD3 81 % (56-84); CD4 48 % (31-64); CD8 34 % (9-39)
== END 2024-12-06 01:50 | disposition home or self-care (01) ==
LOC: LBO 01:49
PROVIDERS: PCP Nurse Practitioner Family; Visit Provider Nurse Practitioner Family
DX: B20 Human immunodeficiency virus [HIV] disease (principal); Z79.899 Other long term (current) drug therapy
CPT/HCPCS: 36415; 80053; 87536; 85025; 86359; 86360